=== PATIENT | male | born 1960 | race Two or more races ===

== ENCOUNTER 2024-09-03 10:15 | Emergency (ER) | payer MEDICAID, SELFPAY ==
[2024-09-03] VITALS (7 sets, daily range): BP systolic 163–198; BP diastolic 103–110; PULSE 89–104; RESP 18–20; TEMP 36.8–37.1; O2SAT 96–98; BMI 24.1
--- NOTE | ~2024-09-03 | XR_ITS ---
EXAMINATION: XR SACROILIAC JOINT 3 OR MORE VIEWS HISTORY: Right joint pain. COMPARISON: There are no prior studies for comparison. FINDINGS: Four views of the bilateral sacroiliac joints are submitted. The joint spaces are preserved. No erosions are seen. XR/XR sacroiliac joint min 3V IMPRESSION: Unremarkable examination of the bilateral sacroiliac joints. Electronically signed by: Reynaldo Llanos MD 09/03/2024 01:34 PM EDT
--- NOTE | ~2024-09-03 | XR_ITS ---
EXAMINATION: XR LUMBAR SPINE 2-3 VIEWS HISTORY: Back pain COMPARISON: There are no prior studies for comparison. FINDINGS: AP, lateral, and coned down views of the lumbar spine are submitted. Osseous mineralization is normal. Five nonrib-bearing lumbar vertebral bodies are identified, maintaining normal height without evidence of fracture or spondylolisthesis. There is mild rightward curvature which may positional in nature. There is mild degenerative disc disease with anterior and lateral spurring. The intervertebral discs bases are preserved. The posterior elements are intact. The visualized paraspinal soft tissues are unremarkable. XR/XR lumbar spine 2-3V IMPRESSION: Degenerative changes of the lumbar spine as described. Electronically signed by: Reynaldo Llanos MD 09/03/2024 01:33 PM EDT
--- NOTE | ~2024-09-03 | XR_ITS ---
EXAMINATION: XR CHEST CLINICAL INFORMATION: New onset hypertension COMPARISON: None available. TECHNIQUE: Frontal view of the chest was obtained. FINDINGS: No consolidation, pleural effusion or pneumothorax. Cardiomediastinal silhouette size is normal. Calcified plaque thoracic arch. Multilevel thoracic spondylosis. XR/XR chest 1V IMPRESSION: No acute airspace disease. No cardiomegaly. Electronically signed by: Niels Juan MD 09/03/2024 11:47 AM EDT
--- NOTE | 2024-09-03 11:28 | ECG_ITS ---
Test Reason : high bp Blood Pressure : */* mmHG Vent. Rate : 94 BPM Atrial Rate : 94 BPM P-R Int : 154 ms QRS Dur : 86 ms QT Int : 364 ms P-R-T Axes : 52 38 15 degrees QTcB Int : 455 ms Normal sinus rhythm Normal ECG No previous ECGs available Referred By: Alonso Mason Electronically Signed By: SHERINE CONTRERAS MD
--- NOTE | 2024-09-03 11:59 | ED.GENADULT ---
HPI - General Adult General Chief complaint: Extremity Injury, Lower Stated complaint: BLE PAIN X3D,HIGH BP,FROM [facility]ALK[facility] PER EMS Time Seen by Provider: 09/03/24 11:11 Source: patient and tobacco sizer Mode of arrival: ambulatory Limitations: no limitations History of Present Illness ED Provider: DR. Mason HPI narrative: 63-year-old male with no known past medical history has not seen PCP for 20 years was referred from walk-in clinic for further evaluation of high blood pressure. Patient went to walk-in clinic for evaluation of burning sensation in itching sensation along his right leg for many years, and 5 days history of left lower extremity pain start from his left hip radiating down to the back of his left knee, no back pain, no urinary or stool incontinence, no dysuria. Patient is unaware of history of high blood pressure, no headache, no chest pain, no abdominal pain, no fever, chills, not taking any medication for high blood pressure, patient declined use of any drugs. Related Data Previous Rx's ?Medication ?Instructions ?Recorded amlodipine 5 mg tablet 5 mg PO DAILY #30 tabs 09/03/24 ibuprofen 800 mg tablet 800 mg PO Q8H PRN pain #14 tabs 09/03/24 Allergies Allergy/AdvReac Type Severity Reaction Status Date / Time No Known Allergies Allergy Verified 09/03/24 10:39 Review of Systems Review of Systems: All other systems are reviewed and are negative Constitutional: Reports as per HPI and Reports no additional constitutional complaints Eyes: Reports as per HPI and Reports no additional eye complaints Reports system reviewed and no additional complaints, except as documented Cardiovascular: Reports as per HPI and Reports no additional cardiovascular complaints Respiratory: Reports as per HPI and Reports no additional respiratory complaints Gastrointestinal: Reports as per HPI and Reports no additional gastrointestinal complaints Genitourinary: Reports no additional female genitourinary complaints Musculoskeletal: Reports no additional musculoskeletal complaints Skin/Breast: Reports system reviewed and no additional complaints, except as docu Psychiatric: Reports no additional psychiatric complaints Endocrine: Reports no additional endocrine complaints Hematologic/Lymphatic: Reports no additional hematologic/lymphatic complaints Allergic/Immunologic: Reports no additional allergic/immunologic complaints Reports system reviewed and no additional complaints, except as documented and Reports Abnormal speech present [facility] Social History Social History Unable to assess alcohol history related to: Unknown Use of substances other than those prescribed or required for medical reasons: Unknown Advance Directives: No Advance Directives Information Provided: No Physical Exam ED Vital Signs: Vital Signs - 24 hr 09/03/24 10:32 09/03/24 10:36 09/03/24 12:07 Temperature 98.8 F 98.8 F Pulse Rate 101 H 101 H Respiratory Rate 20 20 Blood Pressure 197/104 H 197/104 H 181/110 H Pulse Oximetry 98 98 Oxygen Delivery Method Room Air Room Air 09/03/24 12:28 09/03/24 13:51 Temperature 98.5 F Pulse Rate 97 89 Respiratory Rate 18 20 Blood Pressure 163/103 H Pulse Oximetry 97 96 Oxygen Delivery Method Room Air Room Air BMI result Body Mass Index 24.1 Vital signs have been reviewed and appear to be correct. Blood pressure elevated. Heart rate normal. Respiratory rate normal. Temperature normal. Oxygen saturation normal. Appearance: Alert. Oriented X3. No acute distress. Head: Normal external exam. Normocephalic. Atraumatic. No Villarreal signs noted. No raccoon eyes noted Eyes: PERRLA. EOMI. Conjunctiva and sclera normal. Eyelids normal. ENT: TM's Normal. Pharynx normal. Uvula midline. Moist mucous membranes. No trismus noted. No drooling noted. No muffled voice noted. Neck: Normal inspection. Neck supple. FROM. No adenopathy. Thyroid Normal. No meningeal signs. No neck mass noted. CVS: Normal heart rate and rhythm. Heart sound normal. No murmurs noted. Pulses normal throughout. Respiratory: No respiratory distress. Painless inspiration. Breath sounds normal. No wheezes/rales/rhonchi noted. Chest nontender. No accessory muscle usage noted or decreased air movement noted. Abdomen: Soft and nontender. Bowel sounds normal in all 4 quadrants. No distention noted. No organomegaly noted. No visible injury noted. Back: No CVA tenderness. Full range of motion noted. Skin: Skin warm and dry. Normal skin color. Normal skin turgor. No rashes/lesions/lacerations noted. Extremities: No lower extremity edema. Extremities exhibit normal range of motion. Extremities nontender. Neuro: Oriented X 3. Cranial nerve exam: II-XII are grossly intact No motor deficit. No sensory deficit. Reflexes normal. Course Reevaluation(s) Reevaluation #1: 63-year-old male with no known past medical history and has not been evaluated by a doctor for 20 years sent from walk-in clinic for evaluation of high blood pressure, patient is also been complaining of multiple symptoms appeared to be chronic. 1. Essential hypertension patient improved in the ED with amlodipine and control the pain of his left lower extremity. Will start the patient on amlodipine, patient was instructed using the tobacco sizer to follow-up with PCP, patient was given a prescription for a non supply of amlodipine 5 mg. 2. Left lumbar radiculopathy patient improved with pain medication anti-inflammatory medication discharge on a NSAIDs. Time: 14:17 Medications Administered Discontinued Medications Generic Name Dose Route Start Last Admin Trade Name Orlandoq PRN Reason Stop Dose Admin Amlodipine Besylate 5 mg 09/03/24 11:26 09/03/24 12:07 Amlodipine Besylate 5 Mg Tablet PO 09/03/24 11:27 5 mg ONCE ONE Administration Protocol Ibuprofen 400 mg 09/03/24 11:26 09/03/24 12:06 Ibuprofen 400 Mg Tablet PO 09/03/24 11:27 400 mg ONCE ONE Administration Oxycodone HCl 5 mg 09/03/24 11:26 09/03/24 12:06 Oxycodone Hcl Immed Release 5 Mg Tablet PO 09/03/24 11:27 5 mg ONCE ONE Administration Medical Decision Making Differential Diagnosis Differential Diagnoses: The differential diagnosis associated with the presentation includes (Left Lumbar radiculopathy, iliosacral arthritis, essential hypertension, end-organ damage from untreated hypertension electrolyte derangement, severe anemia.) Admission/Observation Consideration of admission/observation: Escalation of care including admission/observation considered Lab Data MDM Lab Attestation statement: I reviewed the patient's lab results. 09/03/24 12:03 09/03/24 12:03 Labs: Lab Results 09/03/24 Range/Units 12:03 WBC 6.6 (4.8-10.8) X10*3/uL RBC 4.73 (4.60-5.80) X10*6/uL Hgb 13.5 L (14.0-18.0) g/dl Hct 38.9 L (42.0-52.0) % MCV 82.2 (80.0-98.0) fL MCH 28.5 (27.0-33.0) pg MCHC 34.7 (31.0-36.0) g/dl RDW 12.2 (11.0-16.0) % Plt Count 254 (160-400) X10*3/uL MPV 10.3 (9.4-12.4) fL Immature Gran % (Auto) 0.3 (0.0-0.4) % Neut % (Auto) 63.7 (45-73) % Lymph % (Auto) 27.1 (20-40) % Hendricks % (Auto) 7.2 (2-11) % Eos % (Auto) 0.9 (0-4) % Baso % (Auto) 0.8 (0-2) % Lymph # (Auto) 1.8 (1.2-4.9) X10*3/uL Hendricks # (Auto) 0.5 (0.1-1.2) X10*3/uL Eos # (Auto) 0.1 (0.0-0.4) X10*3/uL Baso # (Auto) 0.1 (0.0-0.2) X10*3/uL Abs Immat Gran (auto) 0.02 (0.00-0.03) X10*3/uL Absolute Neuts (auto) 4.2 (2.0-8.3) x10*3/uL Absolute Nucleated RBC 0.000 (0.0-0.012) X10*3/uL Nucleated RBC % (auto) 0.0 (0.0-0.2) /100WBC Sodium 142 (135-145) mmol/L Potassium 3.5 (3.3-5.1) mmol/L Chloride 103 (96-108) mmol/L Carbon Dioxide 28 (22-29) mmol/L Anion Gap 15 (12-20) BUN 11 (9-16) mg/dL Creatinine 0.85 (0.5-1.4) mg/dL Estim Creat Clear Calc 77.3 Estimated GFR > 60 Random Glucose 95 (60-115) mg/dL Calcium 9.0 (8.4-10.2) mg/dL Total Bilirubin 0.6 (0.0-1.0) mg/dL Direct Bilirubin 0.2 (0.0-0.5) mg/dL AST 32 (5-37) U/L ALT 22 (0-40) U/L Alkaline Phosphatase 70 (39-117) U/L Troponin I High Sens 8.9 (<3.5-35.0) ng/L Total Protein 7.6 (6.5-8.0) g/dL Albumin 4.1 (3.5-5.0) g/dL Lipase 20 (8-78) U/L Urine Color Yellow Urine Appearance Clear Urine pH 6.0 (5.0-9.0) Ur Specific [place] 1.015 (1.005-1.025) Urine Protein 30 (1+) H (Neg-Trace) mg/dL Urine Glucose (UA) Negative (Negative) mg/dL Urine Ketones Negative (Negative) mg/dL Urine Blood Negative (Negative) Urine Nitrite Negative (Negative) Ur Leukocyte Esterase Negative (Negative) Urine RBC 0-2 (0-2) /HPF Urine WBC 0-5 (0-5) /HPF Ur Squamous Epith Cells 0-2 (0-2) /HPF Urine Bacteria None Seen (None Seen) Hyaline Casts 0-2 (0-2) /LPF Independent Interpretation I performed an independent interpretation of an: EKG (Normal sinus rhythm at 94 beats per minutes, normal intervals, no ST-T changes.) and Plain X-Ray (Chest: Sacroiliac: Lumbar x-rays: No acute airspace disease, no cardiomegaly, unremarkable bilateral sacroiliac joints, degenerative change of lumbar spine.) Radiology Impression Discussion of test interpretation with radiology: I have reviewed the radiologist's reading. Discharge Plan Discharge Clinical Impression: Essential hypertension, Left lumbar radiculopathy Patient Disposition: Home, Self-Care Instructions: Lumbar Radiculopathy (ED), Hypertension (ED) Prescriptions: New amlodipine 5 mg tablet 5 mg PO DAILY Qty: 30 0RF ibuprofen 800 mg tablet 800 mg PO Q8H PRN (Reason: pain) Qty: 14 0RF Referrals: [facility] [Primary Care Provider] - Print Language: Angolan
[2024-09-03] MEDS: Ibuprofen 400 MG TABLET PO (12:06)
[2024-09-03] MEDS: oxyCODONE HCl Immed Release 5 MG TABLET PO (12:06)
[2024-09-03] MEDS: amLODIPine Besylate 5 MG TABLET PO (12:07)
[2024-09-03 12:08] LABS: MANUAL DIFF FLAG NO
[2024-09-03 12:10] LABS: Basophils Absolute Auto 0.1 X10*3/uL (0.0-0.2); Basophils Percent Auto 0.8 % (0-2); Eosinophils Absolute Auto 0.1 X10*3/uL (0.0-0.4); Eosinophils Percent Auto 0.9 % (0-4); Hematocrit 38.9 % (42.0-52.0); Hemoglobin 13.5 g/dl (14.0-18.0); Imm Gran Abs Auto 0.02 X10*3/uL (0.00-0.03); Imm Gran Pct Auto 0.3 % (0.0-0.4); Lymphocytes Absolute Auto 1.8 X10*3/uL (1.2-4.9); Lymphocytes Percent Auto 27.1 % (20-40); Mean Corpuscular HGB Conc 34.7 g/dl (31.0-36.0); Mean Corpuscular Hemoglobin 28.5 pg (27.0-33.0); Mean Corpuscular Volume 82.2 fL (80.0-98.0); Mean Platelet Volume 10.3 fL (9.4-12.4); Monocytes Absolute Auto 0.5 X10*3/uL (0.1-1.2); Monocytes Percent Auto 7.2 % (2-11); Neutrophils Absolute Auto 4.2 x10*3/uL (2.0-8.3); Neutrophils Percent Auto 63.7 % (45-73); Platelet Count 254 X10*3/uL (160-400); Red Blood Count 4.73 X10*6/uL (4.60-5.80); Red Cell Distribution Width 12.2 % (11.0-16.0); White Blood Count 6.6 X10*3/uL (4.8-10.8)
[2024-09-03 12:12] LABS: Appearance Urine Clear; Color Urine Yellow; Glucose Urine UA Negative (Negative); Leukocyte Esterase Urine Negative (Negative); Nitrite Urine Negative (Negative); Specific Gravity - Urine 1.015 (1.005-1.025); UMIC TRIGGER UACC YES; Urine Blood Negative (Negative); Urine Ketones Negative (Negative); Urine Protein 30 (1+) mg/dL (Neg-Trace)
[2024-09-03 12:14] LABS: Bacteria Urine None Seen (None Seen); Hyaline Casts Urine 0-2 /LPF (0-2); RBC Urine 0-2 /HPF (0-2); Squamous Epithelial Cell Urine 0-2 /HPF (0-2); WBC Urine 0-5 /HPF (0-5)
[2024-09-03 12:38] LABS: Troponin-I High Sensitivity 8.9 ng/L (<3.5-35.0)
[2024-09-03 12:43] LABS: Alanine Aminotransferase 22 U/L (0-40); Albumin Level 4.1 g/dL (3.5-5.0); Alkaline Phosphatase 70 U/L (39-117); Anion Gap 15 (12-20); Aspartate Amino Transferase 32 U/L (5-37); Bilirubin Direct 0.2 mg/dL (0.0-0.5); Bilirubin Total 0.6 mg/dL (0.0-1.0); Blood Urea Nitrogen 11 mg/dL (9-16); Carbon Dioxide 28 mmol/L (22-29); Chloride 103 mmol/L (96-108); Creatinine Clr Calc Pharmacy 77.3; Estimated Glomerular Filt Rate > 60; Glucose Random 95 mg/dL (60-115); Lipase 20 U/L (8-78); Potassium 3.5 mmol/L (3.3-5.1); Sodium 142 mmol/L (135-145); Total Protein 7.6 g/dL (6.5-8.0)
--- OUTSIDE RECORDS SUMMARY | 2024-09-03 13:21 | XMS_ITS | Clinical Summary ---
Author Organization [employer] Address [address] [facility] [address] [place] [address] Care Team Providers Care Hadoop Developer Name Role Phone Unavailable Primary Care Provider Unavailabl e Allergies No known active allergies Medications losartan (Cozaar) 50 MG tablet Take 1 tablet (50 mg) by mouth Once per day. 30 tablet 3 09/03/2024 6 Active hydroCHLOROthia zide (HYDRODiuril) 25 MG tablet Take 1 tablet (25 mg) by mouth Once per day. 30 tablet 3 09/03/2024 6 Active baclofen (Lioresal) 10 MG tablet Take 1 tablet (10 mg) by mouth if needed in the morning, at noon, and at bedtime for muscle spasms. 60 tablet 1 09/03/2024 5 Active acetaminophen (Tylenol 8 Hour) 650 MG ER tablet Take 1 tablet (650 mg) by mouth every 8 (eight) hours if needed for mild pain. Do not crush, chew, or split. 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 08/19/2024 Population Health Risk Score [facility] (C3) Department [address] [phone] Provider, Population Health Generic from Last 3 Months Social History Tobacco Use Types Packs/Day Years Used Date Smoking Tobacco: Never Assessed Sex and Gender Information Value Date Recorded Sex Assigned at Male 09/03/2024 8:38 AM EDT Legal Sex Male 1:53 PM EST Gender Identity Male 09/03/2024 8:38 AM EDT Sexual Orientation Straight 09/03/2024 8: 39 AM EDT Last Filed Vital Signs Vital Sign Reading Time Taken Comments Blood Pressure 220/132 09/03/2024 12:54 PM EDT Pulse 103 09/03/2024 8:56 AM EDT Temperature 36.6 ??C (97.9 ??F) 09/03/2024 8:56 AM ED T Respiratory Rate 18 09/03/2024 8:56 AM EDT Oxygen Saturation 97% 09/03/2024 8:56 AM EDT Inhaled Oxygen Concentration - - Weight 84.9 kg (187 lb 3.2 oz) 09/03/2024 8:56 A M EDT Height - - Body Mass Index - - Plan of Treatment Health Maintenance Due Date Last Done Comments CT Colonography 1960 Colonoscopy 1960 Colorectal Cancer Screening 1960 Depression Screening 1960 FIT DNA/Cologuard 1960 FIT 1960 FOBT 1960 HIV Screening 1960 Lipid Panel 1960 SDOH Screening 1960 Sigmoidoscopy 1960 Alcohol/Substance Use Screening 1972 Tobacco Screening 1972 Hepatitis C Screening 1978 DTaP/Tdap/Td Vaccines (1 - Tdap) 10/02/1979 Pneumococcal Vaccine: 50+ Ye ars (1 of 1 - PCV) 2010 Zoster Vaccines (1 of 2) 2010 COVID-19 Vaccine ( - 2023-2 5 season) 2024 Influenza Vaccine (#1) 2024 RSV Patients and Pa tients Aged 60 years or older (1 - 1-dose 75+ series) 10/02/2035 HIB Vaccines Aged Out No longer eligi ble based on patient's age to complete this topic HPV Vaccines Aged Out No longer eligi ble based on patient's age to complete this topic Hepatitis A Vaccines Aged Out No long er eligible based on patient's age to complete this topic Hepatitis B Vaccines Aged Out No long er eligible based on patient's age to complete this topic IPV Vaccines Aged Out No longer eligi ble based on patient's age to complete this topic Meningococcal Vaccine Aged Out No darrius daniel eligible based on patient's age to complete this topic RSV under 20 months Aged Out No longe r eligible based on patient's age to complete this topic Rotavirus Vaccines Aged Out No longer eligible based on patient's age to complete this topic Procedures Procedure Name Priority Date/Time Associated Diagnosis Comments LIPASE Routine 09/03/2024 12:03 PM EDT BASIC METABOLIC PANEL Routine 09/03/2024 12:03 PM EDT HEPATIC FUNCTION PANEL Routine 09/03/2024 12:03 PM EDT HIGH SENSITIVITY TROPONIN I Routine 09/03/2024 12:03 PM EDT from Last 3 Months Results * High Sensitivity Troponin I (09/03/2024 12:03 PM EDT) Pathologist [facility] TROPONIN I HIGH SENSITIVITY 8.9 <3.5 - 35.0 ng/L [facility] Comment:The Humphreys high sens itivity Troponin-I results should beused in conjunction with other diagnostic information suchas ECG, clinical observations and information, and patientsymptoms to aid in the diagnosis of ME. 09/03/2024 12:0 3 PM EDT 09/03/2024 12:06 PM EDT us Generic External Data Provider LAB BLOOD ORDERAB LES Final Result [facility] [address] [place] [phone] * Lipase (09/03/2024 12:03 PM EDT) Pathologist [facility] Lipase 20 8 - 78 U/L [facility] 09/03/2024 12:0 3 PM EDT 09/03/2024 12:06 PM EDT us Generic External Data Provider LAB BLOOD ORDERAB LES Final Result Performing Organization Address [facility]/ZIP Co de Phone Number [facility] [address] [place] [phone] * Hepatic Function Panel (09/03/2024 12:03 PM EDT) Pathologist [facility] Bilirubin, Total 0.6 0.0 - 1.0 mg/dL [facility] Bilirubin, Direct 0.2 0.0 - 0.5 mg/dL [facility] Aspartate Amino Transferase 32 5 - 37 U/L [facility] Alanine Aminotransferase 22 0 - 40 U/L [facility] Total Protein 7.6 6.5 - 8.0 g/dL [facility] Albumin Level 4.1 3.5 - 5.0 g/dL [facility] Alkaline Phosphatase 70 39 - 117 U/L [facility] 09/03/2024 12:0 3 PM EDT 09/03/2024 12:06 PM EDT Generic External Data Provider LAB BLOOD ORDERAB LES Final Result Performing Organization Address [facility] Co de Phone Number [facility] [address] [place] [phone] * Basic Metabolic Panel (09/03/2024 12:03 PM EDT) Sodium 142 135 - 145 mmol/L [facility] Potassium 3.5 3.3 - 5.1 mmol/L [facility] Chloride 103 96 - 108 mmol/L [facility] Carbon Dioxide 28 22 - 29 mmol/L [facility] Anion Gap 15 12 - 20 [facility] Urea Nitrogen (BUN) 11 9 - 16 mg/dL [facility] Creatinine, Serum 0.85 0.5 - 1.4 mg/dL [facility] Creatinine Clr Calc Pharmacy 77.3 [facility] Comment:eGFR (calculated fro m the MDRD study equation) and eCrCl(calculated from the Cockcroft-Gault equation) are based ondifferent parameters and may not yield comparable results.If eCrCl result is absurd, please check patient'sheight/weight. Estimated Glomerular Filt Rate >60 [facility] Comment:Chronic Kidney Disea se: Estimated GFR < 60 mL/min/[id number] Kidney Disease: Estimated GFR < 15 mL/min/1.73m2 Glucose 95 60 - 115 mg/dL [facility] Calcium 9.0 8.4 - 10.2 mg/dL [facility] 09/03/2024 12:0 3 PM EDT 09/03/2024 12:06 PM EDT us Generic External Data Provider LAB BLOOD ORDERAB LES Final Result Performing Organization Address City/State/[facility] Co de Phone Number [facility] [address] [place] [phone] from Last [address] [place] [address] [place] [address]
--- OUTSIDE RECORDS SUMMARY | 2024-09-03 13:21 | XMS_ITS | Encounter Summary ---
Author Organization [employer] Address [address] 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 Moore, 911 called for pt. Transfer to [facility] for non specific EKG changes and hypertensive crisis. Pt is a new pt to [facility], from [place], initially presented to [facility] for c/o bilat. Leg pain. No prior health data available. 911 called, MD calling expect report to ED. Triage BP 210/136 HR 103 911 called, pt's BP reassessed by this communications writer at 0955: Right arm, sitting 206/134 adult cuff HR 134 Pt denies chest pain, LUIS Reports bilat leg pain. 1000: EMS arrival, report given Manual BP rechecked: 200/110 Pt transported to [facility] Phone numbers confirmed: Pt: Brother Alex Michele: [phone] documented in this encounter Plan of Treatment Not on file documented as of this encounter Visit Diagnoses Not on filedocumented in this encounter
--- OUTSIDE RECORDS SUMMARY | 2024-09-03 13:21 | XMS_ITS | Encounter Summary ---
Author Organization [employer] Address [address] [facility] [address] [place] [address] Care Team Providers Care Geriatric Psychiatrist Name Role Phone Unavailable Primary Care Provider Unavailabl e Encounter Details Date Type Department Care Team (Late st Contact Info) Description 09/03/2024 Orders Only GENERIC EXTERNAL DATA DEPARTMENT Provider, Generic External Data Social History Tobacco Use Types Packs/Day Years Used Date Smoking Tobacco: Never Assessed Sex and Gender Information Value Date Recorded Sex Assigned at Male 09/03/2024 8:38 AM EDT Legal Sex Male 1:53 PM EST Gender Identity Male 09/03/2024 8:38 AM EDT Sexual Orientation Straight 09/03/2024 8: 39 AM EDT documented as of this encounter Plan of Treatment Not on file documented as of this encounter Procedures Procedure Name Priority Date/Time Associated Diagnosis Comments HIGH SENSITIVITY TROPONIN I Routine 09/03/2024 12:03 PM EDT LIPASE Routine 09/03/2024 12:03 PM EDT HEPATIC FUNCTION PANEL Routine 09/03/2024 12:03 PM EDT BASIC METABOLIC PANEL Routine 09/03/2024 12:03 PM EDT documented in this encounter Results * Lipase (09/03/2024 12:03 PM EDT) Lipase 20 8 - 78 U/L [facility] 09/03/2024 12:0 3 PM EDT 09/03/2024 12:06 PM EDT us Generic External Data Provider LAB BLOOD ORDERAB LES Final Result [facility] [address] [place] [phone] * Basic Metabolic Panel (09/03/2024 12:03 PM EDT) Sodium 142 135 - 145 mmol/L [facility] Potassium 3.5 3.3 - 5.1 mmol/L [facility] Chloride 103 96 - 108 mmol/L [facility] Carbon Dioxide 28 22 - 29 mmol/L [facility] Anion Gap 15 12 - 20 [facility] Urea Nitrogen (BUN) 11 9 - 16 mg/dL [facility] Creatinine, Serum 0.85 0.5 - 1.4 mg/dL [facility] Creatinine Clr Calc Pharmacy 77.3 [facility] Comment:eGFR (calculated fro m the MDRD study equation) and eCrCl(calculated from the Cockcroft-Gault equation) are based ondifferent parameters and may not yield comparable results.If eCrCl result is absurd, please check patient'sheight/weight. Estimated Glomerular Filt Rate >60 [facility] Comment:Chronic Kidney Disea se: Estimated GFR < 60 mL/min/[id number] Kidney Disease: Estimated GFR < 15 mL/min/1.73m2 Glucose 95 60 - 115 mg/dL [facility] Calcium 9.0 8.4 - 10.2 mg/dL [facility] 09/03/2024 12:0 3 PM EDT 09/03/2024 12:06 PM EDT us Generic External Data Provider LAB BLOOD ORDERAB LES Final Result [facility] [address] [place] [phone] * Hepatic Function Panel (09/03/2024 12:03 PM EDT) Bilirubin, Total 0.6 0.0 - 1.0 mg/dL [facility] Bilirubin, Direct 0.2 0.0 - 0.5 mg/dL [facility] Aspartate Amino Transferase 32 5 - 37 U/L [facility] Alanine Aminotransferase 22 0 - 40 U/L [facility] Total Protein 7.6 6.5 - 8.0 g/dL [facility] Albumin Level 4.1 3.5 - 5.0 g/dL [facility] Alkaline Phosphatase 70 39 - 117 U/L [facility] 09/03/2024 12:0 3 PM EDT 09/03/2024 12:06 PM EDT us Generic External Data Provider LAB BLOOD ORDERAB LES Final Result Performing Organization Address [facility] de Phone Number [facility] [address] [place] [phone] * High Sensitivity Troponin I (09/03/2024 12:03 PM EDT) TROPONIN I HIGH SENSITIVITY 8.9 <3.5 - 35.0 ng/L [facility] Comment:The Humhpreys high sens itivity Troponin-I results should beused in conjunction with other diagnostic information suchas ECG, clinical observations and information, and patientsymptoms to aid in the diagnosis of MS. 09/03/2024 12:0 3 PM EDT 09/03/2024 12:06 PM EDT us Generic External Data Provider LAB BLOOD ORDERAB LES Final Result Performing Organization Address [facility] Co de Phone Number [facility] [address] [place] [phone] documented in this encounter Visit Diagnoses Not on filedocumented in this encounter
--- OUTSIDE RECORDS SUMMARY | 2024-09-03 13:21 | XMS_ITS | Encounter Summary ---
Author Organization [employer] Address [address] [place] [address] Care Team Providers Care Demolition Hammer Operator Name Role Phone Unavailable Primary Care Provider Unavailabl e Reason for Referral * Imaging (Routine) - Authorized Specialty Diagnoses / Procedures Referred By Contac t Referred To Contact Cardiology Diagnoses Hypertensive emergency Bilateral leg pain Procedures Vascular US lower extremity arterial duplex bilateral Elizabeth Espinal DO [address] [place] [address] Phone: tel: fax: [address] Phone: tel: fax: Referral ID Status Reason Start Date Expiration Date Visits Requested Visits Authorized [id number] Authorized Perform Procedure 09/03/2024 09/03/2025 1 1 * Neurology (Routine) - Authorized Specialty Diagnoses / Procedures Referred By Contac t Referred To Contact Diagnoses Hypertensive emergency Bilateral leg pain Procedures Nerve conduction test Elizabeth Espinal DO [address] [place] [address] Phone: tel: fax: [address] Phone: tel: fax: Referral ID Status Reason Start Date Expiration Date V isits Requested Visits Authorized [id number] Authorized 09/03/2024 09/03/2025 1 1 * Neurology (Routine) - Authorized Specialty Diagnoses / Procedures Referred By Contac t Referred To Contact Diagnoses Hypertensive emergency Bilateral leg pain Procedures EMG Elizabeth Espinal DO [address] [place] [address] Phone: tel: fax: [address] Phone: tel: fax: Referral ID Status Reason Start Date Expiration Date V isits Requested Visits Authorized [id number] Authorized 09/03/2024 09/03/2025 1 1 Reason for Visit * Reason Comments Leg Pain Encounter Details Date Type Department Care Team (Late st Contact Info) Description 09/03/2024 9:20 AM EDT Office Visit [facility] [address], [place] [id number] Hypertensive emergency (Primary Dx); Bilateral leg pain Social History Tobacco Use Types Packs/Day Years Used Date Smoking Tobacco: Never Assessed Sex and Gender Information Value Date Recorded Sex Assigned at Male 09/03/2024 8:38 AM EDT Legal Sex Male 1:53 PM EST Gender Identity Male 09/03/2024 8:38 AM EDT Sexual Orientation Straight 09/03/2024 8: 39 AM EDT documented as of this encounter Last Filed Vital Signs Vital Sign Reading [...] - - Body Mass Index - - documented in this encounter Plan of Treatment Scheduled Orders Name Type Priority Associated Diagnoses Orde r Schedule T4, Free Lab Routine Hypertensive emergency Bilateral leg pain Expected: 09/03/2024 (Approximate), Expires: 09/03/2025 Vitamin D, 25-Hydroxy, Total, Immunoassay Lab Routine Hypertensive emergency Bilateral leg pain Expected: 09/03/2024 (Approximate), Expires: 09/03/2025 Lipid Panel, Standard Lab Routine Hypertensive emergency Bilateral leg pain Expected: 09/03/2024 (Approximate), Expires: 09/03/2025 TSH Lab Routine Hypertensive emergency Bilateral leg pain Expected: 09/03/2024 (Approximate), Expires: 09/03/2025 Hepatic Function Panel Lab Routine Hypertensive emergency Bilateral leg pain Expected: 09/03/2024 (Approximate), Expires: 09/03/2025 Hemoglobin A1c Lab Routine Hypertensive emergency Bilateral leg pain Expected: 09/03/2024 (Approximate), Expires: 09/03/2025 Basic Metabolic Panel Lab Routine Hypertensive emergency Bilateral leg pain Expected: 09/03/2024 (Approximate), Expires: 09/03/2025 CBC Lab Routine Hypertensive emergency Bilateral leg pain Expected: 09/03/2024, Expires: 09/03/2025 Albumin, Random Urine W/Creatinine Lab Routine Hypertensive emergency Bilateral leg pain Expected: 09/03/2024 (Approximate), Expires: 09/03/2025 Hepatitis B surface antigen, EIA Lab Routine Hypertensive emergency Bilateral leg pain Expected: 09/03/2024 (Approximate), Expires: 09/03/2025 Chlamydia/N. Gonorrhoeae RNA, TMA, Urogenitial Microbiology Routine Hypertensive emergency Bilateral leg pain Ordered: 09/03/2024 HIV-1/2 Antigen and Antibodies, Fourth Generation, with Reflexes Lab Routine Hypertensive emergency Bilateral leg pain Expected: 09/03/2024 (Approximate), Expires: 09/03/2025 Hepatitis C Antibody with Reflex to HCV, RNA, Quantitative, Real-Time PCR Lab Routine Hypertensive emergency Bilateral leg pain Expected: 09/03/2024, Expires: 09/03/2025 RPR (Monitor) with Reflex to??Titer Lab Routine Hypertensive emergency Bilateral leg pain Expected: 09/03/2024, Expires: 09/03/2025 Hepatitis B Surface Antibody, Qualitative Lab Routine Hypertensive emergency Bilateral leg pain Expected: 09/03/2024 (Approximate), Expires: 09/03/2025 Hepatitis A Antibody, Total Lab Routine Hypertensive emergency Bilateral leg pain Expected: 09/03/2024 (Approximate), Expires: 09/03/2025 Hepatitis B Core Antibody, Total Lab Routine Hypertensive emergency Bilateral leg pain Expected: 09/03/2024 (Approximate), Expires: 09/03/2025 T-SPOT??.TB Lab Routine Hypertensive emergency Bilateral leg pain Expected: 09/03/2024 (Approximate), Expires: 09/03/2025 Varicella zoster antibody, IgG Lab Routine Hypertensive emergency Bilateral leg pain Expected: 09/03/2024 (Approximate), Expires: 09/03/2025 Measles, Mumps, and Rubella (MMR) Antibodies??(IgG) Panel, Immune Status Lab Routine Hypertensive emergency Bilateral leg pain Expected: 09/03/2024 (Approximate), Expires: 09/03/2025 EMG Neurology Routine Hypertensive emergency Bilateral leg pain Expected: 09/03/2024 (Approximate), Expires: 09/03/2025 Nerve conduction test Neurology Routine Hypertensive emergency Bilateral leg pain Expected: 09/03/2024 (Approximate), Expires: 09/03/2025 XR Lumbar Spine 2-3 Views Imaging Routine Hypertensive emergency Bilateral leg pain Expected: 09/03/2024, Expires: 09/03/2025 ECG 12 lead ECG Routine Hypertensive emergency Ordered: 09/03/2024 documented as of this encounter Visit Diagnoses Diagnosis Hypertensive emergency- Primary Bilateral leg pain Pain in soft tissues of limb documented in this encounter
== END 2024-09-03 14:45 | disposition home or self-care (01) ==
PROVIDERS: Emergency Provider Emergency Medicine
DX: M54.16 Radiculopathy, lumbar region (principal); I10 Essential (primary) hypertension
CPT/HCPCS: 36415; 71045; 72100; 72202; 80048; 80076; 81001; 83690; 84484; 85025; 93005; 99283; 99285

== ENCOUNTER → 2024-09-03 11:28 | Outpatient (BNV) | payer MEDICAID, SELFPAY | PROVIDERS: Emergency Provider Emergency Medicine; Visit Provider Radiology Diagnostic Radiology | DX: I10 Essential (primary) hypertension (principal); M46.1 Sacroiliitis, not elsewhere classified; M51.360 Other intervertebral disc degeneration, lumbar region with discogenic back pain only | CPT/HCPCS: 71045; 72100; 72202 ==

== ENCOUNTER → 2024-09-03 11:28 | Outpatient (BNV) | payer MEDICAID, SELFPAY | PROVIDERS: Emergency Provider Emergency Medicine; Visit Provider Internal Medicine Cardiovascular Disease | DX: R03.0 Elevated blood-pressure reading, without diagnosis of hypertension (principal) | CPT/HCPCS: 93010 ==

== ENCOUNTER 2024-09-15 08:24 | Outpatient (REF) | payer MEDICAID, SELFPAY ==
--- NOTE | 2024-09-15 08:28 | EMG_ITS ---
Bilateral tibial and peroneal motor studies were performed. Bilateral superficial peroneal, sural, and median and lateral mixed plantar sensory studies were performed. Tibial H reflexes were obtained and paraspinal muscles were tested with a needle. IMPRESSION: Mild to moderate axonal sensory motor peripheral neuropathy. MD JASON Arreola/MELITONL / [id number]
--- OUTSIDE RECORDS SUMMARY | 2024-09-15 08:43 | XMS_ITS | Clinical Summary ---
Author Organization eTipping Address [address] 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 Name Role Phone Elziabeth Espinal DO Primary Care Provider Allergies No known active allergies Medications losartan [...] Description 09/03/2024 9:20 AM EDT Office Visit [facility] [address] [place] [address] Elizabeth Espinal DO Hypertensive emergency (Primary Dx); Bilateral leg pain 09/03/2024 Orders Only GENERIC EXTERNAL DATA DEPARTMENT Provider, Generic External Data 09/03/2024 Telephone [facility] [address] [place] [address] 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, pmo lead to [facility] 08/19/2024 Population Health Risk Score [facility] Department [address] [place] [address], [place] [phone] Provider, Population Health Generic from Last [...] Procedure Name Priority Date/Time Associated Diagnosis Comments ECG 12-LEAD Routine 09/03/2024 3:35 PM EDT Hypertensive emergency XR LUMBAR SPINE 2-3 VIEWS Routine 09/03/2024 1:20 PM EDT XR SACROILIAC JOINTS 3+ VIEWS Routine 09/03/2024 1:11 PM EDT URINALYSIS, COMPLETE, WITH REFLEX TO CULTURE Routine 09/03/2024 12:03 PM EDT CBC WITH AUTO DIFFERENTIAL Routine 09/03/2024 12:03 PM EDT LIPASE Routine 09/03/2024 12:03 PM EDT BASIC METABOLIC PANEL Routine 09/03/2024 12:03 PM EDT HEPATIC FUNCTION PANEL Routine 09/03/2024 12:03 PM EDT HIGH SENSITIVITY TROPONIN I Routine 09/03/2024 12:03 PM EDT XR CHEST 1 VIEW Routine 09/03/2024 11:28 AM EDT from Last 3 Months Results * ECG 12 lead (09/03/2024 3:35 PM EDT) Narrative Elizabeth Espinal DO - 09/03/2024 3:35 PM EDT Nml axis, nml intervals, SR @ 97bpm No q waves, no ST depression/elevation, TWI III, TWF aVF, V2 us Elizabeth Espinal DO ECG ORDERABLES Final Result * XR Lumbar Spine 2-3 Views (09/03/2024 1:20 PM EDT) Anatomical Region Laterality Modality Spine, L-spine Radiographic Maria C ging 09/03/2024 1:20 PM EDT Narrative 09/03/2024 1:36 PM EDT ? [facility] ?[address] ?[place] [address] ?XRay Report ? Signed ? Patient: Michael Yadav ?MR# ?? : [id number] ? : 1960 ?Acct:[id number] ? Age/Sex: 63 / M ?ADM Date: 09/03/24 ? Loc: HO.ED ? Attending Dr: ? Ordering Physician: Alonso Mason MD ?? Date of Service: 09/03/24 ?? Procedure(s): XR lumbar spine 2-3V ?? Accession Number(s): [id number] ? cc: Alonso Mason MD; [facility] ? EXAMINATION: ??XR LUMBAR SPINE 2-3 VIEWS ? HISTORY: Back pain ? COMPARISON: There are no prior studies for comparison. ? FINDINGS: ??AP, lateral, and coned down views of the lumbar spine are ?? submitted. ??Osseous mineralization is normal. ??Five nonrib-bearing ?? lumbar vertebral bodies are identified, maintaining normal height ?? without evidence of fracture or spondylolisthesis. There is mild ?? rightward curvature which may positional in nature. ??There is mild ?? degenerative disc disease with anterior and lateral spurring. The ?? intervertebral discs bases are preserved. ??The posterior elements are ?? intact. ??The visualized paraspinal soft tissues are unremarkable. ? XR/XR lumbar spine 2-3V ?? IMPRESSION: ?? Degenerative changes of the lumbar spine as described. ? Electronically signed by: ??Reynaldo Llanos MD ??09/03/2024 01:33 PM EDT ?? RP ? Dictated By: ?Reynaldo Llanos MD ? Signed By: ?<Electronically signed by Reynaldo Llanos MD in OV> ?09/03/24 1333 ? DD/ 1320 ? TD/TT: 09/03/24 1329 ? Magnetic Testing Technician: ? Procedure Note Donotuseinterpreter, Image - 09/03/2024 [place] [address] XRay Report Signed Patient: Kat Yadav# : [id number] : 1Acct:[id number] Age/Sex: 63 / MADM Date: 09/03/24 Loc: .ED Attending Dr: Ordering Physician: Alonso Mason MD Date of Service: 09/03/24 Procedure(s): XR lumbar spine 2-3V Accession Number(s): [id number] cc: Alonso Mason MD; [facility] EXAMINATION: XR LUMBAR SPINE 2-3 VIEWS HISTORY: Back pain COMPARISON: There are no prior studies for comparison. FINDINGS: AP, lateral, and coned down views of the lumbar spine are submitted. Osseous mineralization is normal. Five nonrib-bearing lumbar vertebral bodies are identified, maintaining normal height without evidence of fracture or spondylolisthesis. There is mild rightward curvature which may positional in nature. There is mild degenerative disc disease with anterior and lateral spurring. The intervertebral discs bases are preserved. The posterior elements are intact. The visualized paraspinal soft tissues are unremarkable. XR/XR lumbar spine 2-3V IMPRESSION: Degenerative changes of the lumbar spine as described. Electronically signed by: Reynaldo Llanos MD 09/03/2024 01:33 PM EDT Dictated By: Reynaldo Llanos MD Signed By: <Electronically signed by Reynaldo Llanos MD in OV> 09/03/24 1333 DD/ 1320 TD/TT: 09/03/24 1329 Magnetic Testing Technician: us [facility] External Provider IMG XR PROCEDURES Final Result * XR Sacroiliac Joints 3+ Views (09/03/2024 1:11 PM EDT) Anatomical Region Laterality Modality Sacroiliac joint, Pelvis Radiogr aphic Imaging 09/03/2024 1:11 PM EDT Narrative 09/03/2024 1:37 PM EDT ? [facility] ?[address] ?[place] [address] ?XRay Report ? Signed ? Patient: Michael Yadav ?MR# ?? : [id number] ? : 1960 ?Acct:[id number] ? Age/Sex: 63 / M ?ADM Date: 09/03/24 ? Loc: HO.ED ? Attending Dr: ? Ordering Physician: Alonso Mason MD ?? Date of Service: 09/03/24 ?? Procedure(s): XR sacroiliac joint min 3V ?? Accession Number(s): [id number] ? cc: Alonso Mason MD; [facility] ? EXAMINATION: ??XR SACROILIAC JOINT 3 OR MORE VIEWS ? HISTORY: Right joint pain. ? COMPARISON: There are no prior studies for comparison. ? FINDINGS: ??Four views of the bilateral sacroiliac joints are submitted. ?? The joint spaces are preserved. No erosions are seen. ? XR/XR sacroiliac joint min 3V ?? IMPRESSION: ?? Unremarkable examination of the bilateral sacroiliac joints. ? Electronically signed by: ??Reynaldo Llanos MD ??09/03/2024 01:34 PM EDT ?? RP ? Dictated By: ?Faberman,Reynaldo MD ? Signed By: ?<Electronically signed by Reynaldo Llanos MD in OV> ?09/03/24 1334 ? DD/ 1311 ? TD/TT: 09/03/24 1329 ? Magnetic Testing Technician: ? Procedure Note Clayton Roland - 09/03/[address] [address] XRay Report Signed Patient: Kat Yadav# : [id number] : 1Acct:[id number] Age/Sex: 63 / MADM Date: 09/03/24 Loc: .ED Attending Dr: Ordering Physician: Alonso Mason MD Date of Service: 09/03/24 Procedure(s): XR sacroiliac joint min 3V Accession Number(s): [id number] cc: Alonso Mason MD; [facility] EXAMINATION: XR SACROILIAC JOINT 3 OR MORE VIEWS HISTORY: Right joint pain. COMPARISON: There are no prior studies for comparison. FINDINGS: Four views of the bilateral sacroiliac joints are submitted. The joint spaces are preserved. No erosions are seen. XR/XR sacroiliac joint min 3V IMPRESSION: Unremarkable examination of the bilateral sacroiliac joints. Electronically signed by: Reynaldo Llanos MD 09/03/2024 01:34 PM EDT RP Dictated By: Reynaldo Llanos MD Signed By: <Electronically signed by Reynaldo Llanos MD in OV> 09/03/24 1334 DD/ 1311 TD/TT: 09/03/24 1329 Magnetic Testing Technician: us [facility] External Provider IMG XR PROCEDURES Final Result * High Sensitivity Troponin I (09/03/2024 12:03 PM EDT) Pathologist [facility] TROPONIN I HIGH SENSITIVITY 8.9 <3.5 - 35.0 ng/L [facility] Comment:The Humphreys high sens itivity Troponin-I results should beused in conjunction with other diagnostic information suchas ECG, clinical observations and information, and patientsymptoms to aid in the diagnosis of [place]. 09/03/2024 12:0 3 PM EDT 09/03/2024 12:06 PM EDT Generic External Data Provider LAB BLOOD ORDERAB LES Final Result [facility] [address] [place] [phone] * (ABNORMAL) Urinalysis, Complete, with Reflex to Culture (09/03/2024 12:03 PM EDT) Color Urine Yellow [facility] Appearance Urine Clear [facility] PH 6.0 5.0 - 9.0 [facility] Glucose Urine UA Negative Negative mg/dL [facility] Urine Blood Negative Negative [facility] Specific [place] - Urine 1.015 1.005 - 1.025 [facility] Urine Protein 30 (1+)(A) Neg-Trace mg/dL [facility] Urine Ketones Negative Negative mg/dL [facility] Nitrite Urine Negative Negative [facility] Leukocyte Esterase Urine Negative Negative [facility] RBC Urine 0-2 0 - 2 /HPF [facility] Urine WBC 0-5 0 - 5 /HPF [facility] Urine Squamous Epithelial Cell 0-2 0 - 2 /HPF [facility] Urine Bacteria None Seen None Seen [facility] Hyaline Casts, Urine 0-2 0 - 2 /LPF [facility] 09/03/2024 12:0 3 PM EDT 09/03/2024 12:06 PM EDT Narrative [facility] - 09/03/2024 12:16 PM EDT [id number], Clean Catch us Generic External Data Provider LAB URINE ORDERAB LES Final Result [facility] [address] [place] [address] [phone] * (ABNORMAL) CBC auto differential (09/03/2024 12:03 PM EDT) Pathologist [facility] White Blood Count 6.6 4.8 - 10.8 X10*3/uL [facility] Red Blood Count 4.73 4.60 - 5.80 X10*6/uL [facility] Hemoglobin 13.5(L) 14.0 - 18.0 g/dl [facility] Hematocrit 38.9(L) 42.0 - 52.0 % [facility] Mean Corpuscular Volume 82.2 80.0 - 98.0 fL [facility] Mean Corpuscular Hemoglobin 28.5 27.0 - 33.0 pg [facility] Mean Corpuscular HGB Conc 34.7 31.0 - 36.0 g/dl [facility] Red Cell Distribution Width 12.2 11.0 - 16.0 % [facility] Platelet Count 254 160 - 400 X10*3/uL [facility] Mean Platelet Volume 10.3 9.4 - 12.4 fL [facility] Neutrophils Percent Auto 63.7 45 - 73 % [facility] Imm Gran Pct Auto 0.3 0.0 - 0.4 % [facility] Lymphocytes Percent Auto 27.1 20 - 40 % [facility] Monocytes Percent Auto 7.2 2 - 11 % [facility] Eosinophils Percent Auto 0.9 0 - 4 % [facility] Basophils Percent Auto 0.8 0 - 2 % [facility] NRBC Pct Auto 0.0 0.0 - 0.2 /100WBC [facility] Neutrophils Absolute Auto 4.2 2.0 - 8.3 x10*3/uL [facility] Imm Gran Abs Auto 0.02 0.00 - 0.03 X10*3/uL [facility] Lymphocytes Absolute Auto 1.8 1.2 - 4.9 X10*3/uL [facility] Monocytes Absolute Auto 0.5 0.1 - 1.2 X10*3/uL [facility] Eosinophils Absolute Auto 0.1 0.0 - 0.4 X10*3/uL [facility] Basophils Absolute Auto 0.1 0.0 - 0.2 X10*3/uL [facility] NRBC Abs Auto 0.000 0.0 - 0.012 X10*3/uL [facility] 09/03/2024 12:0 3 PM EDT 09/03/2024 12:06 PM EDT us Generic External Data Provider LAB BLOOD ORDERAB LES Final Result [facility] [address] [place] [phone] * Lipase (09/03/2024 12:03 PM EDT) Pathologist [facility] Lipase 20 8 - 78 U/L [facility] 09/03/2024 12:0 3 PM EDT 09/03/2024 12:06 PM EDT Generic External Data Provider LAB BLOOD ORDERAB LES Final Result Performing Organization Address [facility]/ZIP Co de Phone Number [facility] [address] [place] [phone] * Hepatic Function Panel (09/03/2024 12:03 PM EDT) [facility] Bilirubin, Total 0.6 0.0 - 1.0 mg/dL [facility] Bilirubin, Direct 0.2 0.0 - 0.5 mg/dL [facility] Aspartate Amino Transferase 32 5 - 37 U/L [facility] Alanine Aminotransferase 22 0 - 40 U/L [facility] Total Protein 7.6 6.5 - 8.0 g/dL [facility] Albumin Level 4.1 3.5 - 5.0 g/dL [facility] Alkaline Phosphatase 70 39 - 117 U/L [facility] 09/03/2024 12:0 3 PM EDT 09/03/2024 12:06 PM EDT Generic External Data Provider LAB BLOOD ORDERAB LES Final Result Performing Organization Address City/[facility]/ZIP Co de Phone Number [facility] [address] [place] [phone] * Basic Metabolic Panel (09/03/2024 12:03 PM EDT) [facility] Sodium 142 135 - 145 mmol/L [facility] Potassium 3.5 3.3 - 5.1 mmol/L [facility] Chloride 103 96 - 108 mmol/L [facility] Carbon Dioxide 28 22 - 29 mmol/L [facility] Anion Gap 15 12 - 20 [facility] Urea Nitrogen (BUN) 11 9 - 16 mg/dL [facility] Creatinine, Serum 0.85 0.5 - 1.4 mg/dL [facility] Creatinine Clr Calc Pharmacy 77.3 [facility] Comment:eGFR (calculated fro m the MDRD study equation) and eCrCl(calculated from the Cockcroft-Gault equation) are based ondifferent parameters and may not yield comparable results.If eCrCl result is absurd, please check patient'sheight/weight. Estimated Glomerular Filt Rate >60 [facility] Comment:Chronic Kidney Disea se: Estimated GFR < 60 mL/min/1.40h2Ldvjup Kidney Disease: Estimated GFR < 15 mL/min/1.73m2 Glucose 95 60 - 115 mg/dL [facility] Calcium 9.0 8.4 - 10.2 mg/dL [facility] 09/03/2024 12:0 3 PM EDT 09/03/2024 12:06 PM EDT us Generic External Data Provider LAB BLOOD ORDERAB LES Final Result Performing Organization Address City/State/[facility] Co de Phone Number [facility] [address] [place] [phone] * XR Chest 1 View (09/03/2024 11:28 AM EDT) Anatomical Region Laterality Modality Chest Radiographic Maria C ging 09/03/2024 11:2 8 AM EDT Narrative 09/03/2024 11:50 AM EDT ? [facility] ?[address] ?[place] [address] ?XRay Report ? Signed ? Patient: Greenwood Kyrie,Michael ?MR# ?? : [id number] ? : 1960 ?Acct:[id number] ? Age/Sex: 63 / M ?ADM Date: 04/17/25 ? Loc: HO.ED ? Attending Dr: ? Ordering Physician: Alonso Mason MD ?? Date of Service: 09/03/24 ?? Procedure(s): XR chest 1V ?? Accession Number(s): [id number] ? cc: Alonso Mason MD; [facility] ? EXAMINATION: ?? XR CHEST ? CLINICAL INFORMATION: ?? New onset hypertension ? COMPARISON: ?? None available. ? TECHNIQUE: ?? Frontal view of the chest was obtained. ? FINDINGS: ?? No consolidation, pleural effusion or pneumothorax. Cardiomediastinal ?? silhouette size is normal. Calcified plaque thoracic arch. Multilevel ?? thoracic spondylosis. ? XR/XR chest 1V ?? IMPRESSION: ?? No acute airspace disease. ?? No cardiomegaly. ? Electronically signed by: ??Niels Juan MD ??09/03/2024 11:47 AM ?? EDT RP ? Dictated By: ?Niels Ohara MD ? Signed By: ?<Electronically signed by Niels Guidry MD in OV> ? 09/03/24 1147 ? DD/ 1128 ? TD/TT: 09/03/24 1141 ? Magnetic Testing Technician: ? Procedure Note Donviniciuster, Image - 09/04/2024 [place] [address] XRay Report Signed Patient: Kat Yadav# : [id number] : 1Acct:[id number] Age/Sex: 63 / MADM Date: 09/03/24 Loc: HO.ED Attending Dr: Ordering Physician: Alonso Mason MD Date of Service: 09/03/24 Procedure(s): XR chest 1V Accession Number(s): [id number] cc: Alonso Mason MD; [facility] EXAMINATION: XR CHEST CLINICAL INFORMATION: New onset hypertension COMPARISON: None available. TECHNIQUE: Frontal view of the chest was obtained. FINDINGS: No consolidation, pleural effusion or pneumothorax. Cardiomediastinal silhouette size is normal. Calcified plaque thoracic arch. Multilevel thoracic spondylosis. XR/XR chest 1V IMPRESSION: No acute airspace disease. No cardiomegaly. Electronically signed by: Niels Juan MD 09/03/2024 11:47 AM EDT Dictated By: Niels Ohara MD Signed By: <Electronically signed by Niels Guidry MDin OV> 09/03/24 1147 DD/ 1128 TD/TT: 09/03/24 1141 Magnetic Testing Technician: [facility] External Provider IMG XR PROCEDURES Final Result from Last [address] [facility] Care Teams Lottery Office Manager Relationship Specialty Start Date End Date Elizabeth Espinal DO [address] [place] [address] PCP - General Family Medicine 09/03/24
== END 2024-09-15 08:25 | disposition home or self-care (01) ==
LOC: HO.NEURO 08:24
PROVIDERS: Visit Provider Family Medicine
DX: I16.1 Hypertensive emergency (principal); G62.9 Polyneuropathy, unspecified; M79.604 Pain in right leg; M79.605 Pain in left leg
CPT/HCPCS: 95886; 95913

== ENCOUNTER 2024-10-07 12:20 | Outpatient (REF) | payer MEDICAID, SELFPAY ==
--- NOTE | ~2024-10-07 | US_ITS ---
EXAMINATION: COLOR-FLOW DUPLEX IMAGING OF THE BILATERAL LOWER EXTREMITY ARTERIAL SYSTEM. CLINICAL INFORMATION: Bilateral lower extremity pain, worse with ambulation. FINDINGS: Atheromatous Plaque: Mild bilateral scattered atheromatous plaque. RIGHT FEMORAL RUNOFF VELOCITIES: The right common femoral artery measures 146 cm/s and triphasic. (Mild stenosis by velocity criteria) The right profunda femoral artery is 86 cm/s and is triphasic. The right proximal superficial femoral artery measures 104 cm/s and triphasic. The right mid superficial femoral artery is 83 cm/s and triphasic. The right distal right superficial femoral artery measures 73 cm/s and is triphasic. The right popliteal velocity measures 51 cm/s and is triphasic. The right posterior tibial artery velocity measures 48 cm/s and is biphasic. The right peroneal artery velocity measures 38 cm/s and is biphasic. The right anterior tibial artery measures 42 cm/s and is biphasic. There is reversal of flow within the right DPA. LEFT FEMORAL RUNOFF VELOCITIES: The left common femoral artery measures 110 cm/s and triphasic. The left profunda femoral artery is 78 cm/s and is triphasic. The left proximal superficial femoral artery measures 76 cm/s and biphasic. The left mid superficial femoral artery is 75 cm/s and biphasic. The left distal right superficial femoral artery measures 62 cm/s and is triphasic. The left popliteal velocity measures 53 cm/s and is triphasic. The left posterior tibial artery velocity measures 53 cm/s and is triphasic. The left anterior tibial artery measures 41 cm/s and is biphasic. There is reversal of flow within the left DPA. US/US arterial duplex LE BI IMPRESSION: 1. Scattered mild calcified atherosclerotic disease is present. 2. Biphasic waveforms in the RIGHT posterior tibial artery, right peroneal artery, and right anterior tibial artery. 3. Biphasic waveforms in the LEFT proximal and mid superficial femoral arteries, and the left anterior tibial artery. 4. Reversal of flow in both dorsalis pedis arteries, indicating probable underlying peripheral artery disease. Electronically signed by: Mian Vallejo MD 10/07/2024 03:10 PM EDT
--- OUTSIDE RECORDS SUMMARY | 2024-10-07 13:12 | XMS_ITS | Clinical Summary ---
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 30 tablet 3 09/03/2024 09/04/19 26 Active hydroCHLOROthia zide (HYDRODiuril) 25 MG tablet Take 1 tablet (25 mg) by mouth Once per day. 30 tablet 3 09/03/2024 09/04/19 26 Active baclofen (Lioresal) 10 MG tablet Take 1 tablet (10 mg) by mouth if needed in the morning, at noon, and at bedtime for muscle spasms. 60 tablet 1 09/03/2024 11/03/19 25 Active acetaminophen (Tylenol 8 Hour) 650 MG ER tablet Take 1 tablet (650 mg) by mouth every 8 (eight) hours if needed for mild pain. Do not crush, chew, or split. 40 tablet 1 09/03/2024 10/04/19 25 Active Problems No known active problems Encounters Date Type Department Care Team Description 09/03/2024 9:20 AM EDT Office Visit [facility] [address] [place] [address] Elizabeth Espinal DO Hypertensive emergency (Primary Dx); Bilateral leg pain 09/03/2024 Orders Only GENERIC EXTERNAL DATA DEPARTMENT Provider, Generic External Data 09/03/2024 Telephone [facility] [address] [place] [address] 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, estate and trust tax principal to [facility] ED 08/19/2024 Population Health Risk Score [facility] [address] [place] [address], [place] [id number] Provider, Population Health Generic from Last 3 [...] Panel 1960 SDOH Screening 1960 Sigmoidoscopy 1960 Disability Screening 1960 Alcohol/Substance Use Screening 1972 Tobacco Screening [...] patient's age to complete this topic Meningococcal B Vaccine Aged Out No l onger eligible based on patient's age to complete [...] EDT Narrative 09/03/2024 1:36 PM EDT ? [facility] ?[address] ?[place] [address] ?XRay Report ? Signed ? Patient: Michael Yadav ?MR# ?? : [id number] ? : 1960 ?Acct:[id number] ? Age/Sex: 63 / M ?ADM Date: 09/03/24 ? Loc: HO.ED ? Attending Dr: ? Ordering Physician: Alonso Mason MD ?? Date of Service: 09/03/24 ?? Procedure(s): XR lumbar spine 2-3V ?? Accession Number(s): [id number] ? cc: Alonso Mason MD; [facility] ? EXAMINATION: ??XR LUMBAR SPINE 2-3 VIEWS [...] DD/ 1320 ? TD/TT: 09/03/24 1329 ? Personal Care Attendant: ? Procedure Note Donotuseinterpreter, Image - 09/03/[address] [address] XRay Report Signed Patient: Kat Yadav# : [id number] : 1960cct:[id number] Age/Sex: 63 / MADM Date: 09/03/24 Loc: .ED Attending Dr: Ordering Physician: Alonso Mason MD Date of Service: 09/03/24 Procedure(s): XR lumbar spine 2-3V Accession Number(s): [id number] cc: Alonso Mason MD; [facility] EXAMINATION: XR LUMBAR SPINE 2-3 VIEWS HISTORY: [...] 09/03/24 1333 DD/ 1320 TD/TT: 09/03/24 1329 Personal Care Attendant: us [facility] External Provider IMG XR PROCEDURES Final Result * XR Sacroiliac Joints 3+ Views (09/03/2024 1:11 PM EDT) Anatomical Region Laterality Modality Sacroiliac joint, Pelvis Radiogr aphic Imaging 09/03/2024 1:11 PM EDT Narrative 09/03/2024 1:37 PM EDT ? [facility] ?[address] ?[place] [address] ?XRay Report ? Signed ? Patient: Michael Yadav ?MR# ?? : [id number] ? : 1960 ?Acct:[id number] ? Age/Sex: 63 / M ?ADM Date: 09/03/24 ? Loc: HO.ED ? Attending Dr: ? Ordering Physician: Alonso Mason MD ?? Date of Service: 09/03/24 ?? Procedure(s): XR sacroiliac joint min 3V ?? Accession Number(s): [id number] ? cc: Alonso Mason MD; [facility] ? EXAMINATION: ??XR SACROILIAC JOINT 3 OR [...] ??Reynaldo Llanos MD ??09/03/2024 01:34 PM EDT ? Dictated By: ?Reynaldo Llanos MD ? Signed By: ?<Electronically signed by Reynaldo Llanos MD in OV> ?09/03/24 1334 ? DD/ 1311 ? TD/TT: 09/03/24 1329 ? Personal Care Attendant: ? Procedure Note Clayton Roland - 09/03/2024 [facility] [address] [place] [address] XRay Report Signed Patient: Kat Yadav# : [id number] : 1Acct:[id number] Age/Sex: 63 / MADM Date: 09/03/24 Loc: HO.ED Attending Dr: Ordering Physician: Alonso Mason MD Date of Service: 09/03/24 Procedure(s): XR sacroiliac joint min 3V Accession Number(s): [id number] cc: Alonso Mason MD; [facility] EXAMINATION: XR SACROILIAC JOINT 3 OR MORE [...] 09/03/24 1334 DD/ 1311 TD/TT: 09/03/24 1329 Personal Care Attendant: [facility] External Provider IMG XR PROCEDURES Final Result * High Sensitivity Troponin I (09/03/2024 12:03 PM EDT) TROPONIN I HIGH SENSITIVITY 8.9 <3.5 - 35.0 ng/L [facility] Comment:The Humphreys high sens itivity Troponin-I results should beused in conjunction with other diagnostic information suchas ECG, clinical observations and information, and patientsymptoms to aid in the diagnosis of MT. 09/03/2024 12:0 3 PM EDT 09/03/2024 12:06 PM EDT Generic External Data Provider LAB BLOOD ORDERAB LES Final Result [facility] [address] [place] [phone] * (ABNORMAL) Urinalysis, Complete, with Reflex to Culture (09/03/2024 12:03 PM EDT) Color Urine Yellow [facility] Appearance Urine Clear [facility] PH 6.0 5.0 - 9.0 [facility] Glucose Urine UA Negative Negative mg/dL [facility] Urine Blood Negative Negative [facility] Specific [place] - Urine 1.015 1.005 - 1.025 [facility] Urine Protein 30 (1+)(A) Neg-Trace mg/dL [facility] Urine Ketones Negative Negative mg/dL [facility] Nitrite Urine Negative Negative [facility] Leukocyte Esterase Urine Negative Negative [facility] RBC Urine 0-2 0 - 2 /HPF [facility] Urine WBC 0-5 0 - 5 /HPF [facility] Urine Squamous Epithelial Cell 0-2 0 - 2 /HPF [facility] Urine Bacteria None Seen None Seen [facility] Hyaline Casts, Urine 0-2 0 - 2 /LPF [facility] 09/03/2024 12:0 3 PM EDT 09/03/2024 12:06 PM EDT Narrative [facility] - 09/03/2024 12:16 PM EDT [id number], Clean Catch us Generic External Data Provider LAB URINE ORDERAB LES Final Result [facility] [address] [place] [phone] * (ABNORMAL) CBC auto differential (09/03/2024 12:03 PM EDT) White Blood Count 6.6 4.8 - 10.8 X10*3/uL [facility] Red Blood Count 4.73 4.60 - 5.80 X10*6/uL [facility] Hemoglobin 13.5(L) 14.0 - 18.0 g/dl [facility] Hematocrit 38.9(L) 42.0 - 52.0 % [facility] Mean Corpuscular Volume 82.2 80.0 - 98.0 fL [facility] Mean Corpuscular Hemoglobin 28.5 27.0 - 33.0 pg [facility] Mean Corpuscular HGB Conc 34.7 31.0 - 36.0 g/dl [facility] Red Cell Distribution Width 12.2 11.0 - 16.0 % [facility] Platelet Count 254 160 - 400 X10*3/uL [facility] Mean Platelet Volume 10.3 9.4 - 12.4 fL [facility] Neutrophils Percent Auto 63.7 45 - 73 % [facility] Imm Gran Pct Auto 0.3 0.0 - 0.4 % [facility] Lymphocytes Percent Auto 27.1 20 - 40 % [facility] Monocytes Percent Auto 7.2 2 - 11 % [facility] Eosinophils Percent Auto 0.9 0 - 4 % [facility] Basophils Percent Auto 0.8 0 - 2 % [facility] NRBC Pct Auto 0.0 0.0 - 0.2 /100WBC [facility] Neutrophils Absolute Auto 4.2 2.0 - 8.3 x10*3/uL [facility] Imm Gran Abs Auto 0.02 0.00 - 0.03 X10*3/uL [facility] Lymphocytes Absolute Auto 1.8 1.2 - 4.9 X10*3/uL [facility] Monocytes Absolute Auto 0.5 0.1 - 1.2 X10*3/uL [facility] Eosinophils Absolute Auto 0.1 0.0 - 0.4 X10*3/uL [facility] Basophils Absolute Auto 0.1 0.0 - 0.2 X10*3/uL [facility] NRBC Abs Auto 0.000 0.0 - 0.012 X10*3/uL [facility] 09/03/2024 12:0 3 PM EDT 09/03/2024 12:06 PM EDT us Generic External Data Provider LAB BLOOD ORDERAB LES Final Result Performing Organization Address City/[facility]/ZIP Co de Phone Number [facility] [address] [place] [phone] * Lipase (09/03/2024 12:03 PM EDT) Lipase 20 8 - 78 U/L [facility] 09/03/2024 12:0 3 PM EDT 09/03/2024 12:06 PM EDT us Generic External Data Provider LAB BLOOD ORDERAB LES Final Result Performing Organization Address [facility] Co de Phone Number [facility] [address] [place] [phone] * Hepatic Function Panel (09/03/2024 12:03 PM EDT) Bilirubin, Total 0.6 0.0 - 1.0 mg/dL [facility] Bilirubin, Direct 0.2 0.0 - 0.5 mg/dL [facility] Aspartate Amino Transferase 32 5 - 37 U/L [facility] Alanine Aminotransferase 22 0 - 40 U/L [facility] Total Protein 7.6 6.5 - 8.0 g/dL [facility] Albumin Level 4.1 3.5 - 5.0 g/dL [facility] Alkaline Phosphatase 70 39 - 117 U/L [facility] 09/03/2024 12:0 3 PM EDT 09/03/2024 12:06 PM EDT us Generic External Data Provider LAB BLOOD ORDERAB LES Final Result Performing Organization Address [facility] Co de Phone Number [facility] [address] [place] [phone] * Basic Metabolic Panel (09/03/2024 12:03 PM EDT) Sodium 142 135 - 145 mmol/L [facility] Potassium 3.5 3.3 - 5.1 mmol/L [facility] Chloride 103 96 - 108 mmol/L [facility] Carbon Dioxide 28 22 - 29 mmol/L [facility] Anion Gap 15 12 - 20 [facility] Urea Nitrogen (BUN) 11 9 - 16 mg/dL [facility] Creatinine, Serum 0.85 0.5 - 1.4 mg/dL [facility] Creatinine Clr Calc Pharmacy 77.3 [facility] Comment:eGFR (calculated fro m the MDRD study equation) and eCrCl(calculated from the Cockcroft-Gault equation) are based ondifferent parameters and may not yield comparable results.If eCrCl result is absurd, please check patient'sheight/weight. Estimated Glomerular Filt Rate >60 [facility] Comment:Chronic Kidney Disea se: Estimated GFR < 60 mL/min/1.19o4Ycffrv Kidney Disease: Estimated GFR < 15 mL/min/1.73m2 Glucose 95 60 - 115 mg/dL [facility] Calcium 9.0 8.4 - 10.2 mg/dL [facility] 09/03/2024 12:0 3 PM EDT 09/03/2024 12:06 PM EDT us Generic External Data Provider LAB BLOOD ORDERAB LES Final Result [facility] [address] [place] [phone] * XR Chest 1 View (09/03/2024 11:28 AM EDT) Anatomical Region Laterality Modality Chest Radiographic Maria C ging 09/03/2024 11:2 8 AM EDT Narrative 09/03/2024 11:50 AM EDT ? [facility] ?[address] ?[place] [address] ?XRay Report ? Signed ? Patient: Greenwood Kyrie,Michael ?MR# ?? : [id number] ? : 1960 ?Acct:[id number] ? Age/Sex: 63 / M ?ADM Date: 04/17/25 ? Loc: HO.ED ? Attending Dr: ? Ordering Physician: Alonso Mason MD ?? Date of Service: 09/03/24 ?? Procedure(s): XR chest 1V ?? Accession Number(s): [id number] ? cc: Alonso Mason MD; [facility] ? EXAMINATION: ?? XR CHEST ? CLINICAL [...] DD/ 1128 ? TD/TT: 09/03/24 1141 ? Personal Care Attendant: ? Procedure Note Asuncion, Image - 09/04/[address] [address] XRay Report Signed Patient: Gabby YadavdoMR# : [id number] : 1960cct:[id number] Age/Sex: 63 / MADM Date: 09/03/24 Loc: HO.ED Attending Dr: Ordering Physician: Alonso Mason MD Date of Service: 09/03/24 Procedure(s): XR chest 1V Accession Number(s): [id number] cc: Alonso Mason MD; [facility] EXAMINATION: XR CHEST CLINICAL INFORMATION: New onset [...] 09/03/24 1147 DD/ 1128 TD/TT: 09/03/24 1141 Personal Care Attendant: [facility] External Provider IMG XR PROCEDURES Final Result from Last 3 Months Insurance [employer] [facility] Care Teams Stem Roller Or Crusher Operator Relationship Specialty Start Date End Date Elizabeth Espinal DO [address] [place] [address] PCP - General Family Medicine 09/03/24
== END 2024-10-07 12:21 | disposition home or self-care (01) ==
LOC: HO.US 12:20
PROVIDERS: PCP Family Medicine; Visit Provider Family Medicine
DX: M79.604 Pain in right leg (principal); M79.605 Pain in left leg; I61.1 Nontraumatic intracerebral hemorrhage in hemisphere, cortical
CPT/HCPCS: 93925

== ENCOUNTER → 2024-10-07 12:23 | Outpatient (BNV) | payer MEDICAID, SELFPAY | PROVIDERS: PCP Family Medicine; Visit Provider Radiology Diagnostic Radiology | DX: I70.203 Unspecified atherosclerosis of native arteries of extremities, bilateral legs (principal) | CPT/HCPCS: 93925 ==

== ENCOUNTER 2024-10-13 08:50 | Outpatient (REF) | payer MEDICAID, SELFPAY ==
--- OUTSIDE RECORDS SUMMARY | 2024-10-13 09:11 | XMS_ITS | Clinical Summary ---
Author Organization [employer] Address [address] [facility] [address] [place] [address] Care Team Providers Care Machine Iii Coremaker Name Role Phone Elizabeth Espinal DO Primary Care Provider [phone] Allergies No known active allergies Medications losartan [...] Encounters Date Type Department Care Team Description 10/09/2024 Telephone [facility] [address] [place] [phone] Elizabeth Espinal DO telephone call 09/03/2024 9:20 AM EDT Office Visit [facility] [address] [place] [phone] Elizabeth Espinal DO Hypertensive emergency (Primary Dx); Bilateral leg pain 09/03/2024 Orders Only GENERIC EXTERNAL DATA DEPARTMENT Provider, Generic External Data 09/03/2024 Telephone [facility] [address] [place] [phone] 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, 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 [facility] 08/19/2024 Population Health Risk Score [facility] ([facility]) Department [address] [place] [phone] Provider, Population Health Generic from Last [...] Procedure Name Priority Date/Time Associated Diagnosis Comments VASC US LOWER EXTREMITY ARTERIAL DUPLEX BILATERAL Routine 10/07/2024 2:22 PM EDT Hypertensive emergency Bilateral leg pain ECG 12-LEAD Routine 09/03/2024 3:35 PM EDT [...] EDT from Last 3 Months Results * Vascular US lower extremity arterial duplex bilateral (10/07/2024 2:22 PM EDT) 10/07/2024 2:22 PM EDT Narrative [facility] - 10/07/2024 3:13 PM EDT ? [facility] ?[address] ?[place] [address] ? Ultrasound Report ? Signed ? Patient: Michael Yadav ?MR# ?? : [id number] ? : 1960 ?Acct:[id number] ? Age/Sex: 64 / M ?ADM Date: 10/07/24 ? Loc: HO.US ? Attending Dr: Elizabeth Espinal DO ? Ordering Physician: Elizabeth Espinal DO ?? Date of Service: 10/07/24 ?? Procedure(s): US arterial duplex LE BI ?? Accession Number(s): [id number] ? cc: Elizabeth Espinal DO ? EXAMINATION: ?? COLOR-FLOW DUPLEX IMAGING OF THE BILATERAL LOWER EXTREMITY ARTERIAL ?? SYSTEM. ? CLINICAL INFORMATION: ?? Bilateral lower extremity pain, worse with ambulation. ? FINDINGS: ?? Atheromatous Plaque: ?? Mild bilateral scattered atheromatous plaque. ? RIGHT FEMORAL RUNOFF VELOCITIES: ? The right common femoral artery measures 146 cm/s and triphasic. (Mild ?? stenosis by velocity criteria) ?? The right profunda femoral artery is 86 cm/s and is triphasic. ?? The right proximal superficial femoral artery measures 104 cm/s and ?? triphasic. ?? The right mid superficial femoral artery is 83 cm/s and triphasic. ?? The right distal right superficial femoral artery measures 73 cm/s and ?? is triphasic. ?? The right popliteal velocity measures 51 cm/s and is triphasic. ?? The right posterior tibial artery velocity measures 48 cm/s and is ?? biphasic. ?? The right peroneal artery velocity measures 38 cm/s and is biphasic. ?? The right anterior tibial artery measures 42 cm/s and is biphasic. ?? There is reversal of flow within the right DPA. ? LEFT FEMORAL RUNOFF VELOCITIES: ? The left common femoral artery measures 110 cm/s and triphasic. ?? The left profunda femoral artery is 78 cm/s and is triphasic. ?? The left proximal superficial femoral artery measures 76 cm/s and ?? biphasic. ?? The left mid superficial femoral artery is 75 cm/s and biphasic. ?? The left distal right superficial femoral artery measures 62 cm/s and ?? is triphasic. ?? The left popliteal velocity measures 53 cm/s and is triphasic. ?? The left posterior tibial artery velocity measures 53 cm/s and is ?? triphasic. ?? The left anterior tibial artery measures 41 cm/s and is biphasic. ?? There is reversal of flow within the left DPA. ? US/US arterial duplex LE BI ?? IMPRESSION: ?? 1. Scattered mild calcified atherosclerotic disease is present. ?? 2. Biphasic waveforms in the RIGHT posterior tibial artery, right ?? peroneal artery, and right anterior tibial artery. ?? 3. Biphasic waveforms in the LEFT proximal and mid superficial femoral ?? arteries, and the left anterior tibial artery. ?? 4. Reversal of flow in both dorsalis pedis arteries, indicating ?? probable underlying peripheral artery disease. ? Electronically signed by: ??Mian Vallejo MD ??10/07/2024 03:10 PM EDT RP ? Dictated By: ?Mian Vallejo MD ? Signed By: ?<Electronically signed by Mian Vallejo MD in OV> ?10/07/24 1510 ? DD/ 1422 ? TD/TT: 10/07/24 1436 ? Supervisory Examiner: ? Procedure Note Clayton Roland - 10/07/[address] [address] Ultrasound Report Signed Patient: Kat Yadav# : [id number] : 1Acct:[id number] Age/Sex: 64 / MADM Date: 10/07/24 Loc: HO.US Attending : Elizabeth Espinal DO Ordering Physician: Elizabeth Espinal DO Date of Service: 10/07/24 Procedure(s): US arterial duplex LE BI Accession Number(s): [id number] cc: Elizabeth Espinal DO EXAMINATION: COLOR-FLOW DUPLEX IMAGING OF THE BILATERAL LOWER EXTREMITY ARTERIAL SYSTEM. CLINICAL INFORMATION: Bilateral lower extremity pain, worse with ambulation. FINDINGS: Atheromatous Plaque: Mild bilateral scattered atheromatous plaque. RIGHT FEMORAL RUNOFF VELOCITIES: The right common femoral artery measures 146 cm/s and triphasic. (Mild stenosis by velocity criteria) The right profunda femoral artery is 86 cm/s and is triphasic. The right proximal superficial femoral artery measures 104 cm/s and triphasic. The right mid superficial femoral artery is 83 cm/s and triphasic. The right distal right superficial femoral artery measures 73 cm/s and is triphasic. The right popliteal velocity measures 51 cm/s and is triphasic. The right posterior tibial artery velocity measures 48 cm/s and is biphasic. The right peroneal artery velocity measures 38 cm/s and is biphasic. The right anterior tibial artery measures 42 cm/s and is biphasic. There is reversal of flow within the right DPA. LEFT FEMORAL RUNOFF VELOCITIES: The left common femoral artery measures 110 cm/s and triphasic. The left profunda femoral artery is 78 cm/s and is triphasic. The left proximal superficial femoral artery measures 76 cm/s and biphasic. The left mid superficial femoral artery is 75 cm/s and biphasic. The left distal right superficial femoral artery measures 62 cm/s and is triphasic. The left popliteal velocity measures 53 cm/s and is triphasic. The left posterior tibial artery velocity measures 53 cm/s and is triphasic. The left anterior tibial artery measures 41 cm/s and is biphasic. There is reversal of flow within the left DPA. US/US arterial duplex LE BI IMPRESSION: 1. Scattered mild calcified atherosclerotic disease is present. 2. Biphasic waveforms in the RIGHT posterior tibial artery, right peroneal artery, and right anterior tibial artery. 3. Biphasic waveforms in the LEFT proximal and mid superficial femoral arteries, and the left anterior tibial artery. 4. Reversal of flow in both dorsalis pedis arteries, indicating probable underlying peripheral artery disease. Electronically signed by: Mian Vallejo MD 10/07/2024 03:10 PM EDT Dictated By: Mian Vallejo MD Signed By: <Electronically signed by Mian Vallejo MD in OV> 10/07/24 1510 DD/ 1422 TD/TT: 10/07/24 1436 Supervisory Examiner: us Elizabeth Espinal DO CV VASCULAR PROCEDURES Final Result [facility] [address] [place] [address] * ECG 12 lead (09/03/2024 3:35 PM [...] EDT Narrative 09/03/2024 1:36 PM EDT ? [facility] ?[address] ?[place] [address] ?XRay Report ? Signed ? Patient: Timo Mittal,Michael ?MR# ?? : [id number] ? : 1960 ?Acct:[id number] ? Age/Sex: 63 / M ?ADM Date: 04/17/25 ? Loc: HO.ED ? Attending Dr: ? Ordering Physician: Alonso Mason MD ?? Date of Service: 09/03/24 ?? Procedure(s): XR lumbar spine 2-3V ?? Accession Number(s): [id number] ? cc: Alonso Mason MD; [facility] ? EXAMINATION: ??XR LUMBAR SPINE 2-3 VIEWS [...] ??Reynaldo Llanos MD ??09/03/2024 01:33 PM EDT ? Dictated By: ?Reynaldo Llanos MD ? Signed By: ?<Electronically signed by Reynaldo Llanos MD in OV> ?09/03/24 1333 ? DD/ 1320 ? TD/TT: 09/03/24 1329 ? Supervisory Examiner: ? Procedure Note Asuncion, Image - 09/03/2024 [place] [address] XRay Report Signed Patient: Kat Yadav# : [id number] : 1Acct:[id number] Age/Sex: 63 / MADM Date: 09/03/24 Loc: HO.ED Attending Dr: Ordering Physician: Alonso Mason MD Date of Service: 09/03/24 Procedure(s): XR lumbar spine 2-3V Accession Number(s): [id number] cc: Alonso Mason MD; [facility] EXAMINATION: XR LUMBAR SPINE 2-3 VIEWS HISTORY: [...] Reynaldo Llanos MD 09/03/2024 01:33 PM EDT RP Dictated By: Reynaldo Llanos MD Signed By: <Electronically signed by Reynaldo Llanos MD in OV> 09/03/24 1333 DD/ 1320 TD/TT: 09/03/24 1329 Supervisory Examiner: [facility] External Provider IMG XR PROCEDURES Final Result * XR Sacroiliac Joints 3+ Views (09/03/2024 1:11 PM EDT) Anatomical Region Laterality Modality Sacroiliac joint, Pelvis Radiogr aphic Imaging 09/03/2024 1:11 PM EDT Narrative 09/03/2024 1:37 PM EDT ? [facility] ?[address] ?[place] [address] ?XRay Report ? Signed ? Patient: Timo Michael Mittal ?MR# ?? : [id number] ? : 1960 ?Acct:[id number] ? Age/Sex: 63 / M ?ADM Date: 09/03/24 ? Loc: HO.ED ? Attending Dr: ? Ordering Physician: Alonso Mason MD ?? Date of Service: 09/03/24 ?? Procedure(s): XR sacroiliac joint min 3V ?? Accession Number(s): [id number] ? cc: Alonso Mason MD; [facility] ? EXAMINATION: ??XR SACROILIAC JOINT 3 OR [...] DD/ 1311 ? TD/TT: 09/03/24 1329 ? Supervisory Examiner: ? Procedure Note Donviniciuster, Image - 09/03/[address] [address] XRay Report Signed Patient: Brody YadavR# : [id number] : 1960cct:[id number] Age/Sex: 63 / MADM Date: 09/03/24 Loc: HO.ED Attending Dr: Ordering Physician: Alonso Mason MD Date of Service: 09/03/24 Procedure(s): XR sacroiliac joint min 3V Accession Number(s): [id number] cc: Alonso Mason MD; [facility] EXAMINATION: XR SACROILIAC JOINT 3 OR MORE VIEWS HISTORY: Right joint pain. COMPARISON: There are no prior studies for comparison. FINDINGS: Four views of the bilateral sacroiliac joints are submitted. The joint spaces are preserved. No erosions are seen. XR/XR sacroiliac joint min 3V IMPRESSION: Unremarkable examination of the bilateral sacroiliac joints. Electronically signed by: Reynaldo Llanos MD 09/03/2024 01:34 PM EDT Dictated By: Reynaldo Llanos MD Signed By: <Electronically signed by Reynaldo Llanos MD in OV> 09/03/24 1334 DD/ 1311 TD/TT: 09/03/24 1329 Supervisory Examiner: [facility] External Provider IMG XR PROCEDURES Final Result * High Sensitivity Troponin I (09/03/2024 12:03 PM EDT) TROPONIN I HIGH SENSITIVITY 8.9 <3.5 - 35.0 ng/L [facility] Comment:The Humphreys high sens itivity Troponin-I results should beused in conjunction with other diagnostic information suchas ECG, clinical observations and information, and patientsymptoms to aid in the diagnosis of [place]. 09/03/2024 12:0 3 PM EDT 09/03/2024 12:06 PM EDT us Generic External Data Provider LAB BLOOD ORDERAB LES Final Result Performing Organization Address [facility] Co de Phone Number [facility] [address] [place] [phone] * (ABNORMAL) Urinalysis, Complete, with Reflex to Culture (09/03/2024 12:03 PM EDT) Color Urine Yellow [facility] Appearance Urine Clear [facility] PH 6.0 5.0 - 9.0 [facility] Glucose Urine UA Negative Negative mg/dL [facility] Urine Blood Negative Negative [facility] Specific [place] - Urine 1.015 1.005 - 1.025 [facility] Urine Protein 30 (1+)(A) Neg-Trace mg/dL [facility] Urine Ketones Negative Negative mg/dL [facility] Nitrite Urine Negative Negative [facility] Leukocyte Esterase Urine Negative Negative [facility] RBC Urine 0-2 0 - 2 /HPF [facility] Urine WBC 0-5 0 - 5 /HPF [facility] Urine Squamous Epithelial Cell 0-2 0 - 2 /HPF [facility] Urine Bacteria None Seen None Seen [facility] Hyaline Casts, Urine 0-2 0 - 2 /LPF [facility] 09/03/2024 12:0 3 PM EDT 09/03/2024 12:06 PM EDT Narrative [facility] - 09/03/2024 12:16 PM EDT [id number], Clean Catch us Generic External Data Provider LAB URINE ORDERAB LES Final Result Performing Organization Address City/[facility] Co de Phone Number [facility] [address] [place] [phone] * (ABNORMAL) CBC auto differential (09/03/2024 12:03 PM EDT) White Blood Count 6.6 4.8 - 10.8 X10*3/uL [facility] Red Blood Count 4.73 4.60 - 5.80 X10*6/uL [facility] Hemoglobin 13.5(L) 14.0 - 18.0 g/dl [facility] Hematocrit 38.9(L) 42.0 - 52.0 % [facility] Mean Corpuscular Volume 82.2 80.0 - 98.0 fL [facility] Mean Corpuscular Hemoglobin 28.5 27.0 - 33.0 pg [facility] Mean Corpuscular HGB Conc 34.7 31.0 - 36.0 g/dl [facility] Red Cell Distribution Width 12.2 11.0 - 16.0 % [facility] Platelet Count 254 160 - 400 X10*3/uL [facility] Mean Platelet Volume 10.3 9.4 - 12.4 fL [facility] Neutrophils Percent Auto 63.7 45 - 73 % [facility] Imm Gran Pct Auto 0.3 0.0 - 0.4 % [facility] Lymphocytes Percent Auto 27.1 20 - 40 % [facility] Monocytes Percent Auto 7.2 2 - 11 % [facility] Eosinophils Percent Auto 0.9 0 - 4 % [facility] Basophils Percent Auto 0.8 0 - 2 % [facility] NRBC Pct Auto 0.0 0.0 - 0.2 /100WBC [facility] Neutrophils Absolute Auto 4.2 2.0 - 8.3 x10*3/uL [facility] Imm Gran Abs Auto 0.02 0.00 - 0.03 X10*3/uL [facility] Lymphocytes Absolute Auto 1.8 1.2 - 4.9 X10*3/uL [facility] Monocytes Absolute Auto 0.5 0.1 - 1.2 X10*3/uL [facility] Eosinophils Absolute Auto 0.1 0.0 - 0.4 X10*3/uL [facility] Basophils Absolute Auto 0.1 0.0 - 0.2 X10*3/uL [facility] NRBC Abs Auto 0.000 0.0 - 0.012 X10*3/uL [facility] 09/03/2024 12:0 3 PM EDT 09/03/2024 12:06 PM EDT Generic External Data Provider LAB BLOOD ORDERAB LES Final Result Performing Organization Address City/[facility]/ZIP Co de Phone Number [facility] [address] [place] [phone] * Lipase (09/03/2024 12:03 PM EDT) Lipase 20 8 - 78 U/L [facility] 09/03/2024 12:0 3 PM EDT 09/03/2024 12:06 PM EDT Generic External Data Provider LAB BLOOD ORDERAB LES Final Result Performing Organization Address [facility]/ZIP Co de Phone Number [facility] [address] [place] [phone] * Hepatic Function Panel (09/03/2024 12:03 PM EDT) Bilirubin, Total 0.6 0.0 - 1.0 mg/dL [facility] Bilirubin, Direct 0.2 0.0 - 0.5 mg/dL [facility] Aspartate Amino Transferase 32 5 - 37 U/L [facility] Alanine Aminotransferase 22 0 - 40 U/L [facility] Total Protein 7.6 6.5 - 8.0 g/dL [facility] Albumin Level 4.1 3.5 - 5.0 g/dL [facility] Alkaline Phosphatase 70 39 - 117 U/L [facility] 09/03/2024 12:0 3 PM EDT 09/03/2024 12:06 PM EDT us Generic External Data Provider LAB BLOOD ORDERAB LES Final Result Performing Organization Address City/[facility]/ZIP Co de Phone Number [facility] [address] [place] [phone] * Basic Metabolic Panel (09/03/2024 12:03 PM EDT) Sodium 142 135 - 145 mmol/L [facility] Potassium 3.5 3.3 - 5.1 mmol/L [facility] Chloride 103 96 - 108 mmol/L [facility] Carbon Dioxide 28 22 - 29 mmol/L [facility] Anion Gap 15 12 - 20 [facility] Urea Nitrogen (BUN) 11 9 - 16 mg/dL [facility] Creatinine, Serum 0.85 0.5 - 1.4 mg/dL [facility] Creatinine Clr Calc Pharmacy 77.3 [facility] Comment:eGFR (calculated fro m the MDRD study equation) and eCrCl(calculated from the Cockcroft-Gault equation) are based ondifferent parameters and may not yield comparable results.If eCrCl result is absurd, please check patient'sheight/weight. Estimated Glomerular Filt Rate >60 [facility] Comment:Chronic Kidney Disea se: Estimated GFR < 60 mL/min/1.23x1Kaupyw Kidney Disease: Estimated GFR < 15 mL/min/1.73m2 Glucose 95 60 - 115 mg/dL [facility] Calcium 9.0 8.4 - 10.2 mg/dL [facility] 09/03/2024 12:0 3 PM EDT 09/03/2024 12:06 PM EDT us Generic External Data Provider LAB BLOOD ORDERAB LES Final Result Performing Organization Address City/[facility]/ZIP Co de Phone Number [facility] [address] [place] [phone] * XR Chest 1 View (09/03/2024 11:28 AM EDT) Anatomical Region Laterality Modality Chest Radiographic Maria C ging 09/03/2024 11:2 8 AM EDT Narrative 09/03/2024 11:50 AM EDT ? [facility] ?[address] ?[place] [address] ?XRay Report ? Signed ? Patient: Michael Yadav ?MR# ?? : [id number] ? : 1960 ?Acct:[id number] ? Age/Sex: 63 / M ?ADM Date: 09/03/24 ? Loc: HO.ED ? Attending Dr: ? Ordering Physician: Alonso Mason MD ?? Date of Service: 09/03/24 ?? Procedure(s): XR chest 1V ?? Accession Number(s): [id number] ? cc: Alonso Mason MD; [facility] ? EXAMINATION: ?? XR CHEST ? CLINICAL [...] DD/ 1128 ? TD/TT: 09/03/24 1141 ? Supervisory Examiner: ? Procedure Note Clayton Roland - 09/04/[address] [address] XRay Report Signed Patient: Kat Yadav# : [id number] : 1Acct:[id number] Age/Sex: 63 / MADM Date: 09/03/24 Loc: HO.ED Attending Dr: Ordering Physician: Alonso Mason MD Date of Service: 09/03/24 Procedure(s): XR chest 1V Accession Number(s): [id number] cc: Alonso Mason MD; [facility] EXAMINATION: XR CHEST CLINICAL INFORMATION: New onset hypertension COMPARISON: None available. TECHNIQUE: Frontal view of the chest was obtained. FINDINGS: No consolidation, pleural effusion or pneumothorax. Cardiomediastinal silhouette size is normal. Calcified plaque thoracic arch. Multilevel thoracic spondylosis. XR/XR chest 1V IMPRESSION: No acute airspace disease. No cardiomegaly. Electronically signed by: Niels Juan MD 09/03/2024 11:47 AM EDT RP Dictated By: Niels Ohara MD Signed By: <Electronically signed by Niels Guidry MDin OV> 09/03/24 1147 DD/ 1128 TD/TT: 09/03/24 1141 Supervisory Examiner: [facility] External Provider IMG XR PROCEDURES Final Result from Last 3 Months Insurance [facility] Care Teams Machine Iii Coremaker Relationship Specialty Start Date End Date Elizabeth Espinal DO [address] [place] [phone] PCP - General Family Medicine 09/03/24
[2024-10-13 10:20] LABS: Hematocrit 39.4 % (42.0-52.0); Hemoglobin 13.7 g/dl (14.0-18.0); Mean Corpuscular HGB Conc 34.8 g/dl (31.0-36.0); Mean Corpuscular Hemoglobin 28.2 pg (27.0-33.0); Mean Corpuscular Volume 81.2 fL (80.0-98.0); Mean Platelet Volume 10.9 fL (9.4-12.4); NRBC Pct Auto 0.3 /100WBC (0.0-0.2); Platelet Count 329 X10*3/uL (160-400); Red Blood Count 4.85 X10*6/uL (4.60-5.80); Red Cell Distribution Width 12.7 % (11.0-16.0)
[2024-10-13 10:22] LABS: Estimated Average Glucose 103 mg/dL; Hemoglobin A1c % 5.2 % (<6.0); Total Hemoglobin (HGBA1C) 3615.5006 umol/L
[2024-10-13 11:10] LABS: Hepatitis A Antibody IgG REACTIVE (Nonreactive); ~Hepatitis A Antibody IgG 9.47 S/CO (0.00-0.99)
[2024-10-13 11:15] LABS: Alanine Aminotransferase 41 U/L (0-40); Albumin Level 4.6 g/dL (3.5-5.0); Alkaline Phosphatase 74 U/L (39-117); Anion Gap 16 (12-20); Aspartate Amino Transferase 34 U/L (5-37); Bilirubin Direct 0.1 mg/dL (0.0-0.5); Bilirubin Total 0.7 mg/dL (0.0-1.0); Blood Urea Nitrogen 13 mg/dL (9-16); Calcium 9.3 mg/dL (8.4-10.2); Carbon Dioxide 25 mmol/L (22-29); Chloride 103 mmol/L (96-108); Cholesterol 247 mg/dL (<200); Estimated Glomerular Filt Rate > 60; Free T4 (Free Thyroxine) 0.74 ng/dL (0.71-1.85); Glucose Random 100 mg/dL (60-115); HDL Cholesterol 46 mg/dL (>40); Potassium 3.9 mmol/L (3.3-5.1); Sodium 140 mmol/L (135-145); Thyroid Stimulating Hormone 6.17 uIU/mL (0.32-4.0); Total Protein 8.3 g/dL (6.5-8.0); Triglycerides 661 mg/dL (<150); Vitamin D 25-OH Total 16.6 ng/mL (>30)
[2024-10-13 11:20] LABS: HBS Num1 0.21 mIU/mL (0-7.99); HBc Num1 0.06 S/CO (0.00-0.79); HBsAGNum1 0.34 S/CO (0.00-0.99); HIV AB/AG Nonreactive (Nonreactive); HIV Num 1 0.07 S/CO (0.00-0.99); Hepatitis B Core Antibody Nonreactive (Nonreactive); Hepatitis B Surface Antigen Negative (Negative); ~HepC Num1 0.17 S/CO (0.00-0.79); ~Hepatitis B Surface Antibody NONREACTIVE (Nonreactive); ~Hepatitis C Antibody Nonreactive (Nonreactive)
[2024-10-13 11:22] LABS: Folate 12.2 ng/mL (> or = 4.0); Vitamin B12 217 pg/mL (200-900)
[2024-10-13 18:15] LABS: Creatinine Urine 200.14 mg/dL; Microalbum/Creatinine Ratio Ur 21.4 ug/mg cr (<30)
[2024-10-14 04:56] LABS: Varicella IgG Antibody 9.01 S/CO
[2024-10-14 13:32] LABS: CT PCR NOT DETECTED (Not Detect.); NG PCR NOT DETECTED (Not Detect.)
[2024-10-16 00:34] LABS: TS Negative Control Passed; TS Panel A 0; TS Panel B 1; TS Positive Control Passed; TSpotTB Negative (Negative)
[2024-10-16 09:18] LABS: RPR Rapid Plasma Reagin NON-REACTIVE (NON-REACTIVE)
== END 2024-10-13 08:51 | disposition home or self-care (01) ==
LOC: HO.LAB 08:50
PROVIDERS: PCP Family Medicine; Visit Provider Family Medicine
DX: I16.1 Hypertensive emergency (principal); M79.604 Pain in right leg; M79.605 Pain in left leg
CPT/HCPCS: 36415; 80048; 80061; 80076; 82043; 82306; 82570; 82607; 82746; 83036; 84439; 84443; 85027; 86481; 86592; 86704; 86706; 86708; 86735; 86762; 86765; 86787; 86803; 87340; 87389; 87491; 87591

== ENCOUNTER 2024-10-29 11:59 | Outpatient (REF) | payer MEDICAID, SELFPAY ==
--- NOTE | ~2024-10-29 | XR_ITS ---
EXAMINATION: XR KNEE, RIGHT CLINICAL INFORMATION: worsening right knee pain COMPARISON: None available. TECHNIQUE: Four views of the right knee. FINDINGS: Joint spaces are preserved. There is no joint effusion. Small marginal osteophyte is present along the medial joint line and medial patella there are possible central osteophytes involving median ridge of patella.. XR/XR knee RT 4V IMPRESSION: Mild osteoarthritis with preserved joint spaces. Electronically signed by: Shabbir Juárez MD 10/29/2024 02:15 PM EDT
--- NOTE | ~2024-10-29 | XR_ITS ---
EXAMINATION: XR LUMBOSACRAL SPINE CLINICAL INFORMATION: LBP and B/L LE pain COMPARISON: September 03, 2024. TECHNIQUE: Three views of the lumbosacral spine. FINDINGS: Marginal osteophyte formation and endplate sclerosis throughout the axial skeleton. Percent volume loss of the vertebral bodies is axial skeleton. No acute cortical disruption or gross malalignment. No lytic or blastic lesions. Vascular desiccation's, aorta. XR/XR lumbar spine 2-3V IMPRESSION: Multilevel thoracolumbar spondylosis without acute fracture or gross listhesis. Electronically signed by: Niels Juan MD 10/29/2024 02:26 PM EDT
== END 2024-10-29 12:00 | disposition home or self-care (01) ==
LOC: HO.HHCX 11:59
PROVIDERS: Visit Provider Family Medicine
DX: M25.561 Pain in right knee (principal); G89.29 Other chronic pain; M79.604 Pain in right leg; M79.605 Pain in left leg; M54.41 Lumbago with sciatica, right side
CPT/HCPCS: 72100; 73564

== ENCOUNTER → 2024-10-29 12:00 | Outpatient (BNV) | payer MEDICAID, SELFPAY | PROVIDERS: Visit Provider Radiology Diagnostic Radiology | DX: M25.761 Osteophyte, right knee (principal); M47.895 Other spondylosis, thoracolumbar region | CPT/HCPCS: 72100; 73564 ==

== ENCOUNTER 2024-10-30 20:32 | Emergency (ER) | payer MEDICAID, SELFPAY ==
[2024-10-30 20:43] VITALS: BP 133/85; PULSE 123; O2SAT 96
--- NOTE | 2024-10-30 20:46 | ECG_ITS ---
Test Reason : CP Blood Pressure : */* mmHG Vent. Rate : 110 BPM Atrial Rate : 110 BPM P-R Int : 172 ms QRS Dur : 86 ms QT Int : 330 ms P-R-T Axes : 45 43 17 degrees QTcB Int : 446 ms Sinus tachycardia Cannot rule out Anterior infarct , age undetermined Abnormal ECG When compared with ECG of 03-Sep-2024 12:23, No significant change was found Referred By: Generic ED Physician Electronically Signed By: SHERINE CONTRERAS MD
[2024-10-30 20:51] VITALS: BP 140/87; PULSE 114; RESP 20; TEMP 37.1; O2SAT 100; BMI 28.8
[2024-10-30 21:05] VITALS: PULSE 78
[2024-10-30 21:18] LABS: MANUAL DIFF FLAG NO
[2024-10-30 21:21] LABS: Basophils Absolute Auto 0.1 X10*3/uL (0.0-0.2); Basophils Percent Auto 0.6 % (0-2); Eosinophils Absolute Auto 0.2 X10*3/uL (0.0-0.4); Eosinophils Percent Auto 2.4 % (0-4); Hematocrit 29.4 % (42.0-52.0); Hemoglobin 10.8 g/dl (14.0-18.0); Imm Gran Abs Auto 0.05 X10*3/uL (0.00-0.03); Imm Gran Pct Auto 0.5 % (0.0-0.4); Lymphocytes Absolute Auto 3.3 X10*3/uL (1.2-4.9); Lymphocytes Percent Auto 34.1 % (20-40); Mean Corpuscular HGB Conc 36.7 g/dl (31.0-36.0); Mean Corpuscular Hemoglobin 29.1 pg (27.0-33.0); Mean Corpuscular Volume 79.2 fL (80.0-98.0); Mean Platelet Volume 9.9 fL (9.4-12.4); Monocytes Absolute Auto 0.7 X10*3/uL (0.1-1.2); Monocytes Percent Auto 7.1 % (2-11); Neutrophils Absolute Auto 5.3 x10*3/uL (2.0-8.3); Neutrophils Percent Auto 55.3 % (45-73); Platelet Count 255 X10*3/uL (160-400); Red Blood Count 3.71 X10*6/uL (4.60-5.80); Red Cell Distribution Width 12.6 % (11.0-16.0); White Blood Count 9.6 X10*3/uL (4.8-10.8)
[2024-10-30 21:40] LABS: Alanine Aminotransferase 33 U/L (0-40); Albumin Level 4.3 g/dL (3.5-5.0); Alkaline Phosphatase 70 U/L (39-117); Anion Gap 14 (12-20); Aspartate Amino Transferase 38 U/L (5-37); Bilirubin Total 0.4 mg/dL (0.0-1.0); Blood Urea Nitrogen 19 mg/dL (9-16); Carbon Dioxide 21 mmol/L (22-29); Chloride 107 mmol/L (96-108); Creatinine Clr Calc Pharmacy 65.8; Estimated Glomerular Filt Rate > 60; Glucose Random 131 mg/dL (60-115); Magnesium 1.2 mg/dL (1.6-2.6); Potassium 3.4 mmol/L (3.3-5.1); Sodium 139 mmol/L (135-145); Total Protein 7.1 g/dL (6.5-8.0)
[2024-10-30 21:45] LABS: Troponin-I High Sensitivity 4.8 ng/L (<3.5-35.0)
[2024-10-31 03:57] VITALS: BP 132/92; PULSE 92; RESP 18; TEMP 37.2; O2SAT 100
[2024-10-31 04:42] VITALS: BP 133/94; PULSE 103; RESP 22; TEMP 37.1; O2SAT 96
[2024-10-31 04:47] LABS: OBS Int Ctl Valid YES
[2024-10-31 04:48] LABS: OBS1 NEGATIVE (NEGATIVE)
--- NOTE | 2024-10-31 04:55 | ED.CHESTPAIN ---
HPI - Chest Pain General Chief Complaint: Chest Pain Stated Complaint: chest pain Time Seen by Provider: 10/31/24 04:01 Source: patient Mode of arrival: ambulatory Limitations: no limitations History of Present Illness ED Provider: Dr. Blaire Bellamy HPI narrative: patient comes to the emergency room complaining of right-sided leg pain. Patient states that whenever he moves his neck a certain way, he has shooting pain running down his right leg. Patient denies any trauma. Patient states it has been going on for couple of weeks. Initially when patient came in he said that he had diffuse chest pain. Patient states that he has no chest pain, but sometimes the leg pain is so intense that his chest hurts for a few sec and then goes away. Patient states that sometimes the shooting pain is so bad that he can not get up and walk. Pain is triggered by certain movements. Denies any urinary/fecal incontinence /retention, denies any symptoms that would indicate saddle anesthesia. Patient denies any chest pain. Patient states that sometimes he feels a bit short of breath when he goes up the stairs Related Data Previous Rx's ?Medication ?Instructions ?Recorded amlodipine 5 mg tablet 5 mg PO DAILY #30 tabs 09/03/24 ibuprofen 800 mg tablet 800 mg PO Q8H PRN pain #14 tabs 09/03/24 ferrous gluconate 240 mg (27 mg 240 mg PO DAILY #60 tabs 10/31/24 iron) tablet magnesium oxide 400 mg (241.3 mg 400 mg PO DAILY #30 tabs 10/31/24 magnesium) tablet polyethylene glycol 3350 17 gram 17 g PO DAILY PRN laxative effect 10/31/24 oral powder packet (Miralax) #30 ea tramadol 50 mg tablet 50 mg PO BID PRN pain #7 tabs 10/31/24 Allergies Allergy/AdvReac Type Severity Reaction Status Date / Time No Known Allergies Allergy Verified 10/30/24 20:53 Review of Systems Review of Systems: Constitutional : No Weight loss, No Fever, No Chills, No Night Sweats, No Fatigue, No Malaise ENT/Mouth : No Hearing loss, No Ear Pain, No Nasal Congestion, No Sinus Pain, No Hoarseness, No sore throat, No Rhinorrhea, No Swallowing Difficulty Eyes: No Eye Pain, No Swelling, No Redness, No Foreign Body, No Discharge, No Vision Changes Cardiovascular : No Chest Pain, no orthopnea, no edema no palpitations, complaining of mild shortness of breath with exertion, specifically going up the stairs. Respiratory : No Cough, No Sputum, No Wheezing, No Smoke Exposure, No Dyspnea Gastrointestinal : No Nausea, No Vomiting, No Diarrhea, No Constipation, No abdominal Pain, No Hematochezia, No Melena Genitourinary : no irregular bleeding, No Dysuria, No Urinary Frequency, No Hematuria, No Urinary Incontinence, No Urgency, No Flank Pain, No Urinary Flow Changes, No Hesitancy Musculoskeletal : Patient complaining of shooting pain from the lower back down his right leg. Denies any injury. No joint pain, No Myalgias, No Joint Swelling Skin : No Skin Lesions, No rash Neuro : No Weakness, No Numbness, No Paresthesias, No Loss of Consciousness, No Dizziness, No Headache Psych : No Anxiety/Panic, No Depression, No SI/HI/AH/VH, No Social Issues, Heme/Lymph: No Bruising, No Bleeding,No Lymphadenopathy Endocrine : No Polyuria, No Polydipsia, No Temperature Intolerance [facility] Social History Social History Unable to assess alcohol history related to: Unknown Advance Directives: No Advance Directives Information Provided: No Physical Exam Vital Signs: Vital Signs: Last Vital Signs Temp 98.7 F 10/31/24 04:42 Pulse 103 H 10/31/24 04:42 Resp 22 H 10/31/24 04:42 BP 133/94 H 10/31/24 04:42 Pulse Ox 96 10/31/24 04:42 O2 Del Method Room Air 10/31/24 04:42 BMI result Body Mass Index 28.8 Const: Other: Appearance: Alert. Oriented X3. No acute distress. Eyes: Pupils equal, round and reactive to light. ENT: Pharynx normal. Neck: Normal inspection. Neck supple. No lymph nodes noted. No crepitus CVS: Normal heart rate and rhythm. Pulses normal. Normal S1 and S2 Respiratory: No respiratory distress. Breath sounds normal. No Wheezing. No rales Abdomen: Soft and nontender. No rigidity. No distention. Digital rectal exam is negative for occult blood Skin: Skin warm and dry. Normal skin color. Normal skin turgor. back: No pain to palpation over the thoracic or lumbar spine. Patient has a positive straight leg raise test on the right. Extremities: No lower extremity edema. No Lacerations. No Rash Neuro: Oriented X 3. No motor deficit. No sensory deficit. Moving all extremities. No slurred speech. CN 2 through 12 grossly intact Psych: calm, cooperative, normal affect Course Course Course Narrative: patient came in complaining of shooting pain down his right leg. initially when he arrived, patient's said something about chest pain, therefore, the triage nurse ordered a cardiac workup. Medical Decision Making Medical Decision Making [facility] Narrative: Patient's cardiac workup is negative. Denies any chest pain or shortness of breath. Patient states that he only has shortness of breath when he goes up the stairs. No chest pain or shortness of breath at this time. He was noted patient's hemoglobin dropped from 13.7-10.8 in about a month. Patient denies any rectal bleeding, denies being on blood thinners, denies black stool. An occult blood test was done, it is guaiac negative. Patient instructed to follow-up with his primary care physician. Also it was noted that patient's MCV is a bit on the lower side. Likely iron deficiency anemia. Patient's magnesium is 1.2, patient was repleted with magnesium oxide p.o. I discussed the physical exam with the patient, patient had a positive straight leg raise test on the right side, patient likely has sciatica versus a herniated disc. Patient was given a dose of IM Decadron and morphine for the pain. After patient was given IM medication for pain including morphine and Decadron, patient feeling better. Discussed with the patient that he may need a referral from his primary care physician, as patient may need physical therapy and/or an MRI. Differential Diagnosis Differential Diagnoses: The differential diagnosis associated with the presentation includes ( Sciatica versus herniated disc) Admission/Observation Consideration of admission/observation: Escalation of care including admission/observation considered ( given patient's labs in history, observation was considered.) Lab Data [facility] Lab Attestation statement: I reviewed the patient's lab results. 10/30/24 21:13 10/30/24 21:13 Labs: Lab Results 10/30/24 10/31/24 Range/Units 21:13 04:40 WBC 9.6 (4.8-10.8) X10*3/uL RBC 3.71 L D (4.60-5.80) X10*6/uL Hgb 10.8 L D (14.0-18.0) g/dl Hct 29.4 L D (42.0-52.0) % MCV 79.2 L (80.0-98.0) fL MCH 29.1 (27.0-33.0) pg MCHC 36.7 H (31.0-36.0) g/dl RDW 12.6 (11.0-16.0) % Plt Count 255 (160-400) X10*3/uL MPV 9.9 (9.4-12.4) fL Immature Gran % (Auto) 0.5 H (0.0-0.4) % Neut % (Auto) 55.3 (45-73) % Lymph % (Auto) 34.1 (20-40) % [place] % (Auto) 7.1 (2-11) % Eos % (Auto) 2.4 (0-4) % Baso % (Auto) 0.6 (0-2) % Lymph # (Auto) 3.3 (1.2-4.9) X10*3/uL [place] # (Auto) 0.7 (0.1-1.2) X10*3/uL Eos # (Auto) 0.2 (0.0-0.4) X10*3/uL Baso # (Auto) 0.1 (0.0-0.2) X10*3/uL Abs Immat Gran (auto) 0.05 H (0.00-0.03) X10*3/uL Absolute Neuts (auto) 5.3 (2.0-8.3) x10*3/uL Absolute Nucleated RBC 0.000 (0.0-0.012) X10*3/uL Nucleated RBC % (auto) 0.0 (0.0-0.2) /100WBC Sodium 139 (135-145) mmol/L Potassium 3.4 (3.3-5.1) mmol/L Chloride 107 (96-108) mmol/L Carbon Dioxide 21 L (22-29) mmol/L Anion Gap 14 (12-20) BUN 19 H (9-16) mg/dL Creatinine 1.17 (0.5-1.4) mg/dL Estim Creat Clear Calc 65.8 Estimated GFR > 60 Random Glucose 131 H (60-115) mg/dL Calcium 9.0 (8.4-10.2) mg/dL Magnesium 1.2 L* (1.6-2.6) mg/dL Total Bilirubin 0.4 (0.0-1.0) mg/dL AST 38 H (5-37) U/L ALT 33 (0-40) U/L Alkaline Phosphatase 70 (39-117) U/L Troponin I High Sens 4.8 (<3.5-35.0) ng/L Total Protein 7.1 (6.5-8.0) g/dL Albumin 4.3 (3.5-5.0) g/dL Stool Occult Blood NEGATIVE (NEGATIVE) Critical Care Time Critical Care Time Critical Care Time: Yes Total Critical Care Time: 35 Attestation: I have personally provided critical care time. Time includes review of lab data, radiology results, discussion with consultants, and monitoring for potential decompensation. Intervention performed as documented. Discharge Plan Discharge Clinical Impression: Sciatica, Hypomagnesemia, Chronic anemia Patient Disposition: Home, Self-Care Instructions: Sciatica (ED), Hypomagnesemia (ED), Anemia (ED) Additional Instructions: Please follow-up with your primary care physician tomorrow. If you have any worsening or new symptoms, please return to the emergency room or call 911 Prescriptions: New tramadol 50 mg tablet 50 mg PO BID PRN (Reason: pain) Qty: 7 0RF magnesium oxide 400 mg (241.3 mg magnesium) tablet 400 mg PO DAILY Qty: 30 0RF ferrous gluconate 240 mg (27 mg iron) tablet 240 mg PO DAILY Qty: 60 0RF polyethylene glycol 3350 [Miralax] 17 gram powder in packet 17 g PO DAILY PRN (Reason: laxative effect) Qty: 30 0RF No Action amlodipine 5 mg tablet 5 mg PO DAILY Qty: 30 0RF ibuprofen 800 mg tablet 800 mg PO Q8H PRN (Reason: pain) Qty: 14 0RF Print Language: Maltese
[2024-10-31] MEDS: Magnesium Oxide 400 MG TABLET 800 MG PO (05:21)
[2024-10-31 05:30] VITALS: RESP 21
[2024-10-31] MEDS: dexAMETHasone sod phosphate 4 MG/ML VIAL IVPUSH (05:30)
[2024-10-31] MEDS: HYDROmorphone HCl 1 MG/ML SYRINGE IVPUSH (05:30)
[2024-10-31 05:35] VITALS: BP 137/92; PULSE 101; RESP 20; TEMP 37.1; O2SAT 98
[2024-10-31 06:09] VITALS: BP 137/92; PULSE 101; RESP 20; TEMP 37.1; O2SAT 98
== END 2024-10-31 06:13 | disposition home or self-care (01) ==
PROVIDERS: Emergency Provider Emergency Medicine
DX: M54.30 Sciatica, unspecified side (principal); E83.42 Hypomagnesemia; D53.9 Nutritional anemia, unspecified; R07.9 Chest pain, unspecified; M79.604 Pain in right leg
CPT/HCPCS: 36415; 80053; 82272; 83735; 84484; 85025; 93005; 96374; 96375; 99285; J1100; J1171

== ENCOUNTER → 2024-10-30 20:46 | Outpatient (BNV) | payer MEDICAID, SELFPAY | PROVIDERS: Emergency Provider Emergency Medicine; Visit Provider Internal Medicine Cardiovascular Disease | DX: R00.0 Tachycardia, unspecified (principal) | CPT/HCPCS: 93010 ==

== ENCOUNTER 2024-12-16 15:22 | Outpatient (AMB) | payer MEDICAID, SELFPAY ==
[2024-12-16 15:24] VITALS: BP 126/78; PULSE 84; RESP 16; O2SAT 100; BMI 28.3
--- NOTE | 2024-12-16 15:24 | MHC.OFFVIS ---
Vital Signs 12/16/24 15:24 Height 5 ft 7 in Weight 181 lb BMI 28.3 BP 126/78 Blood Pressure Location Rt brachial Position Sitting Respiration 16 Pulse 84 Pulse Source Pulse Oximeter Pulse Oximetry (%) 100 Oxygen Delivery Method Room Air Intake Visit Reasons: CHRONIC RIGHT-SIDED LOW BACK PAIN Hand Twister Required: Yes Hand Twister Name: Niels [email or web address] Accompanied by: Self / Same As Patient Allergies No Known Allergies Allergy (Verified 12/16/24 15:26) HPI Comments Details: Visit completed with dog day care attendant Niels [email or web address] The patient is a 64-year-old male presenting with lower back pain. The back pain has been present for approximately 8 months with referred pain to the legs. The pain is located in both the lower and upper back. The patient denies any specific injury that initiated the pain. The pain was initially noted in the legs, and imaging revealed arthritis in the back. Patient was also found to have vascular compromise in his right lower extremity which he has been referred to vascular for treatment. The pain is described as aching, sharp, constant is exacerbated by movements such as bending and twisting. The patient has not engaged in physical therapy recently and has been managing the pain with medications prescribed by his primary care provider. Denies red flag symptoms including new loss of bowel, bladder or saddle anesthesia - Onset: Approximately 8 months ago - Quality: Spreading pain - Location: Lower and upper back, referred to legs - Exacerbating factors: Bending, twisting, and certain movements - Relieving factors: Medications provide temporary relief - Affect: Not explicitly discussed - Analgesia: Medications provide temporary relief; taking tramadol, ibuprofen, baclofen - Adverse Effects: Not explicitly discussed - Activities of Daily Living: Pain affects movements such as bending and twisting - Aberrant Drug Related Behaviors: Not explicitly discussed [facility] Social History Unable to assess alcohol history related to: Unknown Review of Systems Const Details: - Musculoskeletal: Reports back pain referred to legs Physical Exam Exam Exam: General: awake, alert, oriented. Answers questions appropriately. Fully engaged in examination. Skin: warm, dry, intact HEENT: Normocephalic. Hearing intact. Cardiac: External chest normal in appearance. Respiratory: No cough, audible wheezing or stridor. Abdomen: without gross distension. MS: No obvious swelling or deformities. Able to stand on bilateral tiptoes and bilateral heels.? Able to transition from sit to stand unassisted. Ambulates with bilaterally normal heel strike and toe off SLR negative bilaterally Tenderness over midline lumbar vertebrae and lumbar paraspinal muscles Nontender over bilateral PSIS Bilateral lower extremity strength 5/5 Decreased lumbar range of motion, pain with flexion and extension Facet loading positive Neurological: Oriented to person, place, time and situation. Thought process intact. No gait abnormalities appreciated. Psychiatric: Appropriate mood and affect. Good judgment and insight. Vital Signs: Last Vital Signs Pulse 84 12/16/24 15:24 Resp 16 12/16/24 15:24 BP 126/78 12/16/24 15:24 Pulse Ox 100 12/16/24 15:24 Oxygen Delivery Method Room Air 12/16/24 15:24 BMI result Body Mass Index 28.3 Results Reviewed Results Reviewed: 10/2024 XR/XR lumbar spine 2-3V FINDINGS: Marginal osteophyte formation and endplate sclerosis throughout the axial skeleton. Percent volume loss of the vertebral bodies is axial skeleton. No acute cortical disruption or gross malalignment. No lytic or blastic lesions. Vascular desiccation's, aorta. IMPRESSION: Multilevel thoracolumbar spondylosis without acute fracture or gross listhesis. 08/2024 EMG Bilateral tibial and peroneal motor studies were performed. Bilateral superficial peroneal, sural, and median and lateral mixed plantar sensory studies were performed. Tibial H reflexes were obtained and paraspinal muscles were tested with a needle. IMPRESSION: Mild to moderate axonal sensory motor peripheral neuropathy. Assessment & Plan Assessment & Plan (1) Myofascial low back pain: Code(s): M54.50 - Low back pain, unspecified Category: Medical (2) Lumbar spondylosis: Code(s): M47.816 - Spondylosis without myelopathy or radiculopathy, lumbar region Category: Medical (3) Chronic back pain: Code(s): M54.9 - Dorsalgia, unspecified; G89.29 - Other chronic pain Category: Medical Plan The patient is suffering with predominantly axial back pain. He will begin physical therapy to address the back pain. If physical therapy does not provide sufficient relief, consideration will be given to administering injections for arthritis management. The patient is advised to continue taking medications prescribed by the primary care provider. Follow-up will be scheduled after the completion of physical therapy to assess progress and determine if further interventions are necessary. If no improvement with PT will plan for fluoroscopy guided diagnostic bilateral L3-L4 DR L5 medial branch blocks with local anesthetic. Patient was informed and verbally consented to the use of an ambient scribe for clinic note documentation during this visit. Orders: Orders PT Evaluation and Treatment Today G89.29 - Other chronic pain, M47.816 - Spondylosis without myelopathy or radiculopathy, lumbar region, M54.50 - Low back pain, unspecified, M54.9 - Dorsalgia, unspecified Patient Instructions: - Begin physical therapy as scheduled. - Continue taking medications as prescribed by your primary care provider. - Return for follow-up after completing physical therapy or sooner if pain worsens. Coding Level of Care Code New Pt Level 4 (48649) Complex EM visit Add On G2211 Diagnoses Myofascial low back pain M54.50 Lumbar spondylosis M47.816 Chronic back pain M54.9; G89.29
--- OUTSIDE RECORDS SUMMARY | 2024-12-16 16:01 | XMS_ITS | Clinical Summary ---
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 90 tablet 3 10/16/19 25 2025 Active cyanocobalamin (Vitamin B-12) 1000 MCG tabletIndications :Vitamin B 12 deficiency Take 1 tablet (1,000 mcg) by mouth Once per day. 90 tablet 3 10/16/19 25 2025 Active cholecalciferol (Vitamin D-3) 50 MCG (2000 UT) capsuleIndication s:Vitamin D deficiency Take 1 capsule (50 mcg) by mouth Once per day. 90 capsule 3 10/16/19 25 Active gabapentin (Neurontin) 100 MG capsule Take 3 capsules (300 mg) by mouth 3 times daily. 90 capsule 3 10/30/19 25 2025 Active baclofen (Lioresal) 10 MG tablet Take 1 tablet (10 mg) by mouth if needed in the morning, at noon, and at bedtime for muscle spasms. 60 tablet 1 10/30/19 25 2024 Active Diclofenac Sodium 1 % gel Apply 2 g topically if needed in the morning, at noon, in the evening, and at bedtime (pain). 150 g 3 10/30/19 25 Active Blood Pressure kit 1 each 1 (one) time per week. 1 kit 10/30/19 Active aspirin 81 MG EC tablet Take 1 tablet (81 mg) by mouth Once per day. 30 tablet 11 10/30/19 25 2025 Active traMADol (Ultram) 50 MG tabletIndications :Chronic right-sided low back pain with right-sided sciatica Take 1 tablet (50 mg) by mouth if needed in the morning and at bedtime for severe pain. 14 tablet 11/27/19 25 Active hydroCHLOROthiazi de (HYDRODiuril) 25 MG tabletIndications :Essential hypertension Take 1 tablet (25 mg) by mouth Once per day. 30 tablet 3 12/01/19 25 2025 Active losartan (Cozaar) 50 MG tabletIndications :Essential hypertension Take 1 tablet (50 mg) by mouth Once per day. 30 tablet 3 12/01/19 25 2025 Active amLODIPine (Norvasc) 5 MG tabletIndications :Essential hypertension Take 1 tablet (5 mg) by mouth Once per day. 30 tablet 3 12/01/19 25 Active losartan (Cozaar) 50 MG tablet Take 1 tablet (50 mg) by mouth Once per day. 30 tablet 3 09/04/19 25 2024 Discontinued(R eorder (will not trigger notification to Pharmacy)) hydroCHLOROthiazi de (HYDRODiuril) 25 MG tablet Take 1 tablet (25 mg) by mouth Once per day. 30 tablet 3 09/04/19 25 2024 Discontinued(R eorder (will not trigger notification to Pharmacy)) acetaminophen (Tylenol 8 Hour) 650 MG ER tablet Take 1 tablet (650 mg) by mouth every 8 (eight) hours if needed for mild pain. Do not crush, chew, or split. 40 tablet 1 10/30/19 25 2024 traMADol (Ultram) 50 MG tablet Take 1 tablet by mouth if needed in the morning and at bedtime for pain. 11/01/19 25 2024 Discontinued(R eorder (will not trigger notification to Pharmacy)) amLODIPine (Norvasc) 5 MG tablet Take 1 tablet by mouth Once per day. 10/13/19 25 2024 Discontinued(R eorder (will not trigger notification to Pharmacy)) Active Problems Problem Noted Date Diagnosed Date Peripheral arterial disease 10/29/2024 Essential hypertension 10/29/2024 Chronic low back pain 10/29/2024 Assessment & Plan (11/03/2024 8:10 PM EDT): Continue Tylenol and baclofen as recommended by PCP. [place] [facility] [place] been sent [facility] pharmacy, [facility]. I told patient to pick it up today, he agreed with POC Follow-up with PCP recommended Chronic pain of right knee 10/29/2024 Peripheral neuropathy 10/29/2024 Hyperlipidemia 10/29/2024 Hypertriglyceridemia 10/29/2024 Vitamin D deficiency 10/29/2024 Encounters Date Type Department Care Team Description 12/03/2024 9:40 AM EDT Office Visit [facility] [address] [place] [phone] Elizabeth Espinal DO Essential hypertension (Primary Dx) 12/03/2024 Travel 11/30/2024 Refill [facility] [address] [place] [phone] Elizabeth Espinal DO Essential hypertension 11/26/2024 11:00 AM EDT Office Visit [facility] [address] [place] [phone] Elizabeth Espinal DO Chronic right-sided low back pain with right-sided sciatica (Primary Dx) 11/26/2024 Travel 11/02/2024 10:40 AM EDT Office Visit [facility] [address] [place] [phone] Rachel Casarez MD Chronic right-sided low back pain with right-sided sciatica (Primary Dx) 10/29/2024 10:40 AM EDT Office Visit [facility] [address] [place] [phone] Elizabeth Espinal DO Chronic right-sided low back pain with right-sided sciatica (Primary Dx); Chronic pain of right knee; Essential hypertension; Peripheral arterial disease (CMS/HCC) 10/29/2024 Travel 10/28/2024 Telephone [facility] [address] [place] [phone] Elizabeth Espinal DO medication refill' 10/15/2024 Refill [facility] [address] [place] [address] [phone] Shannon Whitt RN Hyperlipidemia, unspecified hyperlipidemia type; Vitamin B 12 deficiency; Vitamin D deficiency 10/09/2024 Telephone [facility] [address] [place] [address] Elizabeth Espinal DO telephone call from Last 3 Months Social History Tobacco [...] Sign Reading Time Taken Comments Blood Pressure 148/94 12/03/2024 9:58 AM EDT Pulse 101 12/03/2024 9:29 AM EDT Temperature 36.7 C (98.1 F) 12/03/2024 9:29 AM EDT Respiratory Rate 17 12/03/2024 9:29 AM EDT Oxygen Saturation 97% 12/03/2024 9:29 AM EDT Inhaled Oxygen Concentration - - Weight 83.7 kg (184 lb 9.6 oz) 12/03/2024 9:29 A M EDT Height - - Body Mass Index - - Plan of Treatment Health Maintenance Due Date Last Done Comments CT Colonography 1960 Colonoscopy 1960 Colorectal Cancer Screening 1960 Depression Screening 1960 FIT DNA/Cologuard 1960 FIT 1960 FOBT 1960 SDOH Screening 1960 Sigmoidoscopy 1960 Disability Screening 1960 Alcohol/Substance Use Screening 1972 Tobacco Screening 1972 DTaP/Tdap/Td Vaccines (1 - Tdap) 10/02/1979 Pneumococcal Vaccine: 50+ Ye ars (1 of 1 - PCV) 2010 Zoster Vaccines (1 of 2) 2010 COVID-19 Vaccine ( - 2023-2 5 season) 2024 Influenza Vaccine (#1) 2025 Lipid Panel 10/13/2029 10/13/2024 RSV Patients and Pa tients Aged 60 years or older (1 - 1-dose 75+ series) 10/02/2035 HIV Screening Completed 10/13/2024 Hepatitis C Screening Completed 10/13/2024 HIB Vaccines Aged Out No longer eligi [...] Procedure Name Priority Date/Time Associated Diagnosis Comments XR KNEE 4+ VIEWS RIGHT Routine 10/29/2024 11:23 AM EDT Chronic pain of right knee XR LUMBAR SPINE 2-3 VIEWS Routine 10/29/2024 11:20 AM EDT Hypertensive emergency Bilateral leg pain POCT INFLUENZA B (ID NOW RAPID MOLECULAR) Routine 10/29/2024 10:52 AM EDT Chronic right-sided low back pain with right-sided sciatica POCT INFLUENZA A (ID NOW RAPID MOLECULAR) Routine 10/29/2024 10:52 AM EDT Chronic right-sided low back pain with right-sided sciatica POCT RAPID COVID ANTIGEN Routine 10/29/2024 10:52 AM EDT Chronic right-sided low back pain with right-sided sciatica ALBUMIN, RANDOM URINE W/CREATININE Routine 10/13/2024 2:00 PM EDT Hypertensive emergency Bilateral leg pain CHLAMYDIA/N. GONORRHOEAE RNA, TMA, UROGENITAL Routine 10/13/2024 2:00 PM EDT Hypertensive emergency Bilateral leg pain VITAMIN B12/FOLATE, SERUM PANEL Routine 10/13/2024 9:19 AM EDT Bilateral leg pain MEASLES, MUMPS, AND RUBELLA (MMR) AB (IGG) PANEL, IMMUNE STATUS Routine 10/13/2024 9:19 AM EDT Hypertensive emergency Bilateral leg pain VARICELLA ZOSTER ANTIBODY, IGG Routine 10/13/2024 9:19 AM EDT Hypertensive emergency Bilateral leg pain T-SPOT(R).TB Routine 10/13/2024 9:19 AM EDT Hypertensive emergency Bilateral leg pain HEPATITIS B CORE AB TOTAL Routine 10/13/2024 9:19 AM EDT Hypertensive emergency Bilateral leg pain HEPATITIS A ANTIBODY, TOTAL Routine 10/13/2024 9:19 AM EDT Hypertensive emergency Bilateral leg pain HEPATITIS B SURFACE ANTIBODY, QUALITATIVE Routine 10/13/2024 9:19 AM EDT Hypertensive emergency Bilateral leg pain RPR (MONITOR) W/REFL TITER Routine 10/13/2024 9:19 AM EDT Hypertensive emergency Bilateral leg pain HEPATITIS C AB W/REFL TO HCV RNA, QN, PCR Routine 10/13/2024 9:19 AM EDT Hypertensive emergency Bilateral leg pain HIV 1/2 ANTIGEN/ANTIBODY, FOURTH GENERATION W/RFL Routine 10/13/2024 9:19 AM EDT Hypertensive emergency Bilateral leg pain HEPATITIS B SURFACE ANTIGEN, EIA Routine 10/13/2024 9:19 AM EDT Hypertensive emergency Bilateral leg pain CBC Routine 10/13/2024 9:19 AM EDT Hypertensive emergency Bilateral leg pain BASIC METABOLIC PANEL Routine 10/13/2024 9:19 AM EDT Hypertensive emergency Bilateral leg pain HEMOGLOBIN A1C Routine 10/13/2024 9:19 AM EDT Hypertensive emergency Bilateral leg pain HEPATIC FUNCTION PANEL Routine 10/13/2024 9:19 AM EDT Hypertensive emergency Bilateral leg pain TSH Routine 10/13/2024 9:19 AM EDT Hypertensive emergency Bilateral leg pain LIPID PANEL, STANDARD Routine 10/13/2024 9:19 AM EDT Hypertensive emergency Bilateral leg pain VITAMIN D,25-OH,TOTAL,IA Routine 10/13/2024 9:19 AM EDT Hypertensive emergency Bilateral leg pain T4, FREE Routine 10/13/2024 9:19 AM EDT Hypertensive emergency Bilateral leg pain VASC US LOWER EXTREMITY ARTERIAL DUPLEX BILATERAL Routine 10/07/2024 2:22 PM EDT Hypertensive emergency Bilateral leg pain from Last 3 Months Results * XR Knee 4+ Views Right (10/29/2024 11:23 AM EDT) Anatomical Region Laterality Modality Lower Extremities, Knee Right Radiogra phic Imaging 10/29/2024 11:2 3 AM EDT Narrative 10/29/2024 2:18 [place] [address] XRay Report Signed Patient: Michael Yadav MR# : [id number] : 1960 Acct:[id number] Age/Sex: 64 / M ADM Date: 10/29/24 Loc: .[facility]HCX Attending Dr: Elizabeth Espinal DO Ordering Physician: Elizabeth Espinal DO Date of Service: 10/29/24 Procedure(s): XR knee RT 4V Accession Number(s): [id number] cc: Elizabeth Espinal DO EXAMINATION: XR KNEE, RIGHT CLINICAL INFORMATION: worsening right knee pain COMPARISON: None available. TECHNIQUE: Four views of the right knee. FINDINGS: Joint spaces are preserved. There is no joint effusion. Small marginal osteophyte is present along the medial joint line and medial patella there are possible central osteophytes involving median ridge of patella.. XR/XR knee RT 4V IMPRESSION: Mild osteoarthritis with preserved joint spaces. Electronically signed by: Shabbir Juárez MD 10/29/2024 02:15 PM EDT RP Dictated By: Shabbir Juárez MD Signed By: <Electronically signed by Shabbir Juárez MD in OV> 10/29/24 1415 DD/ 1123 TD/TT: 10/29/24 1200 Medical Scientist: Procedure Note Donotuseinterpreter, Image - 10/29/2024 [place] [address] XRay Report Signed Patient: Kat Yadav# : [id number] : 1960cct:[id number] Age/Sex: 64 / MADM Date: 10/29/24 Loc: HO.HHCX Attending Dr: Elizabeth Espinal DO Ordering Physician: Elizabeth Espinal DO Date of Service: 10/29/24 Procedure(s): XR knee RT 4V Accession Number(s): [id number] cc: Elizabeth Espinal DO EXAMINATION: XR KNEE, RIGHT CLINICAL INFORMATION: worsening right knee pain COMPARISON: None available. TECHNIQUE: Four views of the right knee. FINDINGS: Joint spaces are preserved. There is no joint effusion. Small marginal osteophyte is present along the medial joint line and medial patella there are possible central osteophytes involving median ridge of patella.. XR/XR knee RT 4V IMPRESSION: Mild osteoarthritis with preserved joint spaces. Electronically signed by: Shabbir Juárez MD 10/29/2024 02:15 PM EDT RP Dictated By: Shabbir Juárez MD Signed By: <Electronically signed by Shabbir Juárez MD in OV> 10/29/24 1415 DD/ 1123 TD/TT: 10/29/24 1200 Medical Scientist: Elizabeth Espinal DO IMG XR PROCEDURES Edited Res ult - Final * XR Lumbar Spine 2-3 Views (10/29/2024 11:20 AM EDT) Anatomical Region Laterality Modality Spine, L-spine Radiographic Maria C ging 10/29/2024 11:2 0 AM EDT Narrative 10/29/2024 2:29 PM EDT [facility] [address] [place] [address] XRay Report Signed Patient: Michael Yadav MR# : [id number] : 1960 Acct:[id number] Age/Sex: 64 / M ADM Date: 10/29/24 [facility] Dr: Elizabeth Espinal DO Ordering Physician: Elizabeth Espinal DO Date of Service: 10/29/24 Procedure(s): XR lumbar spine 2-3V Accession Number(s): [id number] cc: Elizabeth Espinal DO EXAMINATION: XR LUMBOSACRAL SPINE CLINICAL INFORMATION: LBP and B/L LE pain COMPARISON: September 03, 2024. TECHNIQUE: Three views of the lumbosacral spine. FINDINGS: Marginal osteophyte formation and endplate sclerosis throughout the axial skeleton. Percent volume loss of the vertebral bodies is axial skeleton. No acute cortical disruption or gross malalignment. No lytic or blastic lesions. Vascular desiccation's, aorta. XR/XR lumbar spine 2-3V IMPRESSION: Multilevel thoracolumbar spondylosis without acute fracture or gross listhesis. Electronically signed by: Niels Juan MD 10/29/2024 02:26 PM EDT Dictated By: Niels Ohara MD Signed By: <Electronically signed by Niels Guidry MD in OV> 10/29/24 1426 DD/ 1120 TD/TT: 10/29/24 1200 Medical Scientist: Procedure Note Donotuseinterpreter, Image - 10/29/2024 [facility] [address] [place] [address] XRay Report Signed Patient: Kat Yadav# : [id number] : 1Acct:[id number] Age/Sex: 64 / MADM Date: 10/29/24 Loc: [facility] Attending Dr: Elizabeth Espinal DO Ordering Physician: Elizabeth Espinal DO Date of Service: 10/29/24 Procedure(s): XR lumbar spine 2-3V Accession Number(s): [id number] cc: Elizabeth Espinal DO EXAMINATION: XR LUMBOSACRAL SPINE CLINICAL INFORMATION: LBP and B/L LE pain COMPARISON: September 03, 2024. TECHNIQUE: Three views of the lumbosacral spine. FINDINGS: Marginal osteophyte formation and endplate sclerosis throughout the axial skeleton. Percent volume loss of the vertebral bodies is axial skeleton. No acute cortical disruption or gross malalignment. No lytic or blastic lesions. Vascular desiccation's, aorta. XR/XR lumbar spine 2-3V IMPRESSION: Multilevel thoracolumbar spondylosis without acute fracture or gross listhesis. Electronically signed by: Niels Juan MD 10/29/2024 02:26 PM EDT RP Dictated By: Niels Ohara MD Signed By: <Electronically signed by Niels Guidry MDin OV> 10/29/24 1426 DD/ 1120 TD/TT: 10/29/24 1200 Medical Scientist: us Elizabeth Espinal DO IMG XR PROCEDURES Final Resu lt * Influenza B (ID NOW Rapid Molecular) (10/29/2024 10:52 AM EDT) Influenza B Negative Negative, Indeterminate [facility] Swab 10/29/2024 10:5 2 AM EDT us Elizabeth Espinal DO POINT OF CARE TEST ENTER/THI T ORDERABLES Final Result Performing Organization Address [facility]/ZIP Co de Phone Number [facility] [address] [place] [phone] * Influenza A (ID NOW Rapid Molecular) (10/29/2024 10:52 AM EDT) Influenza A Negative Negative, Indeterminate [facility] Swab 10/29/2024 10:5 2 AM EDT Elizabeth Espinal DO POINT OF CARE TEST ENTER/THI T ORDERABLES Final Result Performing Organization Address [facility] Co de Phone Number [facility] [address] [place] [phone] * POCT Rapid COVID Ag (10/29/2024 10:52 AM EDT) Rapid COVID Ag Negative [facility] Swab 10/29/2024 10:5 2 AM EDT Elizabeth Espinal DO POINT OF CARE TEST ENTER/THI T ORDERABLES Final Result Performing Organization Address [facility] Co de Phone Number [facility] [address] [place] [phone] * Albumin, Random Urine W/Creatinine (10/13/2024 2:00 PM EDT) Creatinine, Urine 200.14 mg/dL [facility] Microalbumin Urine 43.0 mg/L [facility] Microalbum Creatinine Ratio Ur 21.4 <30 ug/mg cr [facility] Comment:Albumin/Creatinine R atio Reference Ranges: Normal: < 30 ug/mg creatinine Microalbuminuria: 30 - 300 ug/mg creatinineClinical Albuminuria: > 300 ug/mg creatinine Urine (Urine, Random) 10/13/2024 2:00 PM EDT 10/13/2024 5:04 PM EDT us Elizabeth Espinal DO LAB URINE ORDERABLES Final R esult [facility] [address] [place] [phone] * Chlamydia/N. Gonorrhoeae RNA, TMA, Urogenitial (10/13/2024 2:00 PM EDT) CT PCR NOT DETECTED Not Detect. [facility] Comment:A not detected test result does not exclude the possibilityof infection because test results can be affected byimproper specimen collection, concurrent antibiotic therapy,or the number of organisms in the specimen which may bebelow the sensitivity of the test. As with many diagnostictests, results from the Xpert CT/NG assay should beinterpreted in conjunction with other laboratory andclinical data available to the clinician.Xpert CT/NG performance has not been evaluated in patientsless than 14 years of age. The assay should not be used forthe evaluationof suspected sexual abuse or for other medico-legalindications. Additional testing is recommended in anycircumstance when false positive or false negative resultscould lead to adverse medical, social or psychologicalconsequences. NG PCR NOT DETECTED Not Detect. [facility] Comment:A not detected test result does not exclude the possibilityof infection because test results can be affected byimproper specimen collection, concurrent antibiotic therapy,or the number of organisms in the specimen which may bebelow the sensitivity of the test. As with many diagnostictests, results from the Xpert CT/NG assay should beinterpreted in conjunction with other laboratory andclinical data available to the clinician.Xpert CT/NG performance has not been evaluated in patientsless than 14 years of age. The assay should not be used forthe evaluationof suspected sexual abuse or for other medico-legalindications. Additional testing is recommended in anycircumstance when false positive or false negative resultscould lead to adverse medical, social or psychologicalconsequences. Urine Urethral structure / Unknown 10/13/2024 2:00 PM EDT 10/13/2024 5:06 PM EDT Narrative [facility] - 10/14/2024 1:33 PM EDT Urine us Elizabeth Espinal DO LAB MICROBIOLOGY - GENERAL O RDERABLES Final Result Performing Organization Address City/[facility]/ZIP Co de Phone Number [facility] [address] [place] [phone] * (ABNORMAL) Vitamin D, 25-Hydroxy, Total, Immunoassay (10/13/2024 9:19 AM EDT) Vitamin D 25-OH Total 16.6(L) >30 ng/mL [facility] Comment: Health Based Reference Values*< 20 ng/mL Pygvbmzxn47-47 ng/mL Insufficient> 30 ng/mL Sufficient*Jayla CASTELLANOS. N Engl J Med. 2007;357:266-280There is no well-established upper level of normal vitamin Dlevels. Some laboratories use 50 ng/mL as an upper limit ofnormal. However, toxicity is patient-dependent and may occurat any level. Careful correlation with the patient'spresentation is necessary and, if there is concern forvitamin D toxicity, treatment should be consideredirrespective of the serum level.Care must be taken in interpreting Vitamin D results fromdifferent laboratories and methodologies. Published datademonstrated that results from patients undergoinghemodialysis may show a negative bias when tested withvarious automated 25-OH vitamin D assays when compared toLC-MS/MS.When testing samples from patients whose predominant form ofVitamin D is Vitamin D2, such as patients receiving VitaminD2 supplementation, results that are subtherapeutic shouldbe confirmed with another method such as LC-MS/MS. Blood Venous blood specimen / Unknown 10/13/2024 9:19 AM EDT 10/13/2024 9:19 AM EDT us Elizabeth Espinal DO LAB BLOOD ORDERABLES Final R esult Performing Organization Address [facility]/ZIP Co de Phone Number [facility] [address] [place] [phone] * Vitamin B12 (Cobalamin) and Folate Panel, Serum (10/13/2024 9:19 AM EDT) Vitamin B12 217 200 - 900 pg/mL [facility] Comment:NORMAL 200-900 PG/ML INDETERMINATE 160-199 PG/ML DEFICIENT < 160 PG/ML Folate 12.2 > or = 4.0 ng/mL [facility] Comment:Reference Values:> o r = 4.0 ng/mL< 4.0 ng/mL suggests folate deficiency Methotrexate, aminopterin and folinic acid(leucovorin) are chemotherapeutic agents whose molecularstructures are similar to folate; therefore, the Architectfolate assay cannot be used for patients using these drugs. Blood 10/13/2024 9:19 AM EDT 10/13/2024 9:19 AM EDT Elizabeth Espinal DO LAB BLOOD ORDERABLES Final R esult [facility] [address] [place] [phone] * T-SPOT??.TB (10/13/2024 9:19 AM EDT) [facility] T Spot TB Negative Negative [facility] Comment:A negative test resu lt does not exclude the possibilityof exposure to or infection with Mycobacteriumtuberculosis (M. tuberculosis). Patients with recentexposure to TB infected individuals exhibiting anegative T-SPOT.TB result should be considered forretesting within 6 weeks or if other relevant clinicalsymptoms indicate. Results from T-SPOT.TB testing mustbe used in conjunction with each individual'sepidemiological history, current medical status,and results of other diagnostic evaluations.The T-SPOT.TB test is qualitative and results arereported as positive, borderline, or negative, giventhat the test controls perform as expected. In linewith the Centers for Disease Control and Prevention's2010 recommendation to report quantitative measurementsalongside the qualitative result, the laboratoryprovides spot counts for informational purposes only.The T-SPOT.TB test should not be interpreted as aquantitative test. TS PANEL A 0 [facility] TS PANEL B 1 [facility] Negative Control Passed [facility] Positive Control Passed [facility] Comment:For additional infor salma, please refer tohttp://education.[employer]/faq/FKU025(This link is being provided for informational/educational purposes only.)THIS TEST WAS PERFORMED AT:[id number] [place] [address]GAPBNSRMARICARMEN KAUR MD,PHD 10/13/2024 9:19 AM EDT 10/13/2024 9:19 AM EDT us Elizabeth Espinal DO LAB BLOOD ORDERABLES Final R esult [facility] [address] [place] [phone] * Measles, Mumps, and Rubella (MMR) Antibodies??(IgG) Panel, Immune Status (10/13/2024 9:19 AM EDT) Mumps Virus IgG Antibody 26.40 AU/mL [facility] Comment:AU/mL Interpretation ------- <9.00 Not consistent with immunity9.00-10.99 Equivocal>10.99 Consistent with immunityThe presence of mumps IgG antibody suggests immunizationor past or current infection with mumps virus. Rubella IgG Antibody 17.90 Index [facility] Comment:Index Interpretation ----- <0.90 Not consistent with immunity 0.90-0.99 Equivocal > or = 1.00 Consistent with immunityThe presence of rubella IgG antibody suggestsimmunization or past or current infection withrubella virus.THIS TEST WAS PERFORMED AT:[facility] [address] [id number] SOTO MD Rubeola IgG (Measles) 137.00 AU/mL [facility] Comment:AU/mL Interpretation ----- <13.50 Not consistent with eeqgjmpl78.50-16.49 Equivocal>16.49 Consistent with immunityThe presence of measles IgG suggests immunization orpast or current infection with measles virus.For additional information, please refer tohttp://[employer]/faq/BNO479(This link is being provided for informational/educational purposes only.) Blood Venous blood specimen / Unknown 10/13/2024 9:19 AM EDT 10/13/2024 9:19 AM EDT [facility] BLOOD ORDERABLES Final R esult Performing Organization Address [facility] Co de Phone Number [facility] [address] [place] [phone] * Hepatitis C Antibody with Reflex to HCV, RNA, Quantitative, Real-Time PCR (10/13/2024 9:19 AM EDT) Hepatitis C Antibody Nonreactive Nonreactive [facility] Comment:Antibodies to HCV no t detected; does not exclude early acuteHCV infection. Blood Venous blood specimen / Unknown 10/13/2024 9:19 AM EDT 10/13/2024 9:19 AM EDT Elizabeth Teddy LAB BLOOD ORDERABLES Final R esult Performing Organization Address City/[facility] Co de Phone Number [facility] [address] [place] [phone] * Hepatitis A Antibody, Total (10/13/2024 9:19 AM EDT) Hepatitis A Antibody IgG REACTIVE Nonreactive [facility] Comment:The presence of IgG anti-HAV implies past HAV infection(recent or distant) or vaccination against HAV. Blood Venous blood specimen / Unknown 10/13/2024 9:19 AM EDT 10/13/2024 9:19 AM EDT Elizabeth Espinal DO LAB BLOOD ORDERABLES Final R esult Performing Organization Address City/[facility] Co de Phone Number [facility] [address] [place] [phone] * Hepatitis B surface antigen, EIA (10/13/2024 9:19 AM EDT) Hepatitis B Surface Ag Negative Negative [facility] Blood Venous blood specimen / Unknown 10/13/2024 9:19 AM EDT 10/13/2024 9:19 AM EDT Elizabeth Reyesleonid DO LAB BLOOD ORDERABLES Final R esult Performing Organization Address [facility] Co de Phone Number [facility] [address] [place] [phone] * Hepatitis B Core Antibody, Total (10/13/2024 9:19 AM EDT) Hepatitis B Core Antibody Nonreactive Nonreactive [facility] Blood Venous blood specimen / Unknown 10/13/2024 9:19 AM EDT 10/13/2024 9:19 AM EDT Elizabeth Reyesleonid DO LAB BLOOD ORDERABLES Final R esult Performing Organization Address [facility] Co de Phone Number [facility] [address] [place] [phone] * RPR (Monitor) with Reflex to??Titer (10/13/2024 9:19 AM EDT) RPR (Monitor) w/Refl Titer NON-REACTI VE NON-REACT NICKIE [facility] Comment:THIS TEST WAS PERFOR MED AT:[employer] [place] [phone] SOTO MD Rapid Plasma Reagin Ab Titer TNP [facility] Blood Venous blood specimen / Unknown 10/13/2024 9:19 AM EDT 10/13/2024 9:19 AM EDT Elizabeth Teddy DO LAB BLOOD ORDERABLES Final R esult Performing Organization Address City/[facility]/ZIP Co de Phone Number [facility] [address] [place] [phone] * HIV-1/2 Antigen and Antibodies, Fourth Generation, with Reflexes (10/13/2024 9:19 AM EDT) HIV AB/AG Nonreactive Nonreactive [facility] Comment:HIV-1 p24 Ag and/or HIV-1/HIV-2 Ab not detected.A test result that is nonreactive does not exclude thepossibility of exposure to or infection with HIV-1 and/orHIV-2. Nonreactive results in this assay for individualswith prior exposure to HIV-1 and/or HIV-2 may be due toantigen and antibody levels that are below the limit ofdetection of this assay.The [employer] HIV Ag/Ab Combo assay result andsupplemental assay results should be interpreted inconjunction with the patient's clinical presentation,history and other laboratory results. If the results areinconsistent with clinical evidence, additional testing issuggested to confirm the result. Blood Venous blood specimen / Unknown 10/13/2024 9:19 AM EDT 10/13/2024 9:19 AM EDT us Elizabeth Espinal DO LAB BLOOD ORDERABLES Final R esult Performing Organization Address City/[facility]/ZIP Co de Phone Number [facility] [address] [place] [phone] * Hepatitis B Surface Antibody, Qualitative (10/13/2024 9:19 AM EDT) ~Hepatitis B Surface Antibody NONREACTIVE Nonreactive [facility] Comment:Nonreactive: < 8.00 mIU/mL Blood Venous blood specimen / Unknown 10/13/2024 9:19 AM EDT 10/13/2024 9:19 AM EDT us Elizabeth Espinal DO LAB BLOOD ORDERABLES Final R esult [facility] [address] [place] [phone] * (ABNORMAL) CBC (10/13/2024 9:19 AM EDT) White Blood Count 7.0 4.8 - 10.8 X10*3/uL [facility] Red Blood Count 4.85 4.60 - 5.80 X10*6/uL [facility] Hemoglobin 13.7(L) 14.0 - 18.0 g/dl [facility] Hematocrit 39.4(L) 42.0 - 52.0 % [facility] Mean Corpuscular Volume 81.2 80.0 - 98.0 fL [facility] Mean Corpuscular Hemoglobin 28.2 27.0 - 33.0 pg [facility] Mean Corpuscular HGB Conc 34.8 31.0 - 36.0 g/dl [facility] Red Cell Distribution Width 12.7 11.0 - 16.0 % [facility] Platelet Count 329 160 - 400 X10*3/uL [facility] Mean Platelet Volume 10.9 9.4 - 12.4 fL [facility] NRBC Pct Auto 0.3(H) 0.0 - 0.2 /100WBC [facility] NRBC Abs Auto 0.020(H) 0.0 - 0.012 X10*3/uL [facility] Blood Venous blood specimen / Unknown 10/13/2024 9:19 AM EDT 10/13/2024 9:19 AM EDT us Elizabeth Espinal DO LAB BLOOD ORDERABLES Final R esult [facility] [address] [place] [phone] * Varicella zoster antibody, IgG (10/13/2024 9:19 AM EDT) Varicella IgG Antibody 9.01 S/CO [facility] Comment:Signal to Cut-off S/ CO Interpretation --------- <1.00 Negative - Antibody not detected > or = 1.00 Positive - Antibody detected A positive result indicates that the patient has antibody to VZV but does not differentiate between an active or past infection. The clinical diagnosis must be interpreted in conjunction with the clinical signs and symptoms of the patient. This assay reliably measures immunity due to previous infection but may not be sensitive enough to detect antibodies induced by vaccination. Thus, a negative result in a vaccinated individual does not necessarily indicate susceptibility to VZV infection. A more sensitive test for vaccination-induced immunity is Varicella Zoster Virus Antibody Immunity Screen, ACIF.THIS TEST WAS PERFORMED AT:[employer] [place] [phone] SOTO MD Blood Venous blood specimen / Unknown 10/13/2024 9:19 AM EDT 10/13/2024 9:19 AM EDT us Elizabeth Espinal DO LAB BLOOD ORDERABLES Final R esult [facility] [address] [place] [phone] * (ABNORMAL) TSH (10/13/2024 9:19 AM EDT) Thyroid Stimulating Hormone 6.17(H) 0.32 - 4.0 uIU/mL [facility] Comment:Note: A sustained TS H level above 2.5 uIU/mL may warrant further investigation. TSH 3rd Generation ([facility]) Blood Venous blood specimen / Unknown 10/13/2024 9:19 AM EDT 10/13/2024 9:19 AM EDT Elizabeth Espinal LAB BLOOD ORDERABLES Final R esult Performing Organization Address City/[facility]/ZIP Co de Phone Number [facility] [address] [place] [phone] * T4, Free (10/13/2024 9:19 AM EDT) Free T4 (Free Thyroxine) 0.74 0.71 - 1.85 ng/dL [facility] Blood Venous blood specimen / Unknown 10/13/2024 9:19 AM EDT 10/13/2024 9:19 AM EDT Elizabeth Espinal LAB BLOOD ORDERABLES Final R esult Performing Organization Address [facility] Co de Phone Number [facility] [address] [place] [phone] * Hemoglobin A1c (10/13/2024 9:19 AM EDT) Hemoglobin A1c 5.2 <6.0 % [facility] Comment:Hemoglobin A1C Refer ence Range Adults: 4.8 - 6.0 % Non diabetic: < 6.0 % Goal: < 7.0 %Additional Action Suggested: > 8.0 %Note: Hemoglobin A1c results are invalid for patients with abnormal amounts of HbF. Blood transfusions may impact the HbA1c concentration in the patient sample. Estimated Average Glucose 103 mg/dL [facility] Comment:eAG = Estimated ave rage glucose which is %A1C expressed asaverage glucose, using the formula of the [id number] Glucose study (ADAG), Diabetes Care, Vol.31,#8,2007 Blood Venous blood specimen / Unknown 10/13/2024 9:19 AM EDT 10/13/2024 9:19 AM EDT Elizabeth Espinal DO LAB BLOOD ORDERABLES Final R esult Performing Organization Address [facility] Co de Phone Number [facility] [address] [place] [phone] * (ABNORMAL) Hepatic Function Panel (10/13/2024 9:19 AM EDT) Pathologist [facility] Bilirubin, Total 0.7 0.0 - 1.0 mg/dL [facility] Bilirubin, Direct 0.1 0.0 - 0.5 mg/dL [facility] Aspartate Amino Transferase 34 5 - 37 U/L [facility] Alanine Aminotransferase 41(H) 0 - 40 U/L [facility] Total Protein 8.3(H) 6.5 - 8.0 g/dL [facility] Albumin Level 4.6 3.5 - 5.0 g/dL [facility] Alkaline Phosphatase 74 39 - 117 U/L [facility] Blood Venous blood specimen / Unknown 10/13/2024 9:19 AM EDT 10/13/2024 9:19 AM EDT Elizabeth Espinal DO LAB BLOOD ORDERABLES Final R esult [facility] [address] [place] [phone] * (ABNORMAL) Lipid Panel, Standard (10/13/2024 9:19 AM EDT) [facility] Triglycerides 661(H) <150 mg/dL [facility] Comment:Desirable Triglyceri de: less than 150 mg/dLBorderline High Triglyceride 150-199 mg/dLHigh Triglyceride: 200-499 mg/dLVery High Triglyceride: greater than or equal to 5OO mg/dL Cholesterol 247(H) <200 mg/dL [facility] Comment:Desirable Cholestero l: less than 200 mg/dLBorderline High Cholesterol: 200-239 mg/dLHigh Cholesterol: greater than 239 mg/dL LDL Cholesterol Calculated TNP <100 mg/dL [facility] Comment:Unable to calculate the LDL. The formula of Friedwald,Aguila, and Eben is only valid if the triglycerides areless than 400 mg/dl. HDL Cholesterol 46 >40 mg/dL [facility] Comment:Desirable HDL: great er than 40 mg/dL Note: This HDL assay may give artificially low results in patients with liver disease. Blood Venous blood specimen / Unknown 10/13/2024 9:19 AM EDT 10/13/2024 9:19 AM EDT us Elizabeth Espinal DO LAB BLOOD ORDERABLES Final R esult Performing Organization Address City/[facility] Co de Phone Number [facility] [address] [place] [phone] * Basic Metabolic Panel (10/13/2024 9:19 AM EDT) Sodium 140 135 - 145 mmol/L [facility] Potassium 3.9 3.3 - 5.1 mmol/L [facility] Chloride 103 96 - 108 mmol/L [facility] Carbon Dioxide 25 22 - 29 mmol/L [facility] Anion Gap 16 12 - 20 [facility] Urea Nitrogen (BUN) 13 9 - 16 mg/dL [facility] Creatinine, Serum 1.20 0.5 - 1.4 mg/dL [facility] Estimated Glomerular Filt Rate >60 [facility] Comment:Chronic Kidney Disea se: Estimated GFR < 60 mL/min/1.94d2Rgcvft Kidney Disease: Estimated GFR < 15 mL/min/1.73m2 Glucose 100 60 - 115 mg/dL [facility] Calcium 9.3 8.4 - 10.2 mg/dL [facility] Blood Venous blood specimen / Unknown 10/13/2024 9:19 AM EDT 10/13/2024 9:19 AM EDT us Elizabeth Espinal DO LAB BLOOD ORDERABLES Final R esult Performing Organization Address [facility] Co de Phone Number [facility] [address] [place] [phone] * Vascular US lower extremity arterial duplex bilateral (10/07/2024 2:22 PM EDT) 10/07/2024 2:22 PM EDT Narrative [facility] - 10/07/2024 3:13 PM EDT [address] [address] Ultrasound Report Signed Patient: Michael Yadav MR# : [id number] : 1960 Acct:[id number] Age/Sex: 64 / M ADM Date: 10/07/24 Loc: HO.US Attending Dr: Elizabeth Espinal DO Ordering Physician: Elizabeth Espinal DO Date of Service: 10/07/24 Procedure(s): US arterial duplex LE BI Accession Number(s): [id number] cc: Elizabeth Espinal DO EXAMINATION: COLOR-FLOW DUPLEX [...] Mian Vallejo MD 10/07/2024 03:10 PM EDT RP Dictated By: Mian Vallejo MD Signed By: <Electronically signed by Mian Vallejo MD in OV> 10/07/24 1510 DD/ 1422 TD/TT: 10/07/24 1436 Medical Scientist: Procedure Note Donotuseinterpreter, Image - 10/07/2024 [place] [id number] Ultrasound Report Signed Patient: Kat Yadav# : [id number] : 1960cct:[id number] Age/Sex: 64 / MADM Date: 10/07/24 Loc: . Attending Dr: Elizabeth Espinal DO Ordering Physician: Elizabeth Espinal DO Date of Service: 10/07/24 Procedure(s): US arterial duplex LE BI Accession Number(s): [id number] cc: Elizabeth Espinal DO EXAMINATION: COLOR-FLOW DUPLEX [...] 10/07/24 1510 DD/ 1422 TD/TT: 10/07/24 1436 Medical Scientist: us Elizabeth Espinal DO CV VASCULAR PROCEDURES Final Result [facility] [address] [place] [phone] from [place] [id number] [facility] C3 Care Teams Lining Machine Tender Relationship Specialty Start Date End Date Elizabeth Espinal DO [address] [place] [address] PCP - General Family Medicine 09/03/24
== END 2024-12-16 15:49 | disposition home or self-care (01) ==
LOC: HO.PMC 15:22
PROVIDERS: PCP Family Medicine; Referring Provider Family Medicine; Visit Provider Registered Nurse Emergency
DX: M54.50 Low back pain, unspecified (principal); M47.816 Spondylosis without myelopathy or radiculopathy, lumbar region; M54.9 Dorsalgia, unspecified; G89.29 Other chronic pain
CPT/HCPCS: 99204

== ENCOUNTER → 2024-12-16 15:22 | Outpatient (BNVA) | payer MEDICAID, SELFPAY | PROVIDERS: PCP Family Medicine; Referring Provider Family Medicine; Visit Provider Registered Nurse Emergency | DX: M54.50 Low back pain, unspecified (principal); M47.816 Spondylosis without myelopathy or radiculopathy, lumbar region; M54.9 Dorsalgia, unspecified; G89.29 Other chronic pain | CPT/HCPCS: 99212 ==

== ENCOUNTER 2025-01-22 10:40 | Outpatient (REF) | payer MEDICAID, SELFPAY ==
--- OUTSIDE RECORDS SUMMARY | 2025-01-22 10:00 | XMS_ITS | Encounter Summary ---
Author Organization [employer] Address [address] [facility] [address] [place] [address] Care Team Providers Care Hotel Maintenance Worker Name Role Phone Elizabeth Espinal DO Primary Care Provider + [phone] Reason for Visit * Reason Comments Leg Pain Encounter Details Date Type Department Care Team (Late st Contact Info) Description 01/22/2025 10:00 AM EDT Office Visit [facility] [address] [place] [address] Chronic right-sided low back pain without sciatica (Primary Dx); Right leg pain Social History Tobacco Use Types [...] Sign Reading Time Taken Comments Blood Pressure 141/92 01/22/2025 9:57 AM EDT Pulse 99 01/22/2025 9:57 AM EDT Temperature 37.2 C (99 F) 01/22/2025 9:57 AM EDT Respiratory Rate 18 01/22/2025 9:57 AM EDT Oxygen Saturation - - Inhaled Oxygen Concentration - - Weight 86.2 kg (190 lb) 01/22/2025 9:57 AM EDT Height - - Body Mass Index - - documented in this encounter Plan of Treatment Scheduled Orders Name Type Priority Associated Diagnoses Orde r Schedule Creatine Kinase, Total Lab Routine Right leg pain Expected: 01/22/2025 (Approximate), Expires: 01/22/2026 Aldolase Lab Routine Right leg pain Expected: 01/22/2025 (Approximate), Expires: 01/22/2026 Hepatic Function Panel Lab Routine Right leg pain Expected: 01/22/2025 (Approximate), Expires: 01/22/2026 documented as of this encounter Visit Diagnoses Diagnosis Chronic right-sided low back pain without sciatica- Primary Right leg pain Pain in soft tissues of limb documented in this encounter Care Teams Hotel Maintenance Worker Relationship Specialty Start Date End Date Elizabeth Espinal DO [address] [place] [phone] PCP - General Family Medicine 09/03/24 documented as of this encounter
--- OUTSIDE RECORDS SUMMARY | 2025-01-22 11:40 | XMS_ITS | Encounter Summary ---
Author Organization [employer] Address [address] [facility] [address] [place] [address] Care Team Providers Care Tennis Director Name Role Phone Elizabeth Espinal DO Primary Care Provider Encounter Details Date Type Department Care Team (Latest Contact Info) Description 01/22/2025 Travel Social History Tobacco Use Types Packs/Day Years [...] Diagnoses Not on filedocumented in this encounter Care Teams Tennis Director Relationship Specialty Start Date End Date Elizabeth Espinal DO [address] [place] [address] PCP - General Family Medicine 09/03/24 documented as of this encounter
--- OUTSIDE RECORDS SUMMARY | 2025-01-22 11:40 | XMS_ITS | Clinical Summary ---
Author Organization [employer] Address [address] [facility] [address] [place] [address] Care Team Providers Care Powder Core Tester Name Role Phone Elizabeth Espinal DO Primary Care Provider [phone] Allergies No known active allergies Medications atorvastatin (Lipitor) 20 MG tabletIndications :Hyperlipidemia, unspecified hyperlipidemia type Take 1 tablet (20 mg) by mouth Once per day. 90 tablet 3 10/16/19 25 026 Active cyanocobalamin (Vitamin B-12) 1000 MCG tabletIndications :Vitamin B 12 deficiency Take 1 tablet (1,000 mcg) by mouth Once per day. 90 tablet 3 10/16/19 25 026 Active cholecalciferol (Vitamin D-3) 50 MCG (2000 UT) capsuleIndication s:Vitamin D deficiency Take 1 capsule (50 mcg) by mouth Once per day. 90 capsule 3 10/16/19 25 Active Diclofenac Sodium 1 % gel Apply 2 g topically if needed in the morning, at noon, in the evening, and at bedtime (pain). 150 g 3 10/30/19 25 Active Blood Pressure kit 1 each 1 (one) time per week. 1 kit 10/30/19 25 Active aspirin 81 MG EC tablet Take 1 tablet (81 mg) by mouth Once per day. 30 tablet 11 10/30/19 25 026 Active traMADol (Ultram) 50 MG tabletIndications :Chronic right-sided low back pain with right-sided sciatica Take 1 tablet (50 mg) by mouth if needed in the morning and at bedtime for severe pain. 14 tablet 11/27/19 25 Active hydroCHLOROthiazi de (HYDRODiuril) 25 MG tabletIndications :Essential hypertension Take 1 tablet (25 mg) by mouth Once per day. 30 tablet 3 12/01/19 25 026 Active losartan (Cozaar) 50 MG tabletIndications :Essential hypertension Take 1 tablet (50 mg) by mouth Once per day. 30 tablet 3 12/01/19 25 026 Active amLODIPine (Norvasc) 5 MG tabletIndications :Essential hypertension Take 1 tablet (5 mg) by mouth Once per day. 30 tablet 3 12/01/19 25 Active baclofen (Lioresal) 10 MG tabletIndications :Chronic right-sided low back pain without sciatica,Right leg pain Take 1 tablet (10 mg) by mouth if needed in the morning, at noon, and at bedtime for muscle spasms. 90 tablet 2 01/23/20 25 025 Active gabapentin (Neurontin) 300 MG capsuleIndication s:Chronic right-sided low back pain without sciatica,Right leg pain Take 1 capsule (300 mg) by mouth 3 times daily. 90 capsule 2 01/23/20 25 025 Active gabapentin (Neurontin) 100 MG capsule Take 3 capsules (300 mg) by mouth 3 times daily. 90 capsule 3 10/30/19 25 025 Discontinued baclofen (Lioresal) 10 MG tablet Take 1 tablet (10 mg) by mouth if needed in the morning, at noon, and at bedtime for muscle spasms. 60 tablet 1 10/30/19 25 025 Discontinued meloxicam (Mobic) 7.5 MG tabletIndications :Chronic right-sided low back pain with right-sided sciatica Take 1 tablet (7.5 mg) by mouth 2 times daily. 60 tablet 12/19/19 25 025 acetaminophen (Tylenol Extra Strength) 500 MG tabletIndications :Chronic right-sided low back pain with right-sided sciatica Take 2 tablets (1,000 mg) by mouth every 6 (six) hours if needed for moderate pain. 240 tablet 12/19/19 25 025 Active Problems Problem Noted Date Diagnosed Date Peripheral arterial disease 10/29/2024 Essential hypertension 10/29/2024 Chronic low back pain 10/29/2024 Assessment & Plan (11/03/2024 8:10 PM EDT): Continue Tylenol and baclofen as recommended by PCP. Tramadol [place] from this weekend at [facility] [place] been sent to [facility] pharmacy, [facility]. I told patient to pick it up today, he agreed with POC Follow-up with PCP recommended Chronic pain of right knee 10/29/2024 Peripheral neuropathy 10/29/2024 Hyperlipidemia 10/29/2024 Hypertriglyceridemia 10/29/2024 Vitamin D deficiency 10/29/2024 Encounters Date Type Department Care Team Description 01/22/2025 10:00 AM EDT Office Visit [facility] [address] [place] [phone] Chronic right-sided low back pain without sciatica (Primary Dx); Right leg pain 01/22/2025 Travel 12/18/2024 10:20 AM EDT Office Visit [facility] [address] [place] [phone] Rylie Real NP Chronic right-sided low back pain with right-sided sciatica (Primary Dx); Chronic bilateral thoracic back pain; Elevated blood pressure reading in office with diagnosis of hypertension 12/18/2024 Travel 12/03/2024 9:40 AM EDT Office Visit [facility] [address] [place] [phone] Elizabeth Espinal DO Essential hypertension (Primary Dx) 12/03/2024 Travel 11/30/2024 Refill [facility] [address] [place] [phone] Elizabeth Espinal DO Essential hypertension 11/26/2024 11:00 AM EDT Office Visit [facility] [address] [place] [phone] Elizabeth Espinal DO Chronic right-sided low back pain with right-sided sciatica (Primary Dx) 11/26/2024 Travel 11/02/2024 10:40 AM EDT Office Visit [facility] [address] [place] [phone] Rachel Casarez MD Chronic right-sided low back pain with right-sided sciatica (Primary Dx) 10/29/2024 10:40 AM EDT Office Visit [facility] [address] [place] [address] Elizabeth Espinal DO Chronic right-sided low back pain with right-sided sciatica (Primary Dx); Chronic pain of right knee; Essential hypertension; Peripheral arterial disease (CMS/HCC) 10/29/2024 Travel 10/28/2024 Telephone [facility] [address] [place] [phone] Elizabeth Espinal DO medication refill' from Last 3 Months Social History Tobacco [...] 18 01/22/2025 9:57 AM EDT Oxygen Saturation 98% 12/18/2024 10:33 AM EDT Inhaled Oxygen Concentration - - Weight 86.2 [...] COVID-19 Vaccine ( - 2023-2 5 season) 2025 Influenza Vaccine (#1) 2025 Lipid Panel 10/13/2029 [...] right-sided low back pain with right-sided sciatica HEPATITIS C AB W/REFL TO HCV RNA, QN, PCR Routine 10/13/2024 9:19 AM EDT Hypertensive emergency Bilateral leg pain HIV 1/2 ANTIGEN/ANTIBODY, FOURTH GENERATION W/RFL Routine 10/13/2024 9:19 AM EDT Hypertensive emergency Bilateral leg pain LIPID PANEL, STANDARD Routine 10/13/2024 9:19 AM EDT Hypertensive emergency Bilateral leg pain from Last 3 Months or Most Recently Relevant to Health Maintenance Results * XR Knee 4+ Views Right (10/29/2024 11:23 AM EDT) Anatomical Region Laterality Modality Lower Extremities, Knee Right Radiogra phic Imaging 10/29/2024 11:2 3 AM EDT Narrative 10/29/2024 2:18 PM EDT [address] [address] XRay Report Signed Patient: Michael Yadav MR# : [id number] : 1960 Acct:[id number] Age/Sex: 64 / M ADM Date: 10/29/24 Loc: HO.[facility]HCX Attending Dr: Elizabeth Espinal DO Ordering Physician: Elizabeth Espinal DO Date of Service: 10/29/24 Procedure(s): XR knee RT 4V Accession Number(s): [id number] cc: Elizabeth Espinal DO EXAMINATION: XR KNEE, [...] 10/29/24 1415 DD/ 1123 TD/TT: 10/29/24 1200 Manager Marketing Communications: Procedure Note Donotuseinterpreter, Image - 10/29/[address] [address] XRay Report Signed Patient: Kat Yadav# : [id number] : [id number]:[id number] Age/Sex: 64 / MADM Date: 10/29/24 Loc: HO.HHCX Attending Dr: Elizabeth Espinal DO Ordering Physician: Elizabeth Espinal DO Date of Service: 10/29/24 Procedure(s): XR knee RT 4V Accession Number(s): [id number] cc: Elizabeth Espinal DO EXAMINATION: XR KNEE, [...] Shabbir Juárez MD 10/29/2024 02:15 PM EDT Dictated By: Shabbir Juárez MD Signed By: <Electronically signed by Shabbir Juárez MD in OV> 10/29/24 1415 DD/ 1123 TD/TT: 10/29/24 1200 Manager Marketing Communications: Elizabeth Espinal DO IMG XR PROCEDURES Edited Res ult - Final * XR Lumbar Spine 2-3 Views (10/29/2024 11:20 AM EDT) Anatomical Region Laterality Modality Spine, L-spine Radiographic Maria C ging 10/29/2024 11:2 0 AM EDT Narrative 10/29/2024 2:29 PM EDT [address] [address] XRay Report Signed Patient: Michael Yadav MR# : [id number] : 1960 Acct:[id number] Age/Sex: 64 / M ADM Date: 10/29/24 [facility]: Elizabeth Espinal DO Ordering Physician: Elizabeth Espinal DO Date of Service: 10/29/24 Procedure(s): XR lumbar spine 2-3V Accession Number(s): [id number] cc: Elizabeth Espinal DO EXAMINATION: XR LUMBOSACRAL [...] 10/29/24 1426 DD/ 1120 TD/TT: 10/29/24 1200 Manager Marketing Communications: Procedure Note Donotuseinterpreter, Image - 10/29/[address] [address] XRay Report Signed Patient: Brody YadavR# : [id number] : [id number]:[id number] Age/Sex: 64 / MADM Date: 10/29/24 [facility]: Elizabeth Espinal DO Ordering Physician: Elizabeth Espinal DO Date of Service: 10/29/24 Procedure(s): XR lumbar spine 2-3V Accession Number(s): [id number] cc: Elizabeth Espinal DO EXAMINATION: XR LUMBOSACRAL [...] 10/29/24 1426 DD/ 1120 TD/TT: 10/29/24 1200 Manager Marketing Communications: Elizabeth Espinal DO IMG XR PROCEDURES Final Resu lt * Influenza B (ID NOW Rapid Molecular) (10/29/2024 10:52 AM EDT) Influenza B Negative Negative, Indeterminate [facility] Swab 10/29/2024 10:5 2 AM EDT Elizabeth Espinal DO POINT OF CARE TEST ENTER/THI T ORDERABLES Final Result [facility] [address] [place] [phone] * Influenza A (ID NOW Rapid Molecular) (10/29/2024 10:52 AM EDT) Influenza A Negative Negative, Indeterminate [facility] Swab 10/29/2024 10:5 2 AM EDT Elizabeth Jurcsak DO POINT OF CARE TEST ENTER/THI T ORDERABLES Final Result Performing Organization Address [facility]/ZIP Co de Phone Number [facility] [address] [place] [phone] * POCT Rapid COVID Ag (10/29/2024 10:52 AM EDT) Rapid COVID Ag Negative [facility] Swab 10/29/2024 10:5 2 AM EDT Elizabeth Roachlen DO POINT OF CARE TEST ENTER/THI T ORDERABLES Final Result Performing Organization Address [facility] Co de Phone Number [facility] [address] [place] [phone] * Hepatitis C Antibody with Reflex to HCV, RNA, Quantitative, Real-Time PCR (10/13/2024 9:19 AM EDT) [facility] Hepatitis C Antibody Nonreactive Nonreactive [facility] Comment:Antibodies to HCV no t detected; does not exclude early acuteHCV infection. Blood Venous blood specimen / Unknown 10/13/2024 9:19 AM EDT 10/13/2024 9:19 AM EDT Elizabeth Teddy DO LAB BLOOD ORDERABLES Final R esult Performing Organization Address [facility] Co de Phone Number [facility] [address] [place] [phone] * HIV-1/2 Antigen and Antibodies, Fourth Generation, with Reflexes (10/13/2024 9:19 AM EDT) [facility] HIV AB/AG Nonreactive Nonreactive [facility] Comment:HIV-1 p24 Ag and/or HIV-1/HIV-2 Ab not detected.A test result that is nonreactive does not exclude thepossibility of exposure to or infection with HIV-1 and/orHIV-2. Nonreactive results in this assay for individualswith prior exposure to HIV-1 and/or HIV-2 may be due toantigen and antibody levels that are below the limit ofdetection of this assay.The Un[employer]Auth0 HIV Ag/Ab Combo assay result andsupplemental assay results should be interpreted inconjunction with the patient's clinical presentation,history and other laboratory results. If the results areinconsistent with clinical evidence, additional testing issuggested to confirm the result. Blood Venous blood specimen / Unknown 10/13/2024 9:19 AM EDT 10/13/2024 9:19 AM EDT Elizabeth Espinal DO LAB BLOOD ORDERABLES Final R esult [facility] [address] [place] [phone] * (ABNORMAL) Lipid Panel, Standard (10/13/2024 9:19 AM EDT) Triglycerides 661(H) <150 mg/dL [facility] Comment:Desirable Triglyceri de: less than 150 mg/dLBorderline High Triglyceride 150-199 mg/dLHigh Triglyceride: 200-499 mg/dLVery High Triglyceride: greater than or equal to 5OO mg/dL Cholesterol 247(H) <200 mg/dL [facility] Comment:Desirable Cholestero l: less than 200 mg/dLBorderline High Cholesterol: 200-239 mg/dLHigh Cholesterol: greater than 239 mg/dL LDL Cholesterol Calculated TNP <100 mg/dL [facility] Comment:Unable to calculate the LDL. The formula of Friedwald,Aguila, and Eben is only valid if the triglycerides areless than 400 mg/dl. HDL Cholesterol 46 >40 mg/dL [facility] Comment:Desirable HDL: great er than 40 mg/dL Note: This HDL assay may give artificially low results in patients with liver disease. Blood Venous blood specimen / Unknown 10/13/2024 9:19 AM EDT 10/13/2024 9:19 AM EDT us Elizabeth Espinal DO LAB BLOOD ORDERABLES Final R esult [facility] [address] [place] [phone] from Last 3 Months or Most Recently Relevant to Health Maintenance [facility] Powder Core Tester Relationship Specialty Start Date End Date Elizabeth Espinal DO [address] [place] [phone] PCP - General Family Medicine 09/03/24
[2025-01-22 11:57] LABS: Alanine Aminotransferase 52 U/L (0-40); Albumin Level 4.7 g/dL (3.5-5.0); Alkaline Phosphatase 74 U/L (39-117); Aspartate Amino Transferase 51 U/L (5-37); Total Protein 7.8 g/dL (6.5-8.0)
== END 2025-01-22 10:41 | disposition home or self-care (01) ==
LOC: HO.HHCL 10:40
PROVIDERS: PCP Family Medicine; Visit Provider Family Medicine
DX: M79.604 Pain in right leg (principal)
CPT/HCPCS: 36415; 80076; 82085; 82550

== ENCOUNTER → 2025-03-05 07:55 | Outpatient (BNV) | payer MEDICAID, SELFPAY | PROVIDERS: PCP Family Medicine; Visit Provider Radiology Diagnostic Radiology | DX: M48.062 Spinal stenosis, lumbar region with neurogenic claudication (principal) | CPT/HCPCS: 72148 ==

== ENCOUNTER 2025-03-05 07:59 | Outpatient (REF) | payer MEDICAID, SELFPAY ==
--- NOTE | ~2025-03-05 | MR_ITS ---
CLINICAL HISTORY: persistent worsening back pain MR lumbar spine without gadolinium Comparison: CR/SR - XR LUMBAR SPINE 2-3 VIEWS - 10/29/24 12:20 EDT Findings: No acute fracture or pathologic bone lesion. Cauda equina and conus medullaris within normal limits. L1-2: No significant central canal or neural foraminal stenosis. L2-3: No significant central canal stenosis. Bilateral broad-based disc bulges with [id number] neural foraminal stenosis with impingement of the exiting L2 nerve roots. L3-4: Grade 1 anterolisthesis of L3 over L4. Broad-based disc bulge with minimal central canal stenosis and mild to moderate bilateral neural foraminal stenosis with impingement on the exiting L3 nerve roots. L4-5: Central annular fissure. Minimal broad-based disc bulge with minimal central canal stenosis and moderate bilateral neural foraminal stenosis with impingement of the exiting L4 nerve roots. L5-S1: Broad-based disc bulge non impinging of the thecal sac with mild left and [id number] right neural foraminal stenosis with impingement on the exiting L5 nerve roots. Paraspinous musculature intact. Filum terminale at L1-2 level. IMPRESSION: 1. Grade 1 anterolisthesis of L3 over L4 with broad-based disc bulge, minimal central canal stenosis, and mild to moderate bilateral neural foraminal stenosis impinging L3 nerve roots. 2. Multilevel degenerative changes with disc bulges and neural foraminal stenosis, most pronounced at L2-3, L4-5, and L5-S1 levels, impinging on exiting nerve roots. 3. No acute fracture or pathologic bone lesion. This document has been electronically signed by: Raul Ashford MD on 03/07/2025 19:11:52
== END 2025-03-05 08:00 | disposition home or self-care (01) ==
LOC: HO.MRI 07:59
PROVIDERS: PCP Family Medicine; Visit Provider Internal Medicine
DX: M54.42 Lumbago with sciatica, left side (principal); M54.41 Lumbago with sciatica, right side; G89.29 Other chronic pain
CPT/HCPCS: 72148

== ENCOUNTER 2025-04-29 13:45 | Outpatient (REF) | payer MEDICAID, SELFPAY ==
--- NOTE | ~2025-04-29 | US_ITS ---
EXAMINATION: Noninvasive assessment of the bilateral lower extremities with ARTERIAL DUPLEX, ANKLE BRACHIAL INDICES (ABIs), and PULSE VOLUME RECORDINGS (PVRs). CLINICAL INFORMATION: Pain in the right leg. TECHNIQUE: Duplex Doppler techniques with waveform analysis and measurement of velocities in the bilateral common femoral, profunda femoris, superficial femoral, popliteal and tibial arteries were performed. Additionally, ankle pulse volume recordings, ankle pressure measurements and ankle brachial indices were obtained of the lower extremity arterial system bilaterally. The study was performed only at rest. COMPARISON: October 07, 2024 FINDINGS: DIRECT DUPLEX DOPPLER FINDINGS: RIGHT LEG: Common femoral artery: 99 cm/s, phasicity: Triphasic. Profunda femoris artery: 47 cm/s, phasicity: Triphasic. Superficial femoral artery (proximal): 64 cm/s, phasicity: Triphasic. Superficial femoral artery (mid): 70 cm/s, phasicity: Triphasic. Superficial femoral artery (distal): 55 cm/s, phasicity: Triphasic. Popliteal artery: 74 cm/s, phasicity: Triphasic. Posterior tibial artery: 71 cm/s, phasicity: Triphasic. Spectral broadening. Peroneal artery: 46 cm/s, phasicity: Triphasic. Spectral broadening. Anterior tibial artery: 54 cm/s, phasicity: Triphasic. Spectral broadening. Dorsalis pedis artery: 21 cm/s, phasicity:Biphasic. Spectral broadening. LEFT LEG: Common femoral artery: 107 cm/s, phasicity: [Triphasic.. Profunda femoris artery: 67 cm/s, phasicity: Triphasic. Superficial femoral artery (proximal): 71 cm/s, phasicity: Triphasic. Spectral broadening. Superficial femoral artery (mid): 72 cm/s, phasicity: Triphasic. Superficial femoral artery (distal): 79 cm/s, phasicity: Triphasic. Spectral broadening. Popliteal artery: 67 cm/s, phasicity: Triphasic. Spectral broadening. Posterior tibial artery: 76 cm/s, phasicity: Triphasic. Spectral broadening. Peroneal artery: 34 cm/s, phasicity: Biphasic. Spectral broadening. Anterior tibial artery: 51 cm/s, phasicity: Triphasic. Spectral broadening. Dorsalis pedis artery: 39 cm/s, phasicity: Biphasic. Spectral broadening. BRACHIAL PRESSURES: Right: 146 Left: 145 ANKLE PRESSURES: Right: PT 157, DP 159 Left: PT 168, DP 154 ANKLE-BRACHIAL INDEX: Right: 1.09 Left: 1.15 ANKLE PVR WAVEFORMS: Right: Normal Left: Normal US/US arterial duplex BI w/ SAM IMPRESSION: Right leg: Mild to moderate inflow disease, dorsalis pedis artery. Left leg: Mild to moderate inflow disease, dorsalis pedis artery. SAM Reference: - >1.4 = calcified vessels - 0.9 - 1.4 = normal - no significant arterial disease - 0.7 - 0.89 = mild peripheral arterial disease - 0.51 - 0.69 = moderate peripheral arterial disease - 0.50 = severe peripheral arterial disease - < .30 = critical arterial disease Electronically signed by: Niels Juan MD 04/29/2025 02:56 PM ISABEL ROBERSON
--- OUTSIDE RECORDS SUMMARY | 2025-04-29 21:04 | XMS_ITS | Clinical Summary ---
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 90 tablet 3 5 3:34 PM EST 10/16/19 25 2025 Active cyanocobalamin (Vitamin B-12) 1000 MCG tabletIndications :Vitamin B 12 deficiency Take 1 tablet (1,000 mcg) by mouth Once per day. 90 tablet 3 5 3:34 PM EST 10/16/19 25 2025 Active cholecalciferol (Vitamin D-3) 50 MCG (1999 UT) capsuleIndication s:Vitamin D deficiency Take 1 capsule (50 mcg) by mouth Once per day. 90 capsule 3 5 3:35 PM EST 10/16/19 25 Active Blood Pressure kit 1 each 1 (one) time per week. 1 kit 10/30/19 25 Active aspirin 81 MG EC tablet Take 1 tablet (81 mg) by mouth Once per day. 30 tablet 11 5 3:34 PM EST 10/30/19 25 2025 Active baclofen (Lioresal) 10 MG tabletIndications :Chronic right-sided low back pain without sciatica,Right leg pain Take 1 tablet (10 mg) by mouth if needed in the morning, at noon, and at bedtime for muscle spasms. 90 tablet 2 5 3:35 PM EST 01/23/20 25 2025 Active amLODIPine (Norvasc) 5 MG tabletIndications :Essential hypertension Take 1 tablet (5 mg) by mouth Once per day. 30 tablet 3 5 10:41 AM EST 02/20/20 25 Active Diclofenac Sodium 1 % gelIndications:Ch ronic bilateral low back pain with bilateral sciatica Apply 2 g topically if needed in the morning, at noon, in the evening, and at bedtime (pain). 150 g 3 02/20/20 25 Active gabapentin (Neurontin) 300 MG capsuleIndication s:Right leg pain,Chronic bilateral low back pain with bilateral sciatica Take 1 capsule (300 mg) by mouth 3 times daily. 90 capsule 2 5 3:34 PM EST 02/20/20 25 2025 Active hydroCHLOROthiazi de (HYDRODiuril) 25 MG tabletIndications :Essential hypertension TAKE 1 TABLET BY MOUTH ONCE DAILY 90 tablet 1 5 10:41 AM EST 02/23/20 25 Active lidocaine (Lidoderm) 5 % patch Apply 1 patch topically Once per day. Remove & discard patch within 12 hours or as directed by MD. 30 patch 2 5 3:34 PM EST 03/24/20 25 2025 Active traMADol (Ultram) 50 MG tabletIndications :Chronic right-sided low back pain with right-sided sciatica Take 1 tablet (50 mg) by mouth if needed in the morning and at bedtime for severe pain. 14 tablet 03/24/20 25 Active meloxicam (Mobic) 7.5 MG tabletIndications :Chronic right-sided low back pain with right-sided sciatica Take 1 tablet (7.5 mg) by mouth if needed each day for mild pain or moderate pain. 30 tablet 5 12:31 PM EST 04/23/20 25 Active losartan (Cozaar) 100 MG tabletIndications :Essential hypertension Take 1 tablet (100 mg) by mouth Once per day. 90 tablet 3 5 12:31 PM EST 04/23/20 25 Active acetaminophen (Tylenol 8 Hour) 650 MG ER tablet TAKE 1 TABLET BY MOUTH EVERY 8 HOURS NEEDED FOR MILD PAIN, DO NOT BREAK, CRUSH, DISSOLVE OR CHEW 40 tablet 1 04/29/20 25 Active acetaminophen (Tylenol 8 Hour) 650 MG ER tablet Take 1 tablet (650 mg) by mouth every 8 (eight) hours if needed for mild pain. Do not crush, chew, or split. 40 tablet 1 3:35 PM EST 10/30/19 25 2024 Discontinued losartan (Cozaar) 50 MG tabletIndications :Essential hypertension TAKE 1 TABLET BY MOUTH ONCE DAILY 90 tablet 1 02/23/20 25 2024 Discontinued(R eorder (will not trigger notification to Pharmacy)) meloxicam (Mobic) 7.5 MG tabletIndications :Chronic right-sided low back pain with right-sided sciatica Take 1 tablet (7.5 mg) by mouth if needed each day for mild pain or moderate pain. 30 tablet 03/02/20 25 2024 Discontinued(R eorder (will not trigger notification to Pharmacy)) Active Problems Problem Noted Date Diagnosed Date Bilateral leg pain 02/19/2025 Assessment & Plan (02/19/2025 12:39 PM EDT): Multiple factors could be radiculopathy versus claudication from peripheral vascular disease, advised to follow-up with vascular and pain management Peripheral arterial disease 10/29/2024 Essential hypertension 10/29/2024 Assessment & Plan (02/19/2025 12:38 PM EDT): Today blood pressure is elevated but he has not been taking his amlodipine for a week now so I refilled his amlodipine and advised to monitor his blood pressure at home and continue with low-sodium diet Chronic bilateral low back pain with bilateral s ciatica 10/29/2024 Assessment & Plan (02/19/2025 12:40 PM EDT): I put refills for his gabapentin and diclofenac I also let him know he can also take acetaminophen as needed, I put again his referral to physical therapy and after that I advised to follow-up with pain management I will also order an MRI of his back I will contact him with results Assessment & Plan (11/03/2024 8:10 PM EDT): Continue Tylenol and baclofen as recommended by PCP. Tramadol prescription from this weekend at [facility] had been sent to [facility] pharmacy, [facility]. I told patient to pick it up today, he agreed with POC Follow-up with PCP recommended Chronic pain of right knee 10/29/2024 Peripheral neuropathy 10/29/2024 Hyperlipidemia 10/29/2024 Hypertriglyceridemia 10/29/2024 Vitamin D deficiency 10/29/2024 Encounters Date Type Department Care Team Description 04/29/2025 Orders Only [facility] [address] [facility] [place] [address] Sary Chavez MD 04/29/2025 Refill [facility] [address] [place] [address] Elizabeth Espinal DO 04/23/2025 Refill [facility] [address] [place] [address] Shannon Whitt RN Essential hypertension 04/22/2025 10:30 AM EST Clinical Support [facility] [place] [address] Shannon Whitt RN Essential hypertension 04/22/2025 Refill [facility] [address] [place] [address] Shannon Whitt RN Chronic right-sided low back pain with right-sided sciatica 04/22/2025 Travel 04/07/2025 Telephone [facility] [address] [facility] [place] [address] Elizabeth Espinal, BP medications 04/07/2025 Travel 03/24/2025 9:40 AM EST Office Visit [facility] [address] [place] [address] Markos Falcon MD Chronic right-sided low back pain with right-sided sciatica (Primary Dx); Essential hypertension 03/24/2025 Travel 03/08/2025 Results Follow-Up [facility] [address] [facility] [place] [address] Sary Chavez MD MR Lumbar Spine w/o Contrast 03/01/2025 Refill [facility] [address] [place] [address] Rylie Real NP Chronic right-sided low back pain with right-sided sciatica 02/21/2025 Refill [facility] [address] [place] [address] Elizabeth Espinal DO Essential hypertension 02/19/2025 10:00 AM EDT Office Visit [facility] [address] [place] [phone] Sary Chavez MD Chronic bilateral low back pain with bilateral sciatica (Primary Dx); Essential hypertension; Right leg pain; Bilateral leg pain 02/19/2025 Travel 02/10/2025 Telephone [facility] [address] [place] [phone] Elizabeth Espinal DO telephone call from Last 3 Months Social History Tobacco Use Types Packs/Day Years Used Date Smoking Tobacco: Never Smokeless Tobacco: Never Tobacco Cessation:Counseling Given: Not Answered Sex and Gender Information Value Date Recorded Sex Assigned at Male 09/03/2024 8:38 AM EDT Legal Sex Male 1:53 PM EST Gender Identity Male 09/03/2024 8:38 AM EDT Sexual Orientation Straight 09/03/2024 8: 39 AM EDT Last Filed Vital Signs Vital Sign Reading Time Taken Comments Blood Pressure 150/90 04/22/2025 10:59 AM EST Pulse 88 04/22/2025 10:59 AM EST Temperature 35.9 C (96.7 F) 03/24/2025 9:47 AM EST Respiratory Rate 20 03/24/2025 9:47 AM EST Oxygen Saturation 98% 03/24/2025 9:47 AM EST Inhaled Oxygen Concentration - - Weight 84.3 kg (185 lb 12.8 oz) 03/24/2025 9:47 AM EST Height 170.2 cm (5' 7 ) 03/24/2025 9:47 AM EST Body Mass Index 29.1 03/24/2025 9:47 AM EST Plan of Treatment Upcoming Encounters Date Type Department Care Team (Late st Contact Info) Description 05/12/2025 9:15 AM EST Office Visit [facility] [address] [place] [phone] Elizabeth Espinal DO [address] [place] [phone] Health Maintenance Due Date Last Done Comments CT Colonography 1960 Colonoscopy 1960 Colorectal Cancer Screening 1960 Depression Screening 1960 FIT DNA/Cologuard 1960 FIT 1960 FOBT 1960 SDOH Screening 1960 Sigmoidoscopy 1960 Disability Screening 1960 Alcohol/Substance Use Screening 1972 DTaP/Tdap/Td Vaccines (1 - Tdap) 10/02/1979 Pneumococcal Vaccine: 50+ Ye ars (1 of 1 - PCV) 2010 Zoster Vaccines (1 of 2) 2010 COVID-19 Vaccine (1 - 2024-2 6 season) 2025 Influenza Vaccine (#1) 2025 Tobacco Screening 03/24/2026 03/24/2025 Lipid Panel 10/13/2029 10/13/2024 RSV Patients and [...] VASC US LOWER EXTREMITY ARTERIAL DUPLEX BILATERAL WITH BETINA Routine 04/29/2025 2:05 PM EST MR LUMBAR SPINE WO CONTRAST Routine 03/07/2025 7:11 PM EDT Chronic bilateral low back pain with bilateral sciatica HEPATITIS C AB W/REFL TO HCV RNA, QN, PCR Routine 10/13/2024 9:19 AM EDT Hypertensive emergency Bilateral leg pain HIV 1/2 ANTIGEN/ANTIBODY, FOURTH GENERATION W/RFL Routine 10/13/2024 9:19 AM EDT Hypertensive emergency Bilateral leg pain LIPID PANEL, STANDARD Routine 10/13/2024 9:19 AM EDT Hypertensive emergency Bilateral leg pain from Last 3 Months or Most Recently Relevant to Health Maintenance Results * [facility] US Lower Extremity Arterial Duplex Bilateral With Betina (04/29/2025 2:05 PM EST) 04/29/2025 2:05 PM EST [facility] - 04/29/2025 2:59 PM EST [address] [address] Ultrasound Report Signed Patient: Michael Yadav MR# : [id number] : 1960 Acct:[id number] Age/Sex: 64 / M ADM Date: 04/29/25 Loc: .US Attending Dr: Sary Cowan MD Ordering Physician: Sary Chavez MD Date of Service: 04/29/25 Procedure(s): US arterial duplex BI w/ BETINA Accession Number(s): [id number] cc: Sary Chavez MD; Elizabeth Espinal DO Reason for Exam: PAIN IN RIGHT LEG EXAMINATION: Noninvasive assessment of the bilateral lower extremities with ARTERIAL DUPLEX, ANKLE BRACHIAL INDICES (ABIs), and PULSE VOLUME RECORDINGS (PVRs). CLINICAL INFORMATION: Pain in the right leg. TECHNIQUE: Duplex Doppler techniques with waveform analysis and measurement of velocities in the bilateral common femoral, profunda femoris, superficial femoral, popliteal and tibial arteries were performed. Additionally, ankle pulse volume recordings, ankle pressure measurements and ankle brachial indices were obtained of the lower extremity arterial system bilaterally. The study was performed only at rest. COMPARISON: October 07, 2024 FINDINGS: DIRECT DUPLEX DOPPLER FINDINGS: RIGHT LEG: Common femoral artery: 99 cm/s, phasicity: Triphasic. Profunda femoris artery: 47 cm/s, phasicity: Triphasic. Superficial femoral artery (proximal): 64 cm/s, phasicity: Triphasic. Superficial femoral artery (mid): 70 cm/s, phasicity: Triphasic. Superficial femoral artery (distal): 55 cm/s, phasicity: Triphasic. Popliteal artery: 74 cm/s, phasicity: Triphasic. Posterior tibial artery: 71 cm/s, phasicity: Triphasic. Spectral broadening. Peroneal artery: 46 cm/s, phasicity: Triphasic. Spectral broadening. Anterior tibial artery: 54 cm/s, phasicity: Triphasic. Spectral broadening. Dorsalis pedis artery: 21 cm/s, phasicity:Biphasic. Spectral broadening. LEFT LEG: Common femoral artery: 107 cm/s, phasicity: [Triphasic.. Profunda femoris artery: 67 cm/s, phasicity: Triphasic. Superficial femoral artery (proximal): 71 cm/s, phasicity: Triphasic. Spectral broadening. Superficial femoral artery (mid): 72 cm/s, phasicity: Triphasic. Superficial femoral artery (distal): 79 cm/s, phasicity: Triphasic. Spectral broadening. Popliteal artery: 67 cm/s, phasicity: Triphasic. Spectral broadening. Posterior tibial artery: 76 cm/s, phasicity: Triphasic. Spectral broadening. Peroneal artery: 34 cm/s, phasicity: Biphasic. Spectral broadening. Anterior tibial artery: 51 cm/s, phasicity: Triphasic. Spectral broadening. Dorsalis pedis artery: 39 cm/s, phasicity: Biphasic. Spectral broadening. BRACHIAL PRESSURES: Right: 146 Left: 145 ANKLE PRESSURES: Right: PT 157, DP 159 Left: PT 168, DP 154 ANKLE-BRACHIAL INDEX: Right: 1.09 Left: 1.15 ANKLE PVR WAVEFORMS: Right: Normal Left: Normal US/US arterial duplex BI w/ BETINA IMPRESSION: Right leg: Mild to moderate inflow disease, dorsalis pedis artery. Left leg: Mild to moderate inflow disease, dorsalis pedis artery. BETINA Reference: - >1.4 = calcified vessels - 0.9 - 1.4 = normal - no significant arterial disease - 0.7 - 0.89 = mild peripheral arterial disease - 0.51 - 0.69 = moderate peripheral arterial disease - 0.50 = severe peripheral arterial disease - < .30 = critical arterial disease Electronically signed by: Niels Juan MD 04/29/2025 02:56 PM EST Dictated By: Niels Ohara MD Signed By: <Electronically signed by Niels Guidry MD in OV> 04/29/25 1456 DD/ 1405 TD/TT: 04/29/25 1430 Stone Crusher Operator: Procedure Note Donotuseinterpreter, Image - 04/29/[address] [address] Ultrasound Report Signed Patient: Kat Yadav# : [id number] : 1960cct:[id number] Age/Sex: 64 / MADM Date: 04/29/25 Loc: HO.US Attending Dr: Sary Cowan MD Ordering Physician: Sary Chavez MD Date of Service: 04/29/25 Procedure(s): US arterial duplex BI w/ BETINA Accession Number(s): [id number] cc: Sary Chavez MD; Elizabeth Espinal DO Reason for Exam: PAIN IN RIGHT LEG EXAMINATION: Noninvasive assessment of the bilateral lower extremities with ARTERIAL DUPLEX, ANKLE BRACHIAL INDICES (ABIs), and PULSE VOLUME RECORDINGS (PVRs). CLINICAL INFORMATION: Pain in the right leg. TECHNIQUE: Duplex Doppler techniques with waveform analysis and measurement of velocities in the bilateral common femoral, profunda femoris, superficial femoral, popliteal and tibial arteries were performed. Additionally, ankle pulse volume recordings, ankle pressure measurements and ankle brachial indices were obtained of the lower extremity arterial system bilaterally. The study was performed only at rest. COMPARISON: October 07, 2024 FINDINGS: DIRECT DUPLEX DOPPLER FINDINGS: RIGHT LEG: Common femoral artery: 99 cm/s, phasicity: Triphasic. Profunda femoris artery: 47 cm/s, phasicity: Triphasic. Superficial femoral artery (proximal): 64 cm/s, phasicity: Triphasic. Superficial femoral artery (mid): 70 cm/s, phasicity: Triphasic. Superficial femoral artery (distal): 55 cm/s, phasicity: Triphasic. Popliteal artery: 74 cm/s, phasicity: Triphasic. Posterior tibial artery: 71 cm/s, phasicity: Triphasic. Spectral broadening. Peroneal artery: 46 cm/s, phasicity: Triphasic. Spectral broadening. Anterior tibial artery: 54 cm/s, phasicity: Triphasic. Spectral broadening. Dorsalis pedis artery: 21 cm/s, phasicity:Biphasic. Spectral broadening. LEFT LEG: Common femoral artery: 107 cm/s, phasicity: [Triphasic.. Profunda femoris artery: 67 cm/s, phasicity: Triphasic. Superficial femoral artery (proximal): 71 cm/s, phasicity: Triphasic. Spectral broadening. Superficial femoral artery (mid): 72 cm/s, phasicity: Triphasic. Superficial femoral artery (distal): 79 cm/s, phasicity: Triphasic. Spectral broadening. Popliteal artery: 67 cm/s, phasicity: Triphasic. Spectral broadening. Posterior tibial artery: 76 cm/s, phasicity: Triphasic. Spectral broadening. Peroneal artery: 34 cm/s, phasicity: Biphasic. Spectral broadening. Anterior tibial artery: 51 cm/s, phasicity: Triphasic. Spectral broadening. Dorsalis pedis artery: 39 cm/s, phasicity: Biphasic. Spectral broadening. BRACHIAL PRESSURES: Right: 146 Left: 145 ANKLE PRESSURES: Right: PT 157, DP 159 Left: PT 168, DP 154 ANKLE-BRACHIAL INDEX: Right: 1.09 Left: 1.15 ANKLE PVR WAVEFORMS: Right: Normal Left: Normal US/US arterial duplex BI w/ BETINA IMPRESSION: Right leg: Mild to moderate inflow disease, dorsalis pedis artery. Left leg: Mild to moderate inflow disease, dorsalis pedis artery. BETINA Reference: - >1.4 = calcified vessels - 0.9 - 1.4 = normal - no significant arterial disease - 0.7 - 0.89 = mild peripheral arterial disease - 0.51 - 0.69 = moderate peripheral arterial disease - 0.50 = severe peripheral arterial disease - < .30 = critical arterial disease Electronically signed by: Niels Juan MD 04/29/2025 02:56 PM EST RP Dictated By: Niels Ohara MD Signed By: <Electronically signed by Niels Guidry MDin OV> 04/29/25 1456 DD/ 1405 TD/TT: 04/29/25 1430 Stone Crusher Operator: us Sary Cowan MD CV VASCULAR PROCEDURE S Edited Result - Final [facility] [address] [place] [phone] * MR Lumbar Spine w/o Contrast (03/07/2025 7:11 PM EDT) Anatomical Region Laterality Modality Spine, L-spine Magnetic Resonan ce 03/07/2025 7:11 PM EDT Narrative 03/07/2025 7:12 PM EDT [address] [address] Magnetic Resonance Report Signed Patient: Michael Yadav MR# : [id number] : 1960 Acct:[id number] Age/Sex: 64 / M ADM Date: 03/05/25 Loc: HO.MRI Attending Dr: Sary Cowan MD Ordering Physician: Sary Chavez MD Date of Service: 03/05/25 Procedure(s): MR lumbar spine wo con Accession Number(s): [id number] cc: Sary Chavez MD; Elizabeth Espinal DO Reason for Exam: persistent worsening back pain CLINICAL HISTORY: persistent worsening back pain MR lumbar spine without gadolinium Comparison: CR/SR - XR LUMBAR SPINE 2-3 VIEWS - 10/29/24 12:20 EDT Findings: No acute fracture or pathologic bone lesion. Cauda equina and conus medullaris within normal limits. L1-2: No significant central canal or neural foraminal stenosis. L2-3: No significant central canal stenosis. Bilateral broad-based disc bulges with [id number] neural foraminal stenosis with impingement of the exiting L2 nerve roots. L3-4: Grade 1 anterolisthesis of L3 over L4. Broad-based disc bulge with minimal central canal stenosis and mild to moderate bilateral neural foraminal stenosis with impingement on the exiting L3 nerve roots. L4-5: Central annular fissure. Minimal broad-based disc bulge with minimal central canal stenosis and moderate bilateral neural foraminal stenosis with impingement of the exiting L4 nerve roots. L5-S1: Broad-based disc bulge non impinging of the thecal sac with mild left and [id number]-apkxigqg right neural foraminal stenosis with impingement on the exiting L5 nerve roots. Paraspinous musculature intact. Filum terminale at L1-2 level. IMPRESSION: 1. Grade 1 anterolisthesis of L3 over L4 with broad-based disc bulge, minimal central canal stenosis, and mild to moderate bilateral neural foraminal stenosis impinging L3 nerve roots. 2. Multilevel degenerative changes with disc bulges and neural foraminal stenosis, most pronounced at L2-3, L4-5, and L5-S1 levels, impinging on exiting nerve roots. 3. No acute fracture or pathologic bone lesion. This document has been electronically signed by: Raul Ashford MD on 03/07/2025 19:11:52 Dictated By: Raul Ashford MD Signed By: <Electronically signed by Raul Ashford MD in OV> 03/07/251911 DD/ 10 TD/TT: 03/07/251910 Stone Crusher Operator: Procedure Note Donotuseinterpreter, Image - 03/07/2025 [place] [address] Magnetic Resonance Report Signed Patient: Kat Yadav# : [id number] : 1960cct:[id number] Age/Sex: 64 / MADM Date: 03/05/25 Loc: HO.MRI Attending Dr: Sary Cowan MD Ordering Physician: Sary Chavez MD Date of Service: 03/05/25 Procedure(s): MR lumbar spine wo con Accession Number(s): [id number] cc: Sary Chavez MD; Elizabeth Espinal DO Reason for Exam: persistent worsening back pain CLINICAL HISTORY: persistent worsening back pain MR lumbar spine without gadolinium Comparison: CR/SR - XR LUMBAR SPINE 2-3 VIEWS - 10/29/24 12:20 EDT Findings: No acute fracture or pathologic bone lesion. Cauda equina and conus medullaris within normal limits. L1-2: No significant central canal or neural foraminal stenosis. L2-3: No significant central canal stenosis. Bilateral broad-based disc bulges with vrhi-ph-gjyqzmyg neural foraminal stenosis with impingement of the exiting L2 nerve roots. L3-4: Grade 1 anterolisthesis of L3 over L4. Broad-based disc bulge with minimal central canal stenosis and mild to moderate bilateral neural foraminal stenosis with impingement on the exiting L3 nerve roots. L4-5: Central annular fissure. Minimal broad-based disc bulge with minimal central canal stenosis and moderate bilateral neural foraminal stenosis with impingement of the exiting L4 nerve roots. L5-S1: Broad-based disc bulge non impinging of the thecal sac with mild left and [id number]-fx-lqlpjtdn right neural foraminal stenosis with impingement on the exiting L5 nerve roots. Paraspinous musculature intact. Filum terminale at L1-2 level. IMPRESSION: 1. Grade 1 anterolisthesis of L3 over L4 with broad-based disc bulge, minimal central canal stenosis, and mild to moderate bilateral neural foraminal stenosis impinging L3 nerve roots. 2. Multilevel degenerative changes with disc bulges and neural foraminal stenosis, most pronounced at L2-3, L4-5, and L5-S1 levels, impinging on exiting nerve roots. 3. No acute fracture or pathologic bone lesion. This document has been electronically signed by: Raul Ashford MD on 03/07/2025 19:11:52 Dictated By: Raul Ashford MD Signed By: <Electronically signed by Raul Ashford MD in OV> 03/07/251911 DD/ 10 TD/TT: 03/07/251910 Stone Crusher Operator: Sary Cowan MD IMG MRI PROCEDURES Ed ited Result - Final * Hepatitis C Antibody with Reflex to HCV, RNA, Quantitative, Real-Time PCR (10/13/2024 9:19 AM EDT) Hepatitis C Antibody Nonreactive Nonreactive [facility] Comment:Antibodies to HCV no t detected; does not exclude early acuteHCV infection. Blood Venous blood specimen / Unknown 10/13/2024 9:19 AM EDT 10/13/2024 9:19 AM EDT Elizabeth Espinal LAB BLOOD ORDERABLES Final R esult Performing Organization Address [facility]/ZIP Co de Phone Number [facility] [address] [place] [phone] * HIV-1/2 Antigen and Antibodies, Fourth Generation, with Reflexes (10/13/2024 9:19 AM EDT) HIV AB/AG Nonreactive Nonreactive [facility] Comment:HIV-1 p24 Ag and/or HIV-1/HIV-2 Ab not detected.A test result that is nonreactive does not exclude thepossibility of exposure to or infection with HIV-1 and/orHIV-2. Nonreactive results in this assay for individualswith prior exposure to HIV-1 and/or HIV-2 may be due toantigen and antibody levels that are below the limit ofdetection of this assay.The [employer] HIV Ag/Ab Combo assay result andsupplemental assay results should be interpreted inconjunction with the patient's clinical presentation,history and other laboratory results. If the results areinconsistent with clinical evidence, additional testing issuggested to confirm the result. Blood Venous blood specimen / Unknown 10/13/2024 9:19 AM EDT 10/13/2024 9:19 AM EDT Elizabeth Teddy LAB BLOOD ORDERABLES Final R esult Performing Organization Address [facility]/ZIP Co de Phone Number [facility] [address] [place] [phone] * (ABNORMAL) Lipid Panel, Standard (10/13/2024 9:19 AM EDT) Triglycerides 661(H) <150 mg/dL [facility] Comment:Desirable Triglyceri de: less than 150 mg/dLBorderline High Triglyceride 150-199 mg/dLHigh Triglyceride: 200-499 mg/dLVery High Triglyceride: greater than or equal to 5OO mg/dL Cholesterol 247(H) <200 mg/dL [facility] Comment:Desirable Cholestero l: less than 200 mg/dLBorderline High Cholesterol: 200-239 mg/dLHigh Cholesterol: greater than 239 mg/dL LDL Cholesterol Calculated TNP <100 mg/dL [facility] Comment:Unable to calculate the LDL. The formula of Friedwald,Aguila, and Eben is only valid if the triglycerides areless than 400 mg/dl. HDL Cholesterol 46 >40 mg/dL [facility] LABS Comment:Desirable HDL: great er than 40 mg/dL Note: This HDL assay may give artificially low results in patients with liver disease. Blood Venous blood specimen / Unknown 10/13/2024 9:19 AM EDT 10/13/2024 9:19 AM EDT us Elizabeth Espinal DO LAB BLOOD ORDERABLES Final R esult [facility] [address] [place] [phone] from Last 3 Months or Most Recently Relevant to Health Maintenance [facility] Care Teams Parts Salesman Relationship Specialty Start Date End Date Elizabeth Espinal DO [address] [place] [phone] PCP - General Family Medicine 09/03/24
--- OUTSIDE RECORDS SUMMARY | 2025-04-29 21:04 | XMS_ITS | Encounter Summary ---
Author Organization [employer] [facility] Address [address] [facility] 7t [place] [address] Care Team Providers Care Kiln Fireman Name Role Phone Elizabeth Espinal DO Primary Care Provider [phone] Encounter Details Date Type Department Care Team (Late st Contact Info) Description 04/29/2025 Orders Only [facility] [address] [place] [phone] Sary Chavez MD [address] [place] [address] Social History Tobacco Use Types Packs/Day Years Used Date Smoking Tobacco: Never Smokeless Tobacco: Never Sex and Gender Information Value Date Recorded Sex Assigned at Male 09/03/2024 8:38 AM EDT Legal Sex Male 1:53 PM EST Gender Identity Male 09/03/2024 8:38 AM EDT Sexual Orientation Straight 09/03/2024 8: 39 AM EDT documented as of this encounter Plan of Treatment Upcoming Encounters Date Type Department Care Team (Late st Contact Info) Description 05/12/2025 9:15 AM EST Office Visit [facility] [address] [place] [phone] Elizabeth Espinal DO [address] [place] [phone] documented as of this encounter Procedures Procedure Name Priority Date/Time Associated Diagnosis Comments [facility] US LOWER EXTREMITY ARTERIAL DUPLEX BILATERAL WITH BETINA Routine 04/29/2025 2:05 PM EST documented in this encounter Results * [facility] US Lower Extremity Arterial Duplex Bilateral With Betina (04/29/2025 2:05 PM EST) 04/29/2025 2:05 PM EST Narrative [facility] - 04/29/2025 2:59 PM [facility] [address] [place] [phone] Ultrasound Report Signed Patient: Michael Yadav MR# : [id number] : [id number] Acct:[id number] Age/Sex: 64 / M ADM Date: 04/29/25 Loc: HO.US Attending Dr: Sary Cowan MD Ordering Physician: Sary Chavez MD Date of Service: 04/29/25 Procedure(s): US arterial duplex BI w/ BETINA Accession Number(s): [id number] cc: Sary Chavez MD; Elizabeth Espinal DO [...] 04/29/25 1456 DD/ 1405 TD/TT: 04/29/25 1430 Legal Entity Controller: Procedure Note Donotuseinterpreter, Image - 04/29/[address] [place] [address] Ultrasound Report Signed Patient: Kat Yadav# : [id number] : 1Acct:[id number] Age/Sex: 64 / MADM Date: 04/29/25 Loc: HO.US Attending Dr: Sary Cowan MD Ordering Physician: Sary Chavez MD Date of Service: 04/29/25 Procedure(s): US arterial duplex BI w/ BETINA Accession Number(s): [id number] cc: Sary Chavez MD; Elizabeth Espinal DO [...] by: Niels Juan MD 04/29/2025 02:56 PM [facility] Dictated By: Niels Ohara MD Signed By: <Electronically signed by Niels Guidry MDin OV> 04/29/25 1456 DD/ 1405 TD/TT: 04/29/25 1430 Legal Entity Controller: us Sary Cowan MD CV VASCULAR PROCEDURE S Edited Result - Final [facility] [address] [place] [phone] documented in this encounter Visit Diagnoses Not on filedocumented in this encounter Care Teams Kiln Fireman Relationship Specialty Start Date End Date Elizabeth Espinal DO [address] [place] [address] PCP - General Family Medicine 09/03/24 documented as of this encounter
--- OUTSIDE RECORDS SUMMARY | 2025-04-29 21:04 | XMS_ITS | Encounter Summary ---
Author Organization [facility] Address [address] [facility] 7t [place] [address] Care Team Providers Care Career Services Coordinator Name Role Phone Elizabeth Espinal DO Primary Care Provider [phone] Reason for Visit * Reason Comments Med Refill Encounter Details Date Type Department Care Team (Late st Contact Info) Description 04/29/2025 Refill [facility] [address] [place] [phone] Elizabeth Espinal DO [address] [place] [address] Social History Tobacco Use Types Packs/Day Years [...] Description 05/12/2025 9:15 AM EST Office Visit [facility] [address] [place] [phone] Elizabeth Espinal DO [address] [place] [address] documented as of this encounter Visit Diagnoses Not on filedocumented in this encounter Care Teams Career Services Coordinator Relationship Specialty Start Date End Date Elizabeth Espinal DO [address] [place] [phone] PCP - General Family Medicine 09/03/24 documented as of this encounter
== END 2025-04-29 13:46 ==
LOC: HO.US 13:45
PROVIDERS: PCP Family Medicine; Visit Provider Internal Medicine
DX: M79.604 Pain in right leg (principal); M79.605 Pain in left leg
CPT/HCPCS: 93922; 93925

== ENCOUNTER → 2025-04-29 14:05 | Outpatient (BNV) | payer MEDICAID, SELFPAY | PROVIDERS: PCP Family Medicine; Visit Provider Radiology Diagnostic Radiology | DX: M79.604 Pain in right leg (principal) | CPT/HCPCS: 93925 ==

== ENCOUNTER 2025-05-03 09:45 | Outpatient (RCR) | payer MEDICAID, SELFPAY | END 2025-05-03 12:54 | disposition home or self-care (01) | LOC: HO.PT 09:45 | PROVIDERS: PCP Family Medicine; Visit Provider Internal Medicine | DX: M54.42 Lumbago with sciatica, left side (principal); M54.41 Lumbago with sciatica, right side; G89.29 Other chronic pain | CPT/HCPCS: 97110; 97116; 97140; 97161 ==

== ENCOUNTER 2025-05-12 10:02 | Outpatient (REF) | payer MEDICAID, SELFPAY ==
--- OUTSIDE RECORDS SUMMARY | 2025-05-12 09:15 | XMS_ITS | Encounter Summary ---
Author Organization [employer] Address [address] [facility] 7t [place] [address] Care Team Providers Care Auto Glass Worker Name Role Phone Elizabeth Espinal DO Primary Care Provider [phone] Reason for Referral * Imaging (Routine) - Authorized Specialty Diagnoses / Procedures Referred By Contac t Referred To Contact Radiology Diagnoses Elevated LFTs Procedures US Abdomen Complete Elizabeth Espinal DO [address] [place] [address] Phone: tel: fax: [facility] [address] [place] [phone] Phone: tel: fax: Referral ID Status Reason Start Date Expiration Date V isits Requested Visits Authorized [id number] Authorized 05/12/2025 05/12/2026 1 1 Encounter Details Date Type Department Care Team (Late st Contact Info) Description 05/12/2025 9:15 AM EST Office Visit [facility] [address] [place] [address] Eilzabeth Espinal DO [address] [place], [place] [phone] Essential hypertension (Primary Dx); Other hyperlipidemia; Peripheral arterial disease; Chronic bilateral low back pain with bilateral sciatica; Peripheral polyneuropathy; Elevated LFTs; Healthcare maintenance Social History Tobacco Use Types Packs/Day Years Used Date Smoking Tobacco: Never Smokeless Tobacco: Never Depression Answer Date Recorded Patient Health Questionnaire-9 Score 3 05/12/2025 Patient Health Questionnaire-9 Score 3 05/12/2025 Last PHQ-9: Questionnaire Data Not on file 1 07/13/2024 Housing Stability Answer Date Recorded What is your housing situation today? I have greg juares 04/30/[address] you li ve. Do you have problems with any of the following? None of the above 04/30/2025 Food Insecurity Answer Date Recorded Within the past 12 months, y ou worried that your food would run out before you got money to buy more: Never True 04/30/2025 Within the past 12 months,th e food you bought just didn't last and you didn't have enough money to get more: Never True 04/2025 Transportation Answer Date Recorded In the past 12 months, has l ack of transportation kept you from medical appts, meetings, work or from getting things needed for daily living? Yes, it has kept me from non-medical meetings, work, or getting things that I need 04/30/2025 Utilities Answer Date Recorded In the past 12 months, has t he electric, gas, oil or water company threatened to shut off services in your home? No 04/30/2025 Depression Answer Date Recorded Patient Health Questionnaire-2 Score 1 05/12/2025 Internet Access Answer Date Recorded Internet Access Q1 Yes 04/30/2025 Internet Access Q2 Not on file 04/30/2025 Sex and Gender Information Value Date Recorded Sex Assigned at Male 09/03/2024 8:38 AM EDT Legal Sex Male 1:53 PM EST Gender Identity Male 09/03/2024 8:38 AM EDT Sexual Orientation Straight 09/03/2024 8: 39 AM EDT documented as of this encounter Last Filed Vital Signs Vital Sign Reading Time Taken Comments Blood Pressure 128/78 05/12/2025 9:05 AM EST Pulse 90 05/12/2025 9:05 AM EST Temperature 36.9 C (98.4 F) 05/12/2025 9:05 AM EST Respiratory Rate 21 05/12/2025 9:05 AM EST Oxygen Saturation 98% 05/12/2025 9:05 AM EST Inhaled Oxygen Concentration - - Weight 90.7 kg (200 lb) 05/12/2025 9:05 AM EST Height 170.2 cm (5' 7 ) 05/12/2025 9:05 AM EST Body Mass Index 31.32 05/12/2025 9:05 AM EST documented in this encounter Functional Status * Over the past 2 weeks, how often have you been bothered by any of the following problems? Question Answer Date of Assessment Author Patient Health Questionnaire -2 Score 1 05/12/2025 9:07 AM Rubi Dan MA * Little interest or pleasure in doing things Answer Date of Assessment Author Not at all 05/12/2025 9:07 AM Risa Dan MA * Feeling down, depressed, or hopeless Answer Date of Assessment Author Several days 05/12/2025 9:07 AM Risa Dan MA * Trouble falling or staying asleep, or sleeping too much Answer Date of Assessment Author Not at all 05/12/2025 9:07 AM Risa Dan MA * Feeling tired or having little energy Answer Date of Assessment Author Several days 05/12/2025 9:07 AM Risa Dan MA * Poor appetite or overeating Answer Date of Assessment Author Not at all 05/12/2025 9:07 AM Risa Dan MA * Feeling bad about yourself - or that you are a failure or have let yourself or your family down Answer Date of Assessment Author Not at all 05/12/2025 9:07 AM Risa Dan MA * Trouble concentrating on things, such as reading the newspaper or watching television Answer Date of Assessment Author Several days 05/12/2025 9:07 AM Risa Dan MA * Moving or speaking so slowly that other people could have noticed? Or the opposite - being so fidgety or restless that you have been moving around a lot more than usual. Answer Date of Assessment Author Not at all 05/12/2025 9:07 AM Risa Dan MA * Thoughts that you would be better off or hurting yourself in some way Answer Date of Assessment Author Not at all 05/12/2025 9:07 AM Risa Dan MA * Patient Health Questionnaire-9 Score Answer Date of Assessment Author 3 05/12/2025 9:07 AM Risa Dan MA * Over the last 2 weeks, how often have you been bothered by any of the following problems? Question Answer Date of Assessment Author Feeling nervous, anxious, or on edge 0 05/12/2025 9:07 AM Rubi Dan MA Not being able to stop or co ntrol worrying 1 05/12/2025 9:07 AM Rubi Dan MA Worrying too much about diff erent things 0 05/12/2025 9:07 AM Rubi Dan MA Trouble relaxing 0 05/12/2025 9:07 AM Rubi Dawson MA Being so restless that it is hard to sit still 0 05/12/2025 9:07 AM Rubi Dan MA Becoming easily annoyed or irritable 0 05/12/2025 9:07 AM Rubi Dan MA Feeling afraid as if somethi ng awful might happen 0 05/12/2025 9:07 AM Rubi Dan MA TARA-7 Total Score 1 05/12/2025 9:07 AM Rubi Dan MA * How difficult have these problems made it for you to do your work, take care of things at home, or get along with other people? Answer Date of Assessment Author Not difficult at all 05/12/2025 9:07 AM Rubi Ventura MA documented as of this encounter Plan of Treatment Upcoming Encounters Date Type Department Care Team (Late st Contact Info) Description 05/18/2025 1:00 PM EST Clinical Support [facility] [address] [place] [address] Scheduled Orders Name Type Priority Associated Diagnoses Orde r Schedule US Abdomen Complete Imaging Routine Elevated LFTs Expected: 05/12/2025, Expires: 05/12/2026 Lipid Panel, Standard Lab Routine Other hyperlipidemia Expected: 05/12/2025 (Approximate), Expires: 05/12/2026 TSH Lab Routine Peripheral polyneuropathy Expected: 05/12/2025 (Approximate), Expires: 05/12/2026 Vitamin B12 (Cobalamin) and Folate Panel, Serum Lab Routine Peripheral polyneuropathy Expected: 05/12/2025 (Approximate), Expires: 05/12/2026 XIN Screen,IFA, with Reflex to Titer and Pattern Lab Routine Peripheral polyneuropathy Expected: 05/12/2025 (Approximate), Expires: 05/12/2026 C-reactive Protein Lab Routine Peripheral polyneuropathy Expected: 05/12/2025 (Approximate), Expires: 05/12/2026 Sed Rate by Modified Westergren Lab Routine Peripheral polyneuropathy Expected: 05/12/2025, Expires: 05/12/2026 Creatine Kinase, Total Lab Routine Peripheral polyneuropathy Expected: 05/12/2025, Expires: 05/12/2026 Protein, Total and Protein Electrophoresis Lab Routine Peripheral polyneuropathy Expected: 05/12/2025 (Approximate), Expires: 05/12/2026 Protein Electrophoresis and Total Protein, Random Urine Lab Routine Peripheral polyneuropathy Expected: 05/12/2025 (Approximate), Expires: 05/12/2026 documented as of this encounter Visit Diagnoses Diagnosis Essential hypertension- Primary Unspecified essential hypertension Other hyperlipidemia Peripheral arterial disease Unspecified peripheral vascular disease Chronic bilateral low back pain with bilateral sciatica Peripheral polyneuropathy Elevated LFTs Other abnormal blood chemistry Healthcare maintenance documented in this encounter Additional Health Concerns Assessment Noted Time PHQ-9 Depression Total Score: 3 05/12/20 25 9:07 AM EST documented as of this encounter Care Teams Auto Glass Worker Relationship Specialty Start Date End Date Elizabeth Espinal DO [address] [place] [phone] PCP - General Family Medicine 09/03/24 documented as of this encounter
--- OUTSIDE RECORDS SUMMARY | 2025-05-12 10:13 | XMS_ITS | Clinical Summary ---
Author Organization [employer] Address [address] [facility] [address] [place] [address] Care Team Providers Care Cooky Machine Operator Name Role Phone Elizabeth Espinal DO Primary Care Provider [phone] Allergies No known active allergies Medications atorvastatin [...] PCP. Tramadol prescription from this weekend at [facility] had been sent to [facility] pharmacy, [facility]. I told patient to pick it up today, he agreed with POC Follow-up with PCP recommended Chronic pain of right knee 10/29/2024 Peripheral neuropathy 10/29/2024 Hyperlipidemia 10/29/2024 Hypertriglyceridemia 10/29/2024 Vitamin D deficiency 10/29/2024 Encounters Date Type Department Care Team Description 05/12/2025 9:15 AM EST Office Visit [facility] [place] [address] Elizabeth Espinal DO Essential hypertension (Primary Dx); Other hyperlipidemia; Peripheral arterial disease; Chronic bilateral low back pain with bilateral sciatica; Peripheral polyneuropathy; Elevated LFTs; Healthcare maintenance 05/12/2025 Travel 05/11/2025 Telephone [facility] [place] [address] Elizabeth Espinal DO Chart Prep 05/03/2025 Results Follow-Up [facility] [place] [address] Sary Chavez MD [facility] Lower Extremity Arterial Duplex Bilateral With Betina 04/30/2025 Patient Outreach [facility] [place] [address] Elizabeth Espinal DO Care Coordination (PT1) 04/30/2025 Patient Outreach [facility] [place] [address] Elizabeth Espinal DO Pre-visit Planning (SDOH screening negative and tobacco screening negative) 04/29/2025 Orders Only [facility] [place] [address] Sary Chavez MD 04/29/2025 Refill [facility] [place] [address] Elizabeth Espinal DO 04/23/2025 Refill [facility] [place] [address] Shannon Whitt RN Essential hypertension 04/22/2025 10:30 AM EST Clinical Support [facility] [place] [id number] Shannon Whitt RN Essential hypertension 04/22/2025 Refill [facility] [address] [place] [address] Shannon Whitt RN Chronic right-sided low back pain with right-sided sciatica 04/22/2025 Travel 04/07/2025 Telephone [facility] [address] [place] [address] Elizabeth Espinal DO BP medications 04/07/2025 Travel 03/24/2025 9:40 AM EST Office Visit [facility] [address] [place] [address] Markos Falcon MD Chronic right-sided low back pain with right-sided sciatica (Primary Dx); Essential hypertension 03/24/2025 Travel 03/08/2025 Results Follow-Up [facility] [address] [place] [address] Sary Chavez MD MR Lumbar Spine w/o Contrast 03/01/2025 Refill [facility] [address] [place] [address] Rylie Real NP Chronic right-sided low back pain with right-sided sciatica 02/21/2025 Refill [facility] [address] [place] [address] Elizabeth Espinal DO Essential hypertension 02/19/2025 10:00 AM EDT Office Visit [facility] [address] [place] [address] Sary Chavez MD Chronic bilateral low back pain with bilateral sciatica (Primary Dx); Essential hypertension; Right leg pain; Bilateral leg pain 02/19/2025 Travel 02/10/2025 Telephone [facility] [address] [place] [address] Elizabeth Espinal DO telephone call from Last 3 Months Social History Tobacco Use Types Packs/Day Years Used Date Smoking Tobacco: Never Smokeless Tobacco: Never Tobacco Cessation:Counseling Given: Not Answered Depression Answer Date Recorded Patient Health Questionnaire-9 [...] Mass Index 31.32 05/12/2025 9:05 AM EST Plan of Treatment Upcoming Encounters Date Type Department Care Team (Late st Contact Info) Description 05/18/2025 1:00 PM EST Clinical Support [address] [address] Health Maintenance Due Date Last Done Comments CT Colonography 1960 Colonoscopy 1960 Colorectal Cancer Screening 1960 FIT DNA/Cologuard 1960 FIT 1960 FOBT 1960 Sigmoidoscopy 1960 Disability Screening 1960 DTaP/Tdap/Td Vaccines (1 - Tdap) 10/02/1979 Pneumococcal Vaccine: 50+ Years (1 of 1 - PCV) 2010 Zoster Vaccines (1 of 2) 2010 COVID-19 Vaccine (1 - 2024-2 6 season) 2025 Influenza Vaccine (#1) 2025 SDOH Screening 04/30/2026 04/30/2025 Alcohol/Substance Use Screening 05/12/2026 05/12/2025 Depression Screening 05/12/2026 05/12/2025, 05/12/2025 Tobacco Screening 05/12/2026 05/12/2025 Lipid Panel 10/13/2029 10/13/2024 RSV Patients and Patients Aged 60 years or older (1 - [...] Procedure Name Priority Date/Time Associated Diagnosis Comments [facility] US LOWER EXTREMITY ARTERIAL DUPLEX BILATERAL WITH [...] Recently Relevant to Health Maintenance Results * [facility] US Lower Extremity Arterial Duplex Bilateral With Betina (04/29/2025 2:05 PM EST) 04/29/2025 2:05 PM EST [facility] IMAGING - 04/29/2025 2:59 PM EST [address] [address] Ultrasound Report Signed Patient: Michael Yadav MR# : [id number] : 1960 Acct:[id number] Age/Sex: 64 / M ADM Date: 04/29/25 Loc: HO.US Attending Dr: Sary Cowan MD Ordering Physician: Sary Chavez MD Date of Service: 04/29/25 Procedure(s): US arterial duplex BI w/ BETINA Accession Number(s): [id number] cc: Sary Chavez MD; Elizabeth Espinal DO [...] 04/29/25 1456 DD/ 1405 TD/TT: 04/29/25 1430 Tool Polishing Machine Operator: Procedure Note Donotuseinterpreter, Image - 04/29/2025 [place] [address] Ultrasound Report Signed Patient: Kat Yadav# : [id number] : 1960cct:[id number] Age/Sex: 64 / MADM Date: 04/29/25 Loc: . Attending Dr: Sary Cowan MD Ordering Physician: Sary Chavez MD Date of Service: 04/29/25 Procedure(s): US arterial duplex BI w/ BETINA Accession Number(s): [id number] cc: Sary Chavez MD; Elizabeth Espinal DO [...] 04/29/25 1456 DD/ 1405 TD/TT: 04/29/25 1430 Tool Polishing Machine Operator: us Sary Cowan MD CV VASCULAR PROCEDURE S Edited Result - Final Performing Organization Address City/State/[facility] Co de Phone Number [facility] [address] [place] [address] * MR Lumbar Spine w/o Contrast (03/07/2025 7:11 PM EDT) Anatomical Region Laterality Modality Spine, L-spine Magnetic Resonan ce 03/07/2025 7:11 PM EDT Narrative 03/07/2025 7:12 PM EDT [place] [address] Magnetic Resonance Report Signed Patient: Michael Yadav MR# : [id number] : 1960 Acct:[id number] Age/Sex: 64 / M ADM Date: 03/05/25 Loc: HO.MRI Attending Dr: Sary Cowan MD Ordering Physician: Sary Chavez MD Date of Service: 03/05/25 Procedure(s): MR lumbar spine wo con Accession Number(s): [id number] cc: Sary Chavez MD; Elizabeth Espinal DO [...] canal stenosis. Bilateral broad-based disc bulges with usxr-he-brsdagjv neural foraminal stenosis with impingement of the [...] the thecal sac with mild left and lfyy-dg-bqwqcbpu right neural foraminal stenosis with impingement on [...] in OV> 03/07/251911 DD/ 10 TD/TT: 03/07/251910 Tool Polishing Machine Operator: Procedure Note Donotuseinterpreter, Image - 03/07/[address] [address] Magnetic Resonance Report Signed Patient: Gabby YadavSiva# : [id number] : 1Acct:[id number] Age/Sex: 64 / MADM Date: 03/05/25 Loc: HO.MRI Attending Dr: Sary Cowan MD Ordering Physician: Sary Chavez MD Date of Service: 03/05/25 Procedure(s): MR lumbar spine wo con Accession Number(s): [id number] cc: Sary Chavez MD; Elizabeth Espinal DO [...] canal stenosis. Bilateral broad-based disc bulges with rfte-zt-xwyhpyqq neural foraminal stenosis with impingement of the [...] the thecal sac with mild left and gjxo-pb-bznuuarp right neural foraminal stenosis with impingement on [...] in OV> 03/07/251911 DD/ 10 TD/TT: 03/07/251910 Tool Polishing Machine Operator: Sary Cowan MD IMG MRI PROCEDURES Ed ited Result - Final * Hepatitis C Antibody with Reflex to HCV, RNA, Quantitative, Real-Time PCR (10/13/2024 9:19 AM EDT) Hepatitis C Antibody Nonreactive Nonreactive [facility] Comment:Antibodies to HCV no t detected; does not exclude early acuteHCV infection. Blood Venous blood specimen / Unknown 10/13/2024 9:19 AM EDT 10/13/2024 9:19 AM EDT Elizabeth Espinal DO LAB BLOOD ORDERABLES Final R esult [facility] [address] [place] [phone] * HIV-1/2 Antigen and Antibodies, Fourth Generation, with Reflexes (10/13/2024 9:19 AM EDT) HIV AB/AG Nonreactive Nonreactive [facility] Comment:HIV-1 p24 Ag and/or HIV-1/HIV-2 Ab not detected.A test result that is nonreactive does not exclude thepossibility of exposure to or infection with HIV-1 and/orHIV-2. Nonreactive results in this assay for individualswith prior exposure to HIV-1 and/or HIV-2 may be due toantigen and antibody levels that are below the limit ofdetection of this assay.The [employer] HIV Ag/Ab Combo assay result andsupplemental assay results should be interpreted inconjunction with the patient's clinical presentation,history and other laboratory results. If the results areinconsistent with clinical evidence, additional testing issuggested to confirm the result. Blood Venous blood specimen / Unknown 10/13/2024 9:19 AM EDT 10/13/2024 9:19 AM EDT Elizabeth Teddy DO LAB BLOOD ORDERABLES Final R esult Performing Organization Address [facility] Co de Phone Number [facility] [address] [place] [phone] [phone] * (ABNORMAL) Lipid Panel, Standard (10/13/2024 9:19 AM EDT) Triglycerides 661(H) <150 mg/dL [facility] Comment:Desirable Triglyceri de: less than 150 mg/dLBorderline High Triglyceride 150-199 mg/dLHigh Triglyceride: 200-499 mg/dLVery High Triglyceride: greater than or equal to 5OO mg/dL Cholesterol 247(H) <200 mg/dL [facility] Comment:Desirable Cholestero l: less than 200 mg/dLBorderline High Cholesterol: 200-239 mg/dLHigh Cholesterol: greater than 239 mg/dL LDL Cholesterol Calculated TNP <100 mg/dL [facility] Comment:Unable to calculate the LDL. The formula of Friedwald,Aguila, and Eben is only valid if the triglycerides areless than 400 mg/dl. HDL Cholesterol 46 >40 mg/dL [facility] Comment:Desirable HDL: great er than 40 mg/dL Note: This HDL assay may give artificially low results in patients with liver disease. Blood Venous blood specimen / Unknown 10/13/2024 9:19 AM EDT 10/13/2024 9:19 AM EDT Elizabeth Espinal DO LAB BLOOD ORDERABLES Final R esult Performing Organization Address City/[facility]/ZIP Co de Phone Number [facility] [address] [place] [address] [phone] from Last 3 Months or Most Recently Relevant to Health Maintenance Insurance [facility] C3 Care Teams Cooky Machine Operator Relationship Specialty Start Date End Date Elizabeth Espinal DO [address] [place] [phone] PCP - General Family Medicine 09/03/24
--- OUTSIDE RECORDS SUMMARY | 2025-05-12 10:13 | XMS_ITS | Encounter Summary ---
Author Organization [employer] Address [address] [facility] [address] [place] [address] Care Team Providers Care Transition Teacher Name Role Phone Elizabeth Espinal DO Primary Care Provider [phone] Reason for Visit * Reason Onset Date Comments Chart Prep 05/11/2025 Encounter Details Date Type Department Care Team ([facility] st Contact Info) Description 05/11/[address] [facility] [address] [place] [address] Elizabeth Espinal DO [address] [place] [address] Chart Prep Social History Tobacco Use Types Packs/Day Years Used Date Smoking Tobacco: Never Smokeless Tobacco: Never Depression Answer Date Recorded Patient Health Questionnaire-9 Score 3 05/12/2025 Patient Health Questionnaire-9 Score 3 05/12/2025 Last PHQ-9: Questionnaire Data Not on file 1 07/13/2024 Housing Stability Answer Date Recorded What is your housing situation today? I have gregjose c juares 04/30/[address] you [...] encounter Miscellaneous Notes * Telephone Encounter - Rubi Sorensen [place] - 05/11/2025 9:55 AM EST Chart Prep Labs: done Images: done Referrals: complete [facility] Pain Management Vaccines due: Covid, Flu, PCV20, Tdap, and Zoster Screenings: colonoscopy Overdue care gaps: SBIRT, PHQ-9, TARA-7, and Disability screen documented in this encounter Plan of Treatment Upcoming Encounters Date Type Department Care Team (Late st Contact Info) Description 05/18/2025 1:00 PM EST Clinical Support [facility] [address] [place] [address] documented as of this encounter Visit Diagnoses Not on filedocumented in this encounter Care Teams Transition Teacher Relationship Specialty Start Date End Date Elizbaeth Espinal DO [address] [place] [address] PCP - General Family Medicine 09/03/24 documented as of this encounter
--- OUTSIDE RECORDS SUMMARY | 2025-05-12 10:13 | XMS_ITS | Encounter Summary ---
Author Organization [employer] Address [address] [facility] [place] [address] Care Team Providers Care Manager Performance Name Role Phone Elizabeth Espinal DO Primary Care Provider [phone] Encounter Details Date Type Department Care Team (Latest Contact Info) Description 05/12/2025 Travel Social History Tobacco Use Types Packs/Day Years Used Date Smoking Tobacco: Never Smokeless Tobacco: Never Depression Answer Date Recorded Patient Health Questionnaire-9 Score 3 05/12/2025 Patient Health Questionnaire-9 Score 3 05/12/2025 Last PHQ-9: Questionnaire Data Not on file 1 07/13/2024 Housing Stability Answer Date Recorded What is your housing situation today? I have greg mor 04/30/[address] you li [...] Description 05/18/2025 1:00 PM EST Clinical Support [facility] [address] [place] [address] documented as of this encounter Visit Diagnoses Not on filedocumented in this encounter Additional Health Concerns Assessment Noted Time PHQ-9 Depression Total Score: 3 05/12/20 9:07 AM EST documented as of this encounter Care Teams Manager Performance Relationship Specialty Start Date End Date Elizabeth Espinal DO [address] [place] [address] PCP - General Family Medicine 09/03/24 documented as of this encounter
[2025-05-12 16:28] LABS: Cholesterol 156 mg/dL (<200); HDL Cholesterol 71 mg/dL (>40); Thyroid Stimulating Hormone 6.14 uIU/mL (0.32-4.0); Triglycerides 111 mg/dL (<150)
[2025-05-12 16:48] LABS: Folate 9.2 ng/mL (> or = 4.0); Vitamin B12 > 2000 pg/mL (200-900)
[2025-05-17 13:42] LABS: Anti Nuclear Antibody Screen NEGATIVE (NEGATIVE)
[2025-05-18 10:08] LABS: Prot Elec - Albumin 4.5 g/dL (3.8-4.8); Prot Elec - Alpha1 0.3 g/dL (0.2-0.3); Prot Elec - Alpha2 0.7 g/dL (0.5-0.9); Prot Elec - Beta 1 0.5 g/dL (0.4-0.6); Prot Elec - Beta 2 0.5 g/dL (0.2-0.5); Prot Elec - Gamma 1.3 g/dL (0.8-1.7); Prot Elec - Total Protein 7.7 g/dL (6.1-8.1)
== END 2025-05-12 10:03 | disposition home or self-care (01) ==
LOC: HO.HHCL 10:02
PROVIDERS: PCP Family Medicine; Visit Provider Family Medicine
DX: E78.49 Other hyperlipidemia (principal); G62.9 Polyneuropathy, unspecified; Z01.84 Encounter for antibody response examination
CPT/HCPCS: 36415; 80061; 82550; 82607; 82746; 84165; 84443; 85652; 86038; 86140